=== PATIENT | male | born 1955 | race Caucasian/White ===

== ENCOUNTER → 2020-01-16 11:18 | Outpatient (BNVA) | payer OTHER, SELFPAY | PROVIDERS: PCP Internal Medicine; Referring Provider Internal Medicine; Visit Provider Urology | DX: Z76.89 Persons encountering health services in other specified circumstances (principal) ==

== ENCOUNTER 2020-01-19 06:30 | Outpatient (REF) | payer OTHER, SELFPAY ==
[2020-01-19 07:31] LABS: MANUAL DIFF FLAG NO
[2020-01-19 07:41] LABS: Basophils Percent Auto 0.3 % (0-2); Hematocrit 45.3 % (42-52); Hemoglobin 14.5 g/dl (14.0-18.0); Imm Gran Abs Auto 0.01 X10*3/uL (0.00-0.03); Imm Gran Pct Auto 0.3 % (0.0-0.4); Lymphocytes Absolute Auto 1.4 X10*3/uL (1.2-4.9); Lymphocytes Percent Auto 34.9 % (20-40); Mean Corpuscular Hemoglobin 30.5 pg (27.0-33.0); Mean Corpuscular Volume 95.2 fL (80-98); Mean Platelet Volume 11.4 fL (9.4-12.4); Monocytes Absolute Auto 0.3 X10*3/uL (0.1-1.2); Monocytes Percent Auto 8.8 % (2-11); Neutrophils Absolute Auto 2.2 X10*3/uL (2.0-8.3); Neutrophils Percent Auto 55.7 % (45-73); Platelet Count 158 X10*3/uL (160-400); Red Blood Count 4.76 X10*6/uL (4.60-5.80); Red Cell Distribution Width 12.6 % (11.0-16.0); White Blood Count 3.9 X10*3/uL (4.8-10.8)
[2020-01-19 08:21] LABS: Alanine Aminotransferase 19 U/L (0-40); Alkaline Phosphatase 59 U/L (39-117); Anion Gap 11 (12-20); Aspartate Amino Transferase 27 U/L (5-37); Bilirubin Total 0.5 mg/dL (0.0-1.0); Blood Urea Nitrogen 22 mg/dL (9-16); Carbon Dioxide 30 mmol/L (22-29); Chloride 105 mmol/L (96-108); Cholesterol 212 mg/dL; Estimated Glomerular Filt Rate > 60; Glucose Random 85 mg/dL (60-115); HDL Cholesterol 72 mg/dL; LDL Cholesterol Calculated 125 mg/dl; Potassium 4.5 mmol/l (3.3-5.1); Sodium 141 mmol/L (135-145); Total Protein 6.4 g/dL (6.5-8.0); Triglycerides 75 mg/dL
[2020-01-19 08:44] LABS: Thyroid Stimulating Hormone 3.16 mIU/mL (0.32-4.0)
[2020-01-19 08:46] LABS: PSA,Total (Free>4and<10) 3.62 ng/mL (0.00-4.00)
[2020-01-19 09:31] LABS: Folate 12.6 ng/mL (> or = 4.0); Vitamin B12 461 pg/mL (200-900)
== END 2020-01-19 06:31 | disposition home or self-care (01) ==
LOC: HO.LAB 06:30
PROVIDERS: Urology; PCP Internal Medicine; Visit Provider Internal Medicine
DX: N40.0 Benign prostatic hyperplasia without lower urinary tract symptoms (principal); R97.20 Elevated prostate specific antigen [PSA]; E78.00 Pure hypercholesterolemia, unspecified
CPT/HCPCS: 36415; 80053; 80061; 82607; 82746; 84153; 84443; 85025

== ENCOUNTER 2020-07-15 10:55 | Outpatient (REF) | payer MEDICARE, SELFPAY ==
[2020-07-15 12:32] LABS: Prostate Specific Antigen 3.99 ng/mL (<0.05-4.0)
== END 2020-07-15 10:56 | disposition home or self-care (01) ==
LOC: HO.LAB 10:55
PROVIDERS: PCP Internal Medicine; Visit Provider Urology
DX: Z12.5 Encounter for screening for malignant neoplasm of prostate (principal); R97.20 Elevated prostate specific antigen [PSA]
CPT/HCPCS: 36415; 84153

== ENCOUNTER → 2020-07-29 10:30 | Outpatient (BNVA) | payer MEDICARE, SELFPAY | PROVIDERS: PCP Internal Medicine; Visit Provider Urology | CPT/HCPCS: Q3014 ==

== ENCOUNTER 2021-01-24 06:20 | Outpatient (REF) | payer MEDICARE, SELFPAY ==
[2021-01-24 06:25] LABS: MANUAL DIFF FLAG NO
[2021-01-24 07:43] LABS: Basophils Percent Auto 0.5 % (0-2); Hematocrit 45.2 % (42-52); Hemoglobin 14.8 g/dl (14.0-18.0); Lymphocytes Absolute Auto 1.4 X10*3/uL (1.2-4.9); Lymphocytes Percent Auto 35.6 % (20-40); Mean Corpuscular HGB Conc 32.7 g/dl (31.0-36.0); Mean Corpuscular Hemoglobin 30.8 pg (27.0-33.0); Mean Platelet Volume 11.8 fL (9.4-12.4); Monocytes Absolute Auto 0.4 X10*3/uL (0.1-1.2); Monocytes Percent Auto 10.4 % (2-11); Neutrophils Absolute Auto 2.1 X10*3/uL (2.0-8.3); Neutrophils Percent Auto 53.5 % (45-73); Platelet Count 147 X10*3/uL (160-400); Red Blood Count 4.81 X10*6/uL (4.60-5.80); Red Cell Distribution Width 12.8 % (11.0-16.0); White Blood Count 3.9 X10*3/uL (4.8-10.8)
[2021-01-24 07:55] LABS: Alanine Aminotransferase 22 U/L (0-40); Albumin Level 4.2 g/dL (3.5-5.0); Alkaline Phosphatase 60 U/L (39-117); Anion Gap 12 (12-20); Aspartate Amino Transferase 29 U/L (5-37); Bilirubin Total 0.7 mg/dL (0.0-1.0); Blood Urea Nitrogen 22 mg/dL (9-16); Calcium 9.1 mg/dL (8.4-10.2); Carbon Dioxide 27 mmol/L (22-29); Chloride 107 mmol/L (96-108); Cholesterol 223 mg/dL; Estimated Glomerular Filt Rate > 60; Glucose Random 79 mg/dL (60-115); HDL Cholesterol 72 mg/dL; LDL Cholesterol Calculated 136 mg/dl; Potassium 4.2 mmol/L (3.3-5.1); Sodium 142 mmol/L (135-145); Total Protein 6.6 g/dL (6.5-8.0); Triglycerides 78 mg/dL
[2021-01-24 08:17] LABS: Free T4 (Free Thyroxine) 0.98 ng/dL (0.71-1.85)
[2021-01-24 08:19] LABS: PSA,Total (Free>4and<10) 4.81 ng/mL (0.00-4.00); Thyroid Stimulating Hormone 4.25 uIU/mL (0.32-4.0)
[2021-01-24 09:33] LABS: Folate 12.9 ng/mL (> or = 4.0); Vitamin B12 396 pg/mL (200-900)
[2021-01-25 10:45] LABS: Free Prostate Spec Ag 0.6 ng/mL; Percent Free Prostate Spec Ag 14 % (calc) (>25); Prostate Specific Ag Total 4.3 ng/mL (< OR = 4.0)
== END 2021-01-24 06:21 | disposition home or self-care (01) ==
LOC: HO.LAB 06:20
PROVIDERS: Urology; PCP Internal Medicine; Visit Provider Internal Medicine
DX: E78.00 Pure hypercholesterolemia, unspecified (principal); N13.8 Other obstructive and reflux uropathy; N40.1 Benign prostatic hyperplasia with lower urinary tract symptoms; R97.20 Elevated prostate specific antigen [PSA]
CPT/HCPCS: 36415; 80053; 80061; 82607; 82746; 84153; 84154; 84439; 84443; 85025

== ENCOUNTER → 2021-01-28 12:16 | Outpatient (BNVA) | payer MEDICARE, SELFPAY | PROVIDERS: PCP Internal Medicine; Visit Provider Urology | DX: N40.0 Benign prostatic hyperplasia without lower urinary tract symptoms (principal); R97.20 Elevated prostate specific antigen [PSA] | CPT/HCPCS: Q3014 ==

== ENCOUNTER 2021-06-23 08:04 | Outpatient (REF) | payer MEDICARE, SELFPAY ==
[2021-06-23 08:42] LABS: MANUAL DIFF FLAG NO
[2021-06-23 09:22] LABS: Basophils Percent Auto 0.5 % (0-2); Hematocrit 46.5 % (42.0-52.0); Hemoglobin 15.2 g/dl (14.0-18.0); Imm Gran Abs Auto 0.01 X10*3/uL (0.00-0.03); Imm Gran Pct Auto 0.2 % (0.0-0.4); Lymphocytes Absolute Auto 1.3 X10*3/uL (1.2-4.9); Lymphocytes Percent Auto 32.5 % (20-40); Mean Corpuscular HGB Conc 32.7 g/dl (31.0-36.0); Mean Corpuscular Hemoglobin 31.1 pg (27.0-33.0); Mean Corpuscular Volume 95.3 fL (80.0-98.0); Mean Platelet Volume 11.4 fL (9.4-12.4); Monocytes Absolute Auto 0.4 X10*3/uL (0.1-1.2); Monocytes Percent Auto 8.7 % (2-11); Neutrophils Absolute Auto 2.3 x10*3/uL (2.0-8.3); Neutrophils Percent Auto 58.1 % (45-73); Platelet Count 147 X10*3/uL (160-400); Red Blood Count 4.88 X10*6/uL (4.60-5.80); Red Cell Distribution Width 12.4 % (11.0-16.0)
[2021-06-23 10:12] LABS: Free T4 (Free Thyroxine) 0.97 ng/dL (0.71-1.85)
[2021-06-23 10:38] LABS: Thyroid Stimulating Hormone 2.81 uIU/mL (0.32-4.0)
[2021-06-23 16:22] LABS: PSA,Total (Free>4and<10) 3.51 ng/mL (0.00-4.00)
== END 2021-06-23 08:05 | disposition home or self-care (01) ==
LOC: HO.LAB 08:04
PROVIDERS: PCP Internal Medicine; Visit Provider Urology
DX: Z12.5 Encounter for screening for malignant neoplasm of prostate (principal); N13.8 Other obstructive and reflux uropathy; N40.1 Benign prostatic hyperplasia with lower urinary tract symptoms; R97.20 Elevated prostate specific antigen [PSA]; D69.6 Thrombocytopenia, unspecified
CPT/HCPCS: 36415; 84153; 84439; 84443; 85025

== ENCOUNTER → 2021-07-27 08:27 | Outpatient (BNVA) | payer MEDICARE, SELFPAY | PROVIDERS: PCP Internal Medicine; Visit Provider Urology | DX: N40.0 Benign prostatic hyperplasia without lower urinary tract symptoms (principal); R97.20 Elevated prostate specific antigen [PSA] | CPT/HCPCS: Q3014 ==

== ENCOUNTER 2021-10-25 13:53 | Outpatient (REF) | payer MEDICARE, SELFPAY ==
--- NOTE | ~2021-10-25 | XR_ITS ---
EXAMINATION: XR PELVIS WITH HIP, RIGHT XR SACROILIAC JOINTS CLINICAL INFORMATION: Sacrococcygeal disorders. Right hip and sacroiliac joint pain COMPARISON: None TECHNIQUE: Frontal view of the pelvis with 2 views of the right hip. 3 views of the sacroiliac joints. FINDINGS: There is no fracture or dislocation. The hips are well aligned. Joint spaces are maintained. The pelvic rim is intact. The pubic symphysis is well aligned. There is a normal bowel gas pattern. The sacroiliac joints are symmetric. No abnormal fusion. No abnormal sclerosis. There is some osteophyte formation along the inferior aspect of the bilateral sacroiliac joints, right greater than left. XR/XR sacroiliac joint 1-2V IMPRESSION: Mild degenerative changes along the inferior aspect of the sacroiliac joints, right greater than left. Otherwise unremarkable appearance of the pelvis/hips.
--- NOTE | ~2021-10-25 | XR_ITS ---
EXAMINATION: XR PELVIS WITH HIP, RIGHT XR SACROILIAC JOINTS CLINICAL INFORMATION: Sacrococcygeal disorders. Right hip and sacroiliac joint pain COMPARISON: None TECHNIQUE: Frontal view of the pelvis with 2 views of the right hip. 3 views of the sacroiliac joints. FINDINGS: There is no fracture or dislocation. The hips are well aligned. Joint spaces are maintained. The pelvic rim is intact. The pubic symphysis is well aligned. There is a normal bowel gas pattern. The sacroiliac joints are symmetric. No abnormal fusion. No abnormal sclerosis. There is some osteophyte formation along the inferior aspect of the bilateral sacroiliac joints, right greater than left. XR/XR hip RT w PEL1V IMPRESSION: Mild degenerative changes along the inferior aspect of the sacroiliac joints, right greater than left. Otherwise unremarkable appearance of the pelvis/hips.
== END 2021-10-25 13:54 | disposition home or self-care (01) ==
LOC: HO.XRAY 13:53
PROVIDERS: PCP Family Medicine; Visit Provider Nurse Practitioner Family
DX: M53.3 Sacrococcygeal disorders, not elsewhere classified (principal)
CPT/HCPCS: 72200; 73502

== ENCOUNTER 2022-01-20 06:19 | Outpatient (REF) | payer MEDICARE, SELFPAY ==
[2022-01-20 08:29] LABS: Prostate Specific Antigen 4.05 ng/mL (<0.05-4.0)
== END 2022-01-20 06:20 | disposition home or self-care (01) ==
LOC: HO.LAB 06:19
PROVIDERS: PCP Internal Medicine; Visit Provider Urology
DX: Z12.5 Encounter for screening for malignant neoplasm of prostate (principal); N40.1 Benign prostatic hyperplasia with lower urinary tract symptoms; N13.8 Other obstructive and reflux uropathy
CPT/HCPCS: 36415; 84153

== ENCOUNTER → 2022-01-27 13:37 | Outpatient (BNVA) | payer MEDICARE, SELFPAY | PROVIDERS: PCP Internal Medicine; Visit Provider Urology | DX: R97.20 Elevated prostate specific antigen [PSA] (principal); N40.0 Benign prostatic hyperplasia without lower urinary tract symptoms | CPT/HCPCS: 99212 ==

== ENCOUNTER 2022-02-14 06:43 | Outpatient (REF) | payer MEDICARE, SELFPAY ==
[2022-02-14 06:50] LABS: MANUAL DIFF FLAG NO
[2022-02-14 07:44] LABS: Basophils Percent Auto 0.7 % (0-2); Hematocrit 47.1 % (42.0-52.0); Hemoglobin 15.4 g/dl (14.0-18.0); Imm Gran Abs Auto 0.01 X10*3/uL (0.00-0.03); Imm Gran Pct Auto 0.2 % (0.0-0.4); Lymphocytes Absolute Auto 1.5 X10*3/uL (1.2-4.9); Lymphocytes Percent Auto 36.4 % (20-40); Mean Corpuscular HGB Conc 32.7 g/dl (31.0-36.0); Mean Platelet Volume 11.2 fL (9.4-12.4); Monocytes Absolute Auto 0.3 X10*3/uL (0.1-1.2); Neutrophils Absolute Auto 2.3 x10*3/uL (2.0-8.3); Neutrophils Percent Auto 54.7 % (45-73); Platelet Count 147 X10*3/uL (160-400); Red Blood Count 4.96 X10*6/uL (4.60-5.80); Red Cell Distribution Width 12.7 % (11.0-16.0); White Blood Count 4.2 X10*3/uL (4.8-10.8)
[2022-02-14 08:07] LABS: Alanine Aminotransferase 26 U/L (0-40); Albumin Level 4.3 g/dL (3.5-5.0); Alkaline Phosphatase 57 U/L (39-117); Anion Gap 13 (12-20); Aspartate Amino Transferase 39 U/L (5-37); Bilirubin Total 0.5 mg/dL (0.0-1.0); Blood Urea Nitrogen 25 mg/dL (9-16); Calcium 9.2 mg/dL (8.4-10.2); Carbon Dioxide 27 mmol/L (22-29); Chloride 106 mmol/L (96-108); Cholesterol 243 mg/dL; Estimated Glomerular Filt Rate > 60; Glucose Random 80 mg/dL (60-115); HDL Cholesterol 71 mg/dL; LDL Cholesterol Calculated 154 mg/dl; Potassium 4.5 mmol/L (3.3-5.1); Sodium 141 mmol/L (135-145); Total Protein 6.7 g/dL (6.5-8.0); Triglycerides 90 mg/dL
[2022-02-14 08:31] LABS: Free T4 (Free Thyroxine) 0.96 ng/dL (0.71-1.85); PSA,Total (Free>4and<10) 3.83 ng/mL (0.00-4.00); Thyroid Stimulating Hormone 3.62 uIU/mL (0.32-4.0)
[2022-02-14 08:40] LABS: Folate 14.3 ng/mL (> or = 4.0); Vitamin B12 430 pg/mL (200-900)
== END 2022-02-14 06:44 | disposition home or self-care (01) ==
LOC: HO.LAB 06:43
PROVIDERS: PCP Internal Medicine; Visit Provider Internal Medicine
DX: Z12.5 Encounter for screening for malignant neoplasm of prostate (principal); R97.20 Elevated prostate specific antigen [PSA]; E78.00 Pure hypercholesterolemia, unspecified
CPT/HCPCS: 36415; 80053; 80061; 82607; 82746; 84153; 84439; 84443; 85025

== ENCOUNTER 2022-03-14 07:28 | Outpatient (REF) | payer MEDICARE, SELFPAY ==
[2022-03-14 07:41] VITALS: BMI 23.6
[2022-03-14 07:42] VITALS: BP 153/83; PULSE 63; RESP 16; TEMP 36.4; O2SAT 100
--- NOTE | 2022-03-14 08:29 | W.PM.OPN ---
Operative Note Operative Note Date of Service: 03/14/22 Narrative: Preoperative diagnosis: Elevated PSA Postoperative diagnosis: elevated PSA Procedure: 1. transrectal ultrasound measurement of prostate 2. transrectal ultrasound-guided pudendal nerve block 3. transrectal ultrasound-guided prostate biopsy 12 core Surgeon: Dr. Mario Heredia Anesthetic: Local Indications for procedure: Elevated PSA 4.0 Procedure: After informed consent was verified, the patient was brought into the procedure area and lay left-hand side down on the table. Patient identity confirmed. Perioperative antibiotics confirmed. Safety pause time out performed. JONELLE performed to dilate rectal sphincter Iodine 10cc with Gel was placed per rectum Ultrasound probe was placed per rectum The prostate was measured in 3 dimensions Total volume equals 35 gm No cystic structures were noted No calcifications were noted at the surgical margin The prostate was otherwise homogeneous in nature An ultrasound-guided pudendal nerve block was performed using 10 cc of 1% lidocaine. 8 cc was placed at the base and 2 cc of the apex. A 12 core biopsy was performed with 6 cores each side. Two cores were taken at the apex, mid and base. Cores were spaced between lateral and medial. He tolerated the procedure well. Was able to ambulate to bathroom after 5 minutes. Printed instructions regarding antibiotic use and common side effects such as low-grade temperature, potential infection and bleeding were given Pathology: 12 core prostate biopsy.
[2022-03-14 08:39] VITALS: BP 150/89; PULSE 70; RESP 16; O2SAT 99
== END 2022-03-14 07:29 | disposition home or self-care (01) ==
LOC: HO.MS 07:28
PROVIDERS: PCP Internal Medicine; Visit Provider Urology
PROC: (CPT 55700; principal; 2022-03-14 08:00)
DX: C61 Malignant neoplasm of prostate (principal); R97.20 Elevated prostate specific antigen [PSA]
CPT/HCPCS: 55700; 76942; 88305; 88342; 88344

== ENCOUNTER → 2022-03-21 11:46 | Outpatient (BNVA) | payer MEDICARE, SELFPAY | PROVIDERS: PCP Internal Medicine; Visit Provider Urology | DX: C61 Malignant neoplasm of prostate (principal) | CPT/HCPCS: Q3014 ==

== ENCOUNTER → 2022-04-07 10:44 | Outpatient (REF) | payer MEDICARE, SELFPAY ==
--- NOTE | ~2022-04-07 | NM_ITS ---
EXAMINATION: NM BONE SCAN OF THE WHOLE BODY CLINICAL INFORMATION: Malignant neoplasm of prostate. COMPARISON: No previous bone scan is available for comparison. Radiographs of the sacroiliac joints and right hip dated 10/25/2021 are available for comparison. Bladder ultrasound dated 03/21/2019 is available for comparison. TECHNIQUE: Multiple gamma scintillation camera images of the whole body were performed 2.75 hours following the intravenous administration of 26 mCi Tc-99m MDP. FINDINGS: In the head, no significant abnormalities are present. In the thoracic cage and upper extremities, there is minimally increased activity in the acromioclavicular and sternoclavicular joints bilaterally and in the costochondral junctions of the first ribs bilaterally and the right second rib. There is a focus of mildly increased activity in the radial side of the left hand probably in the first carpometacarpal joint. Some residual radiopharmaceutical at the injection site in the left antecubital fossa is noted. In the spine, no significant abnormalities are present. In the pelvis, there is some activity visualized adjacent to the right side of the urinary bladder which is probably due to a bladder diverticulum, and this was visualized on the 03/21/2019 pelvis ultrasound. This focus is well visualized only on the right anterior oblique and right posterior oblique spot views. In the lower extremities, foci of mildly increased activity are present in the left knee. A slightly more prominent focus of increased activity is present in the right first metatarsophalangeal joint region. No other definite bony abnormalities are noted. The urinary bladder and faint visualization of both kidneys are noted. NM/NM bone scan whole body IMPRESSION: A few mild nonspecific abnormalities are noted as described above and these are all likely arthritic or traumatic in etiology. None of these abnormalities is strongly suspicious for metastatic disease.
== END ==
LOC: HO.NUCMED 10:44
PROVIDERS: PCP Internal Medicine; Visit Provider Urology
DX: C61 Malignant neoplasm of prostate (principal); C79.51 Secondary malignant neoplasm of bone
CPT/HCPCS: 78306; A9503

== ENCOUNTER → 2022-05-02 15:35 | Outpatient (BNVA) | payer MEDICARE, SELFPAY | PROVIDERS: PCP Internal Medicine; Visit Provider Urology | DX: C61 Malignant neoplasm of prostate (principal) | CPT/HCPCS: 99212 ==

== ENCOUNTER → 2022-06-02 08:43 | Outpatient (BNVA) | payer MEDICARE, SELFPAY | PROVIDERS: PCP Internal Medicine; Visit Provider Urology | DX: C61 Malignant neoplasm of prostate (principal); Z79.899 Other long term (current) drug therapy | CPT/HCPCS: Q3014 ==

== ENCOUNTER → 2022-06-21 09:55 | Outpatient (BNVA) | payer MEDICARE, SELFPAY | PROVIDERS: PCP Internal Medicine; Visit Provider Urology | DX: C61 Malignant neoplasm of prostate (principal) | CPT/HCPCS: 96402; J9217 ==

== ENCOUNTER 2022-07-10 07:00 | Day surgery (SDC) | payer MEDICARE, SELFPAY ==
[2022-07-10 07:14] VITALS: BP 151/93; PULSE 64; RESP 18; TEMP 36.4; O2SAT 100; BMI 24.2
[2022-07-10] MEDS: Lactated Ringers 1,000 ML 50 ML IVCONT ×2 (10:21→10:27)
--- NOTE | 2022-07-10 12:05 | MHC.SHP ---
Pre-Procedural Eval Section A Date of Service: 07/10/22 The patient is an INPATIENT: No Changes since office visit: No Cold of Flu in the past 2 weeks, No New Medical Problems, No Changes in Medication and No Patient answered all questions The History & Physical has been completed within 30 days and I have reviewed it.: Yes Section B Chief Complaint: Malignant neoplasm of prostate Allergies: Allergies Allergy/AdvReac Type Severity Reaction Status Date / Time No Known Allergies Allergy Verified 07/05/22 14:05 Review of Systems Sugical H&P ROS: Negative: Constitution, Cardiovascular, Respiratory, Neurological, Psychiatric, Hem-Onc, Allergic/Immunologic, Gastrointestinal, Genitourinary, Musculoskeletal, Integumentary, Endocrine and Eyes/Ears/Nose/Throat Exam Surgical H&P Exam: Normal: HEENT, Normal: Heart, Normal: Lungs, Normal: Extremities, Normal: Abdomen, Normal: Skin and Normal: Neurological Plan Diagnosis/Plan: Unchanged (SpaceOar placement) I have reviewed the history and physical and performed a pertinent physical examination on my patient. No changes have occurred unless specified. Time Spent With Patient Time: Total time managing care of this patient today ____ minutes.
--- NOTE | 2022-07-10 12:15 | HO.ANESPROP2 ---
HPI - Anesthesia Eval Consult details Narrative: for space OAR with gold seed PMFSH Active Problems Active Problems: All Active Problems (Updated 06/02/22 @ 09:13 by Mario Heredia MD) Prostate cancer (Acute) Annual physical exam (Acute) Sacro-iliac pain (Acute) Costochondritis (Acute) Dizziness (Acute) Acquired thrombocytopenia (Acute) TSH elevation (Acute) Annual physical exam (Acute) Elevated PSA (Acute) Hypercholesterolemia (Acute) BPH (benign prostatic hyperplasia) (Acute) Annual physical exam (Acute) Acne (Acute) C3 cervical fracture (Acute) Past Medical History Medical History Acne BPH (benign prostatic hyperplasia) C3 cervical fracture Dupuytren's contracture of right hand GERD (gastroesophageal reflux disease) Hiatal hernia Hypercholesterolemia Family History Family history of problems with anesthesia: No Surgical History History of Problems with Anesthesia: No Social History Social History Housing: Apartment Alcohol intake: current Patient Tobacco Use Status: Former Tobacco user Quit Date: 8 years ago Tobacco use type: Cigarette Years Smoked: stopped 07/2014 e-Cigarette/Vaping Use: Never Used Second Hand Smoke Exposure: No Use of substances other than those prescribed or required for medical reasons: No Are you DNR?: No Advance Directives: No Advance Directives Information Provided: Yes service: No Current occupational status: retired Cognitive needs: No Hearing needs: No Vision needs: Yes Meds Allergies Allergy/AdvReac Type Severity Reaction Status Date / Time No Known Allergies Allergy Verified 07/05/22 14:05 Active Medications: Current Medications Lactated Ringer's (Lr) 1,000 mls @ 50 mls/hr IVCONT .Q20H PARISH Last Admin: 07/10/22 10:27 Dose: 50 mls/hr Home Medications Medication Instructions Recorded Confirmed Last Taken Type multivitamin 1 tab PO DAILY 01/18/21 07/05/22 Unknown History cholecalciferol (vitamin D3) 25 25 mcg PO DAILY 01/24/22 07/05/22 Unknown History mcg (1,000 unit) capsule glucosamine sulfate 500 mg tablet 500 mg PO DAILY 01/24/22 07/05/22 Unknown History (Glucosamine) minocycline 100 mg capsule 100 mg PO DAILY 01/24/22 07/05/22 Unknown History Exam Exam Date and Time: July 10, 2022 1215 Height,Weight and Vital Signs: Height 5 ft 9 in Weight 74.389 kg Last Vital Signs Temp 97.6 F 07/10/22 07:14 Pulse 64 07/10/22 07:14 Resp 18 07/10/22 07:14 BP 151/93 H 07/10/22 07:14 Pulse Ox 100 07/10/22 07:14 O2 Del Method Room Air 07/10/22 07:14 Airway Mallampati Class: II TM Dist: >3cm Neck ROM: Full Heart: rrr Lungs: cta Assessment and Plan Assessment Anesthesia Assessment: Anesthesia Plan Discussed and Chart Reviewed Final Anesthetic Review Family History of Problems with Anesthesia: No History of Problems with Anesthesia: No NPO: Yes ASA Class: III Final Preanesthetic Review: No Changes in Pt Med Stat, Meds/Allgs Chart Reviewed, Consent Obtained/Reviewed and Anes Risks/Benef Reviewed Patient Risk: Intermediate Procedure Risk: Intermediate Anesthetic Plan Anesthetic Plan: GA Disposition: Standard PACU
--- NOTE | 2022-07-10 12:55 | W.PM.OPN ---
Operative Note Operative Note Date of Service: 07/10/22 Narrative: Preoperative diagnosis: Prostate cancer Postoperative diagnosis: Prostate cancer Procedure: 1. Transrectal ultrasound-guided perineal gold seed placement 2. Treansrectal ultrasound-guided perineal SpaceOAR gel placement Surgeon: Dr. Mario Heredia Anesthetic: Sedation Indications for procedure: Prostate Cancer Procedure: After informed consent was verified, the patient was brought into the operating room and anesthesia was performed per protocol. The patient was placed in a modified dorsal lithotomy position. Gel was placed per rectum Ultrasound probe was placed per rectum. The prostate was visualized in sagittal and transverse dimensions. Local anesthetic was infiltrated in the perineal area using 10 cc of lidocaine Gold seed markers were placed in a transperineal fashion using ultrasound guidance 2 visicol seed markers placed in total. 1 on the right -. 1 on the left. The purpose is for triangulation. The 2nd part of the procedure was placement of SpaceOAR gel to allow consolidation for radiation delivery. SpaceOar injectable prepared on back table The delivery needle was advanced bevel down in the midline under ultrasound guidance to the apex of the prostate. It was advanced in the plane the prostate from the rectum to the midpoint of the prostate. Location was determined using sagittal and transverse imaging. At the midpoint of the prostate 1 cc of saline was placed to confirm needle position. Second cc of saline was placed to confirm spread toward the base of the prostate. With the needle in the confirmed position 10 cc of gel mixture was injected. Good separation was seen of the rectum from the prostate space running in the midline from the base toward the apex of the prostate. Following completion of the procedure the probe was removed from the rectum. He tolerated the procedure well. He was extubated in the operating room and transferred in stable condition to the recovery area. Pathology none Drains none
[2022-07-10 13:04] VITALS: BP 130/86; PULSE 81; RESP 14; TEMP 36.2; O2SAT 100
[2022-07-10 13:09] VITALS: BP 130/86; PULSE 81; RESP 14; TEMP 36.2; O2SAT 100
[2022-07-10 13:14] VITALS: BP 129/83; PULSE 75; RESP 16; O2SAT 98
[2022-07-10 13:19] VITALS: BP 124/81; PULSE 70; RESP 16; O2SAT 100
[2022-07-10 13:33] VITALS: BP 126/79; PULSE 76; RESP 16; TEMP 36.2; O2SAT 100
== END 2022-07-10 14:07 | disposition home or self-care (01) ==
PROVIDERS: PCP Internal Medicine; Visit Provider Urology
PROC: (CPT 55876; principal; 2022-07-10 09:50)
DX: C61 Malignant neoplasm of prostate (principal); N40.0 Benign prostatic hyperplasia without lower urinary tract symptoms
CPT/HCPCS: 55876; 55874; A4648; C1889; J1100; J1956; J2405; J3010

== ENCOUNTER 2022-10-13 10:49 | Outpatient (AMB) | payer MEDICARE, SELFPAY ==
--- NOTE | 2022-10-13 11:12 | MHC.OFFVIS ---
Intake Intake Visit Reasons: 3 month space oar Intake Note: Patient is present for Follow Up Urology Med: Finasteride Antibiotic Allergy:none Blood Thinner: None Allergies No Known Allergies Allergy (Verified 10/13/22 11:12) Medication List - Last Reconciled 10/13/22 by Mario Heredia MD cholecalciferol (vitamin D3) 25 mcg PO DAILY finasteride 5 mg PO DAILY 90 days glucosamine sulfate (Glucosamine) 500 mg PO DAILY multivitamin 1 tab PO DAILY HPI HPI Comments History of Present Illness Details Florian is a very pleasant male. He is a patient of Dr. Morrison. He is seen for the following urologic conditions. - elevated PSA - BPH Completed external beam radiation Did have some degree of difficulty urinating responded to tamsulosin May cease 6 weeks after radiation completed In also with mild hot flashes but they are tolerable Four month follow-up lab work Prostate Cancer 03/2322 Grade group 3, Low Volume 09/22 EXBRT with short-term 6 month [facility] [address] George 20 fractions Diagnosed for PSA 4.1 Size at diagnosis 35 gm pT1c Histologic type: Adenocarcinoma Histologic grade: ? [place] score: 4+3=7 (right base lateral) 20% ; 3+3=6 (right mid lateral) 20% Tumor quantitation: ? Number cores positive: 2 Total number of cores: 12 ? % of tissue involved: = Less than 5% of all tissue examined Periprostatic fat inv.: Not identified Seminal vesicle inv.: Not identified Perineural inv.: Not identified LVI: Not identified Laboratory investigations include 02/18 4.5, 07/20 4.0, 01/19 3.6, 07/21 3.9, 01/20 4.8, 06/21 3.5, 01/21 4.1 14% Imaging 04/24 - MRI PI-RADS 3 0.7 cc organ contained Genetics - 04/24 Prolaris multimodal therapy PFSH Medical History Acne BPH (benign prostatic hyperplasia) C3 cervical fracture Dupuytren's contracture of right hand GERD (gastroesophageal reflux disease) Hiatal hernia Hypercholesterolemia Social History Housing: Apartment Alcohol intake: current Patient Tobacco Use Status: Former Tobacco user Quit Date: 8 years ago Tobacco use type: Cigarette Years Smoked: stopped 07/2014 e-Cigarette/Vaping Use: Never Used Second Hand Smoke Exposure: No service: No Current occupational status: retired Cognitive needs: No Hearing needs: No Vision needs: Yes Review of Systems Const Denies chills and Denies fever(s) Card Reports no additional complaints and Denies syncope Resp Denies cough GI Denies abdominal pain and Denies heartburn Reports as per HPI and Denies change in libido Neuro Denies syncope Psych Denies change in libido Endo Denies change in libido Physical Exam Const General: cooperative, healthy appearing, comfortable and no acute distress Orientation/consciousness: patient oriented x3 HEENT Face and sinus: Yes normal facial exam Mouth: moist mucous membranes Neck Neck: Yes normal visual inspection, Yes full ROM and Yes trachea midline Chest Chest palpation & inspection: normal inspection of the chest Resp Effort & Inspection: normal respiratory effort, able to speak in complete sentences and no respiratory distress GI Inspection: Yes normal to inspection Back/Spine/Pelvis Cervical Spine: normal cervical lordosis Thoracic/Lumbar Spine: thoracic and lumbar spine normal to inspection Skin General skin exam: no rashes or lesions noted Neuro General: patient oriented x3, gait normal, tone normal and moves all extremities Extrem General: Yes normal to inspection and Yes capillary refill normal Assessment & Plan Assessment & Plan (1) Prostate cancer: Comment: 03/23 unfavorable intermediate risk Code(s): C61 - Malignant neoplasm of prostate (2) Elevated PSA: Code(s): R97.20 - Elevated prostate specific antigen [PSA] Plan 4 month follow-up Orders: Orders Prostate Specific Antigen 4 Months C61 - Malignant neoplasm of prostate Testosterone, Total 4 Months C61 - Malignant neoplasm of prostate Patient Instructions: Imaging studies, laboratory and physical exam results were discussed and reviewed in detail. No major barriers to patient understanding were identified. An opportunity to ask questions regarding the treatment plan was provided. All questions were answered. The patient expressed understanding and agreement with the above treatment plan. The patient is aware they should contact our office by phone for worsening of their current condition or the appearance of new urologic symptoms. Compliance is encouraged with any medications and followup testing that is ordered. It is a privilege to participate in the urologic care of your patient. If you have any questions or concerns regarding treatment for the above conditions, or other urologic issues, please do not hesitate to contact me. The office telephone contact is [phone]. This note is constructed using voice recognition software. While every effort has been made to ensure accuracy medicaid eligibility specialist errors may have been included. Yours sincerely, Dr Mario Heredia MD, [facility] - Urology Providers of Expert, Compassionate Care for the Genitourinary System Coding Level of Care Code Est Pt Level 3 (07078) Diagnoses Prostate cancer C61 Elevated PSA R97.20
== END 2022-10-13 11:43 | disposition home or self-care (01) ==
PROVIDERS: Visit Provider Urology
DX: C61 Malignant neoplasm of prostate (principal); R97.20 Elevated prostate specific antigen [PSA]
CPT/HCPCS: 99213

== ENCOUNTER → 2022-10-13 10:49 | Outpatient (BNVA) | payer MEDICARE, SELFPAY | PROVIDERS: Visit Provider Urology | DX: C61 Malignant neoplasm of prostate (principal); R97.20 Elevated prostate specific antigen [PSA] | CPT/HCPCS: 99212 ==

== ENCOUNTER 2023-01-31 11:16 | Outpatient (AMB) | payer MEDICARE, SELFPAY ==
[2023-01-31 11:42] VITALS: BP 128/68; PULSE 62; O2SAT 98; BMI 24.1
--- NOTE | 2023-01-31 11:42 | MHC.PC.OV ---
Vital Signs 01/31/23 11:42 Height 5 ft 9 in Weight 163 lb BMI 24.1 BP 128/68 Blood Pressure Location Lt brachial Position Sitting Pulse 62 Pulse Source Pulse Oximeter Pulse Oximetry (%) 98 Oxygen Delivery Method Room Air Intake Visit Reasons: Annual Exam Allergies No Known Allergies Allergy (Verified 01/31/23 11:43) Medication List - Last Reconciled 01/31/23 by Raquel Ugarte MD cholecalciferol (vitamin D3) 25 mcg PO DAILY finasteride 5 mg PO DAILY 90 days multivitamin 1 tab PO DAILY Tobacco use date assessed: 01/31/23 Fall risk assessment: No Falls in past year Last assessed Fall Risk: 01/31/23 Dental Screening Dental Screen Date: 01/31/23 Did you have a dental visit in the last 12 months?: Yes Did you have a dental problem in the last 6 months where you did not have access to dental care?: No Was dental information given to patient?: Patient has dentist HPI Annual Exam HPI Details 67-year-old male with prostate cancer hypercholesterolemia and sacroiliac pain last seen in December 2021 for physical. Patient is up-to-date with colonoscopy. Review of the notes follows up with urology prostate cancer diagnosis January 2022 on finasteride referred in April 2022 to [facility] Dr. Calderon radiation advised prostatectomy patient had a gold seed implantation undergone radiation july to August 2022 managed with Flomax this time. now on finasteried- stopped micxocycline (used for derm-Dr. Bourgeois) R foot numbness, plantar fasciitis PFSH Medical History Acne BPH (benign prostatic hyperplasia) C3 cervical fracture Dupuytren's contracture of right hand GERD (gastroesophageal reflux disease) Hiatal hernia Hypercholesterolemia Social History (Updated 01/31/23 @ 12:04 by Raquel Ugarte MD) Housing: Apartment Alcohol intake: current Patient Tobacco Use Status: Former Tobacco user Quit Date: 8 years ago Tobacco use type: Cigarette Years Smoked: stopped 07/2014 (intermittent 17 year 4-5 cigarettes ) e-Cigarette/Vaping Use: Never Used Second Hand Smoke Exposure: No service: No Current occupational status: retired Cognitive needs: No Hearing needs: No Vision needs: Yes Questionnaire PHQ-9 Over the last 2 weeks, how often have you been bothered by any of the following problems? 1. Little interest or pleasure in doing things: not at all 2. Feeling down, depressed, or hopeless: not at all 3. Trouble falling or staying asleep, or sleeping too much: not at all 4. Feeling tired or having little energy: not at all 5. Poor appetite or overeating: not at all 6. Feeling bad about yourself - or that you are a failure or have let yourself or your family down: not at all 7. Trouble concentrating on things, such as reading the newspaper or watching television: not at all 8. Moving or speaking so slowly that other people could have noticed. Or the opposite - being so fidgety or restless that you have been moving around a lot more than usual: not at all 9. Thoughts that you would be better off or of hurting yourself in some way: not at all Total score: 0 Depression Screening Interpretation: Negative Depression Screening Done: Yes Source: Developed by Drs. Harley Silver, Radha Morales, Christian Rodriguez and colleagues, with an educational richard from [employer]. Thrive Questionnaire Date Thrive assessed: 01/31/23 I am a: Patient What is your living situation today?: I have a steady place to live Within the past 12 months, did the food you bought not last and you didn't have the money to get more?: Never true Within the past 12 months, did you worry whether your food would run out before you got money to buy more?: Never true Do you have trouble paying for medicines?: No Do you have trouble getting transportation to medical appointments?: No Do you have trouble paying your heating and electricity bill?: No Do you have trouble taking care of your child, family member or friend?: No Do you have trouble with day-to-day activities such as bathing, preparing meals, shopping, managing finances, etc.?: No Are you currently unemployed and looking for a job?: No Are you interested in more education?: No Currently or been in a relationship where the following occur: no concerns reported AUDIT C Alcohol Use Questionnaire (AUDIT-C) 1. How often do you have a drink containing alcohol?: 4 or more times a week 2. How many drinks containing alcohol do you have on a typical day when you are drinking?: 1 or 2 3. How often do you have six or more drinks on one occasion?: Never Total Score: 4 REE-7 AMB Questionnaire REE-7 Date REE - 7 assessed: 01/31/23 Feeling nervous, anxious, or on edge: 0 = Not at all Not being able to stop or control worryin = Not at all Worrying too much about different things: 0 = Not at all Trouble relaxin = Not at all Being so restless that it is hard to sit still: 0 = Not at all Becoming easily annoyed or irritable: 0 = Not at all Feeling afraid as if something awful might happen: 0 = Not at all Total REE-7 score (0-4 normal; 5-9 mild; 10-14 moderate; 15-21 severe): 0 Source: Developed by Drs. Harley Silver, Radha Morales, Christian Rodriguez and colleagues, with an educational irchard from [employer]. Review of Systems Const Denies poor appetite and Denies weakness Eyes Denies no additional complaints ENT Reports Normal hearing present, Denies dizziness, Denies nasal congestion, Denies tinnitus and Denies sore throat Card Denies chest pain, Denies syncope, Denies rapid heart rate and Denies dyspnea Resp Denies cough and Denies dyspnea GI Denies change in stool character, Reports constipation, Denies diarrhea, Denies nausea and Denies vomiting Denies dysuria and Denies urinary frequency Neuro Reports Normal hearing present, Denies confusion, Denies dizziness, Denies syncope and Denies weakness Psych Denies confusion Physical exam (Primary Care) Vital Signs: Last Vital Signs Pulse 62 01/31/23 11:42 BP 128/68 01/31/23 11:42 Pulse Ox 98 01/31/23 11:42 Oxygen Delivery Method Room Air 01/31/23 11:42 BMI result Body Mass Index 24.1 Tobacco/Smoking Status: Tobacco use Status Tobacco use date assessed 01/31/23 01/31/23 11:51 Patient Tobacco Use Status Former Tobacco user 01/31/23 11:51 Tobacco use type Cigarette 01/31/23 11:51 e-Cigarette/Vaping Use Never Used 01/31/23 11:51 PHQ-9: PHQ-9 Score PHQ-9: Total score 0 01/31/23 11:51 Depression Screening Interpretation: Negative Thrive Assessment: Date of Thrive Assessment Date Thrive assessed 01/31/23 01/31/23 11:51 Currently or been in a relationship where the following occur: no concerns reported Const General: No confusion Orientation/consciousness: No confusion HENMT Head: Yes normocephalic Ears: external ears normal and TM's normal bilaterally Face and sinus: Yes normal facial exam Mouth: moist mucous membranes Throat: Yes tonsils normal Eyes Conjunctivae: conjunctivae normal Pupils: Equal, round and reactive pupils present and Pupil accommodation reflex normal Direct Ophthalmoscopy: normal light reflex Neck Neck: No lymphadenopathy Thyroid: Thyroid normal Chest Chest palpation & inspection: normal inspection of the chest Resp Effort & Inspection: normal respiratory effort and no audible wheezes Auscultation: clear to auscultation bilaterally, no crackles, no wheezes and lung sounds not diminished Cardio Rate: regular rate Rhythm: regular rhythm Peripheral pulses: radial pulses present and dorsalis pedis present GI Palpation (GI): no masses Auscultation: normal bowel sounds and normoactive bowel sounds Rectal Exam - Male: Yes deferred Skin General skin exam: no rashes or lesions noted Rashes: no rashes Neuro General: No confusion Cranial nerves: Yes Equal, round and reactive pupils present and Yes Normal hearing present Cognition (Neuro): normal cognition Gait exam (Neuro): Normal gait present Motor exam (neuro): 5/5 motor strength present throughout Deep tendon reflexes (DTR's): Right brachioradialis reflex intensity grade: 2+, Left brachioradialis reflex intensity grade: 2+, Right patellar reflex intensity grade: 2+ and Left patellar reflex intensity grade: 2+ Extrem General: No edema Assessment and Plan Assessment & Plan (1) Annual physical exam: Code(s): Z00.00 - Encounter for general adult medical examination without abnormal findings (2) Prostate cancer: Comment: 03/23 unfavorable intermediate risk January 2022 on finasteride referred in April 2022 to [facility] Dr. Kvng johnson.patient had a gold seed implantation undergone radiation july to August 2022 Code(s): C61 - Malignant neoplasm of prostate Plan: follows up with urology prostate cancer diagnosis January 2022 on finasteride referred in April 2022 to [facility] Dr. Kvng johnson.patient had a gold seed implantation undergone radiation july to August 2022 managed with Flomax this time (3) Hypercholesterolemia: Code(s): E78.00 - Pure hypercholesterolemia, unspecified Plan: Avoid fried foods, chicken skin, eggs, butter margarine, pastries and meat. Be it pork or beef they have a lot of cholesterol LDL goal of less than 130 and triglyceride of less than 150 (4) Numbness in feet: Code(s): R20.0 - Anesthesia of skin Plan: will do blood work if neg will do ncv Orders: Orders Complete Blood Count Auto Diff Today E78.00 - Pure hypercholesterolemia, unspecified Comprehensive Met. Panel Today E78.00 - Pure hypercholesterolemia, unspecified Thyroid Stimulating Hormone Today E78.00 - Pure hypercholesterolemia, unspecified Vitamin B12 and Folate Today E78.00 - Pure hypercholesterolemia, unspecified UA w Microscopic Today E78.00 - Pure hypercholesterolemia, unspecified Free T4 (Free Thyroxine) Today E78.00 - Pure hypercholesterolemia, unspecified Lipid Panel Today E78.00 - Pure hypercholesterolemia, unspecified Coding Level of Care Code Est Pt Prev Care >65y(65356) Diagnoses Annual physical exam Z00.00 Prostate cancer C61 Hypercholesterolemia E78.00 Numbness in feet R20.0
== END 2023-01-31 12:28 | disposition home or self-care (01) ==
PROVIDERS: Visit Provider Internal Medicine
DX: Z00.00 Encounter for general adult medical examination without abnormal findings (principal); C61 Malignant neoplasm of prostate; E78.00 Pure hypercholesterolemia, unspecified; R20.0 Anesthesia of skin
CPT/HCPCS: 99397

== ENCOUNTER 2023-02-05 07:46 | Outpatient (REF) | payer MEDICARE, SELFPAY ==
[2023-02-05 08:08] LABS: MANUAL DIFF FLAG NO
[2023-02-05 08:27] LABS: Basophils Percent Auto 0.5 % (0-2); Eosinophils Percent Auto 0.2 % (0-4); Hematocrit 41.7 % (42.0-52.0); Hemoglobin 13.8 g/dl (14.0-18.0); Imm Gran Abs Auto 0.01 X10*3/uL (0.00-0.03); Imm Gran Pct Auto 0.2 % (0.0-0.4); Lymphocytes Absolute Auto 0.9 X10*3/uL (1.2-4.9); Lymphocytes Percent Auto 22.2 % (20-40); Mean Corpuscular HGB Conc 33.1 g/dl (31.0-36.0); Mean Corpuscular Hemoglobin 31.7 pg (27.0-33.0); Mean Corpuscular Volume 95.9 fL (80.0-98.0); Mean Platelet Volume 10.7 fL (9.4-12.4); Monocytes Absolute Auto 0.3 X10*3/uL (0.1-1.2); Monocytes Percent Auto 7.4 % (2-11); Neutrophils Absolute Auto 2.8 x10*3/uL (2.0-8.3); Neutrophils Percent Auto 69.5 % (45-73); Platelet Count 149 X10*3/uL (160-400); Red Blood Count 4.35 X10*6/uL (4.60-5.80); Red Cell Distribution Width 12.6 % (11.0-16.0); White Blood Count 4.1 X10*3/uL (4.8-10.8)
[2023-02-05 08:57] LABS: Alanine Aminotransferase 37 U/L (0-40); Albumin Level 4.2 g/dL (3.5-5.0); Alkaline Phosphatase 59 U/L (39-117); Anion Gap 12 (12-20); Aspartate Amino Transferase 53 U/L (5-37); Bilirubin Total 0.4 mg/dL (0.0-1.0); Blood Urea Nitrogen 26 mg/dL (9-16); Calcium 9.7 mg/dL (8.4-10.2); Carbon Dioxide 28 mmol/L (22-29); Chloride 108 mmol/L (96-108); Cholesterol 223 mg/dL (<200); Estimated Glomerular Filt Rate > 60; Glucose Random 92 mg/dL (60-115); HDL Cholesterol 84 mg/dL (>40); LDL Cholesterol Calculated 128 mg/dL (<100); Potassium 4.7 mmol/L (3.3-5.1); Sodium 143 mmol/L (135-145); Total Protein 6.6 g/dL (6.5-8.0); Triglycerides 55 mg/dL (<150)
[2023-02-05 09:11] LABS: Free T4 (Free Thyroxine) 0.82 ng/dL (0.71-1.85); Thyroid Stimulating Hormone 1.16 uIU/mL (0.32-4.0)
[2023-02-05 09:18] LABS: Prostate Specific Antigen < 0.10 ng/mL (<0.05-4.0)
[2023-02-05 09:27] LABS: Folate 11.4 ng/mL (> or = 4.0); Vitamin B12 522 pg/mL (200-900)
[2023-02-05 10:34] LABS: Appearance Urine Clear; Color Urine Yellow; Glucose Urine UA Negative (Negative); Leukocyte Esterase Urine Negative (Negative); Nitrite Urine Negative (Negative); Specific Gravity - Urine 1.025 (1.005-1.025); Urine Blood Negative (Negative); Urine Ketones Negative (Negative); Urine Protein Negative (Neg-Trace)
[2023-02-05 10:37] LABS: Bacteria Urine None Seen (None Seen); Hyaline Casts Urine 0-2 /LPF (0-2); RBC Urine 0-2 /HPF (0-2); Squamous Epithelial Cell Urine 0-2 /HPF (0-2); WBC Urine 0-5 /HPF (0-5)
[2023-02-09 01:19] LABS: Testosterone, Total 43 ng/dL (250-1100)
== END 2023-02-05 07:47 | disposition home or self-care (01) ==
LOC: HO.LAB 07:46
PROVIDERS: Urology; PCP Internal Medicine; Visit Provider Internal Medicine
DX: E78.00 Pure hypercholesterolemia, unspecified (principal); C61 Malignant neoplasm of prostate; Z12.5 Encounter for screening for malignant neoplasm of prostate
CPT/HCPCS: 36415; 80053; 80061; 81001; 82607; 82746; 84153; 84403; 84439; 84443; 85025

== ENCOUNTER 2023-02-15 09:46 | Outpatient (AMB) | payer MEDICARE, SELFPAY ==
--- NOTE | 2023-02-15 09:58 | MHC.OFFVIS ---
Intake Intake Visit Reasons: 4m/labs(set) Intake Note: Patient is Present for Follow Up LABS/PVR Urology Medication: Finasteride Antibiotic Allergies:None Blood Thinners: None PVR: 0 Compliants: None Allergies No Known Allergies Allergy (Verified 02/15/23 10:15) Medication List - Last Reconciled 02/15/23 by Mario Heredia MD cholecalciferol (vitamin D3) 25 mcg PO DAILY finasteride 5 mg PO DAILY 90 days multivitamin 1 tab PO DAILY HPI HPI Comments History of Present Illness Details Florian is a very pleasant male. He is a patient of Dr. Morrison. He is seen for the following urologic conditions. - elevated PSA - BPH Six month follow-up PSA 02/22 <0.1, T 43 Doing well 4 month follow-up lab work Will remain on finasteride for 12 months after therapy Prostate Cancer 03/2322 Grade group 3, Low Volume 09/22 EXBRT with short-term 6 month [facility] [address] George 20 fractions Diagnosed for PSA 4.1 Size at diagnosis 35 gm pT1c Histologic type: Adenocarcinoma Histologic grade: ? Davenport score: 4+3=7 (right base lateral) 20% ; 3+3=6 (right mid lateral) 20% Tumor quantitation: ? Number cores positive: 2 Total number of cores: 12 ? % of tissue involved: = Less than 5% of all tissue examined Periprostatic fat inv.: Not identified Seminal vesicle inv.: Not identified Perineural inv.: Not identified LVI: Not identified Laboratory investigations include 02/18 4.5, 07/20 4.0, 01/19 3.6, 07/21 3.9, 01/20 4.8, 06/21 3.5, 01/21 4.1 14% Imaging 04/24 - MRI PI-RADS 3 0.7 cc organ contained Genetics - 04/24 Prolaris multimodal therapy PFSH Medical History Hypercholesterolemia BPH (benign prostatic hyperplasia) Dupuytren's contracture of right hand GERD (gastroesophageal reflux disease) Hiatal hernia Acne C3 cervical fracture Social History (Updated 01/31/23 @ 12:04 by Raquel Ugarte MD) Housing: Apartment Alcohol intake: current Patient Tobacco Use Status: Former Tobacco user Quit Date: 8 years ago Tobacco use type: Cigarette Years Smoked: stopped 07/2014 (intermittent 17 year 4-5 cigarettes ) e-Cigarette/Vaping Use: Never Used Second Hand Smoke Exposure: No service: No Current occupational status: retired Cognitive needs: No Hearing needs: No Vision needs: Yes Review of Systems Const Denies chills and Denies fever(s) Card Reports no additional complaints and Denies syncope Resp Denies cough GI Denies abdominal pain and Denies heartburn Reports as per HPI and Denies change in libido Neuro Denies syncope Psych Denies change in libido Endo Denies change in libido Physical Exam Const General: cooperative, healthy appearing, comfortable and no acute distress Orientation/consciousness: patient oriented x3 HEENT Face and sinus: Yes normal facial exam Mouth: moist mucous membranes Neck Neck: Yes normal visual inspection, Yes full ROM and Yes trachea midline Chest Chest palpation & inspection: normal inspection of the chest Resp Effort & Inspection: normal respiratory effort, able to speak in complete sentences and no respiratory distress GI Inspection: Yes normal to inspection Back/Spine/Pelvis Cervical Spine: normal cervical lordosis Thoracic/Lumbar Spine: thoracic and lumbar spine normal to inspection Skin General skin exam: no rashes or lesions noted Neuro General: patient oriented x3, gait normal, tone normal and moves all extremities Extrem General: Yes normal to inspection and Yes capillary refill normal Office Procedures Post Void Residual Post Residual Void Post Void Residual (PVR): 0 [id number]-[id number] Void Residual by ultrasound Results AMB Urinalysis, Automated UA Leukoctes 0 Monalisa/uL Last Edit by EVANGELINA Cormier on 02/15/23 10:16 UA Nitrite Negative Last Edit by EVANGELINA Cormier on 02/15/23 10:16 UA Urobilinogen 0.2 mg/dL Last Edit by EVANGELINA Cormier on 02/15/23 10:16 UA Protein 0 mg/dL Last Edit by EVANGELINA Cormier on 02/15/23 10:16 UA pH 7.0 Last Edit by EVANGELINA Cormier on 02/15/23 10:16 UA Blood 0 Keaton/uL Last Edit by EVANGELINA Cormier on 02/15/23 10:16 UA Specific [place] 1.015 Last Edit by EVANGELINA Cormier on 02/15/23 10:16 UA Ketone Negative Last Edit by Jazz Soto, RMA on 02/15/23 10:16 UA Bilirubin 0 mg/dL Last Edit by Jazz Soto, RMA on 02/15/23 10:16 UA Glucose 0 mg/dL Last Edit by Jazz Soto, RMA on 02/15/23 10:16 Results Reviewed Results Reviewed: Laboratory Last Values Urine pH (Auto) 7.0 02/15/23 09:59 Specific [place] (Auto) 1.015 02/15/23 09:59 Urine Protein (Auto) 0 mg/dL 02/15/23 09:59 Glucose (UA)(Auto) 0 mg/dL 02/15/23 09:59 Urine Ketones (Auto) Negative 02/15/23 09:59 Urine Blood (Auto) 0 Keaton/uL 02/15/23 09:59 Urine Nitrite (Auto) Negative 02/15/23 09:59 Urine Bilirubin (Auto) 0 mg/dL 02/15/23 09:59 Urine Urobilinogen (Auto) 0.2 mg/dL 02/15/23 09:59 Leukocyte Esterase (Auto) 0 Monalisa/uL 02/15/23 09:59 Assessment & Plan Assessment & Plan (1) Prostate cancer: Comment: 03/23 unfavorable intermediate risk January 2022 treatment with EXBRT 09/22 Code(s): C61 - Malignant neoplasm of prostate Plan Four month follow-up lab Orders: Orders AMB Urinalysis Automated Today Z13.9 - Encounter for screening, unspecified Prostate Specific Antigen 4 Months C61 - Malignant neoplasm of prostate Testosterone, Total 4 Months C61 - Malignant neoplasm of prostate AMB Post Void Residual by ultrasound Today N40.0 - Benign prostatic hyperplasia without lower urinary tract symptoms Patient Instructions: Imaging studies, laboratory and physical exam results were discussed and reviewed in detail. No major barriers to patient understanding were identified. An opportunity to ask questions regarding the treatment plan was provided. All questions were answered. The patient expressed understanding and agreement with the above treatment plan. The patient is aware they should contact our office by phone for worsening of their current condition or the appearance of new urologic symptoms. Compliance is encouraged with any medications and followup testing that is ordered. It is a privilege to participate in the urologic care of your patient. If you have any questions or concerns regarding treatment for the above conditions, or other urologic issues, please do not hesitate to contact me. The office telephone contact is [phone]. This note is constructed using voice recognition software. While every effort has been made to ensure accuracy meat products demonstrator errors may have been included. Yours sincerely, Dr Mario Heredia MD, [facility] - Urology Providers of Expert, Compassionate Care for the Genitourinary System Coding Level of Care Code Est Pt Level 3 (18018) Diagnoses Prostate cancer C61 CPT Codes Post Residual Void - PVR CPT Code: 33466-Pqzs Void Residual by ultrasound ([id number])
== END 2023-02-15 10:53 | disposition home or self-care (01) ==
PROVIDERS: PCP Internal Medicine; Visit Provider Urology
DX: Z13.9 Encounter for screening, unspecified (principal); C61 Malignant neoplasm of prostate
CPT/HCPCS: 99213

== ENCOUNTER → 2023-02-15 09:46 | Outpatient (BNVA) | payer MEDICARE, SELFPAY | PROVIDERS: PCP Internal Medicine; Visit Provider Urology | DX: C61 Malignant neoplasm of prostate (principal) | CPT/HCPCS: 51798; 81003; 99212 ==

== ENCOUNTER 2023-05-08 14:26 | Outpatient (AMB) | payer MEDICARE, SELFPAY ==
[2023-05-08 14:27] VITALS: BP 138/80; PULSE 65; O2SAT 97; BMI 25.0
--- NOTE | 2023-05-08 14:27 | MHC.PC.OV ---
Vital Signs 05/08/23 14:27 Height 5 ft 9 in Weight 169 lb 0.2 oz BMI 25.0 BP 138/80 Blood Pressure Location Lt brachial Position Sitting Pulse 65 Pulse Source Pulse Oximeter Pulse Oximetry (%) 97 Oxygen Delivery Method Room Air Intake Visit Reasons: 3 month f/u Intake Note: Patient is here to follow up on 3 months Senior Financial Consultant Required: No Allergies No Known Allergies Allergy (Verified 05/08/23 14:28) Tobacco use date assessed: 05/08/23 Fall risk assessment: No Falls in past year Last assessed Fall Risk: 05/08/23 Dental Screening Dental Screen Date: 05/08/23 Did you have a dental visit in the last 12 months?: Yes Did you have a dental problem in the last 6 months where you did not have access to dental care?: No Was dental information given to patient?: Patient has dentist HPI 3 month f/u HPI Details 67-year-old male with a history of prostate cancer January 2022 hypercholesterolemia coming in for follow-up. Last seen for physical in January 2023. Patient had numbness of the feet and nerve conduction test requested. Patient's colonoscopy is up-to-date. Patient is followed up by the Urology lab work requested. has been told stopping finasterid mid year. seeing urology also [facility] Medical History Hypercholesterolemia BPH (benign prostatic hyperplasia) Dupuytren's contracture of right hand GERD (gastroesophageal reflux disease) Hiatal hernia Acne C3 cervical fracture Social History (Updated 01/31/23 @ 12:04 by Raquel Ugarte MD) Housing: Apartment Alcohol intake: current Patient Tobacco Use Status: Former Tobacco user Quit Date: 8 years ago Tobacco use type: Cigarette Years Smoked: stopped 07/2014 (intermittent 17 year 4-5 cigarettes ) e-Cigarette/Vaping Use: Never Used Second Hand Smoke Exposure: No service: No Current occupational status: retired Cognitive needs: No Hearing needs: No Vision needs: Yes Questionnaire PHQ-9 Over the last 2 weeks, how often have you been bothered by any of the following problems? 1. Little interest or pleasure in doing things: not at all 2. Feeling down, depressed, or hopeless: not at all 3. Trouble falling or staying asleep, or sleeping too much: not at all 4. Feeling tired or having little energy: not at all 5. Poor appetite or overeating: not at all 6. Feeling bad about yourself - or that you are a failure or have let yourself or your family down: not at all 7. Trouble concentrating on things, such as reading the newspaper or watching television: not at all 8. Moving or speaking so slowly that other people could have noticed. Or the opposite - being so fidgety or restless that you have been moving around a lot more than usual: not at all 9. Thoughts that you would be better off or of hurting yourself in some way: not at all Total score: 0 Depression Screening Interpretation: Negative Depression Screening Done: Yes Source: Developed by Drs. Harley Silver, Radha Morales, Christian Rodriguez and colleagues, with an educational richard from [employer]. Thrive Questionnaire Date Thrive assessed: 05/08/23 AUDIT C Alcohol Use Questionnaire (AUDIT-C) 1. How often do you have a drink containing alcohol?: 4 or more times a week 2. How many drinks containing alcohol do you have on a typical day when you are drinking?: 1 or 2 3. How often do you have six or more drinks on one occasion?: Never Total Score: 4 REE-7 AMB Questionnaire REE-7 Date REE - 7 assessed: 05/08/23 Source: Developed by Drs. Harley Silver, Radha Morales, Christian Rodriguez and colleagues, with an educational richard from [employer]. Physical exam (Primary Care) Vital Signs: Last Vital Signs Pulse 65 05/08/23 14:27 BP 138/80 05/08/23 14:27 Pulse Ox 97 05/08/23 14:27 Oxygen Delivery Method Room Air 05/08/23 14:27 BMI result Body Mass Index 25.0 Tobacco/Smoking Status: Tobacco use Status Tobacco use date assessed 05/08/23 05/08/23 14:28 Patient Tobacco Use Status Former Tobacco user 05/08/23 14:28 Tobacco use type Cigarette 05/08/23 14:28 e-Cigarette/Vaping Use Never Used 05/08/23 14:28 PHQ-9: PHQ-9 Score PHQ-9: Total score 0 05/08/23 14:45 Depression Screening Interpretation: Negative Thrive Assessment: Date of Thrive Assessment Date Thrive assessed 05/08/23 05/08/23 14:28 Const General: alert; No acute distress Eyes Conjunctivae: conjunctivae normal Resp Auscultation: clear to auscultation bilaterally Cardio Rate: regular rate Rhythm: regular rhythm GI Inspection: Yes normal to inspection Extrem General: Yes normal to inspection and No edema Immunizations tetanus-diphtheria toxoids-Td 2 Lf unit-2 Lf unit/0.5 mL IM suspension Performing Provider: Raquel Ugarte MD [facility] Administered by: EVANGELINA Winters on 05/08/23 14:58 Dose Route Admin Location Dispensed Lot Number Expiration Date [employer] Specialist 0.5 mL IM Left Deltoid 0.5 mL [id number] 08/06/23 [id number] [employer] VIS Given Date VIS Provided VIS Publication Date 05/08/23 Single Vaccine 20 Eligibility Eligibility Date Funding Source Not [facility] Eligible 05/08/23 [facility] Assessment and Plan Assessment & Plan (1) Prostate cancer: Comment: 03/23 unfavorable intermediate risk January 2022 treatment with EXBRT 09/22 Code(s): C61 - Malignant neoplasm of prostate Plan: Patient continues to follow-up with urology and blood work surveillance being done. (2) Numbness in feet: Code(s): R20.0 - Anesthesia of skin Plan: Discussed about nerve conduction test. (3) Hypercholesterolemia: Code(s): E78.00 - Pure hypercholesterolemia, unspecified Plan: Avoid fried foods, chicken skin, eggs, butter margarine, pastries and meat. Be it pork or beef they have a lot of cholesterol LDL goal of less than 130 and triglyceride of less than 150 Orders: Orders Td State Immunization Today Z23 - Encounter for immunization Coding Level of Care Code Est Pt Level 4 (35347) Diagnoses Prostate cancer C61 Numbness in feet R20.0 Hypercholesterolemia E78.00
== END 2023-05-08 15:06 | disposition home or self-care (01) ==
PROVIDERS: PCP Internal Medicine; Visit Provider Internal Medicine
DX: C61 Malignant neoplasm of prostate (principal); R20.0 Anesthesia of skin; E78.00 Pure hypercholesterolemia, unspecified; Z23 Encounter for immunization
CPT/HCPCS: 90471; 90714; 99214

== ENCOUNTER 2023-06-11 10:37 | Outpatient (REF) | payer MEDICARE, SELFPAY ==
[2023-06-11 12:39] LABS: Prostate Specific Antigen < 0.10 ng/mL (<0.05-4.0)
== END 2023-06-11 10:38 | disposition home or self-care (01) ==
LOC: HO.LAB 10:37
PROVIDERS: PCP Internal Medicine; Visit Provider Urology
DX: C61 Malignant neoplasm of prostate (principal); Z12.5 Encounter for screening for malignant neoplasm of prostate
CPT/HCPCS: 36415; 84153; 84403

== ENCOUNTER 2023-06-22 13:28 | Outpatient (AMB) | payer MEDICARE, SELFPAY ==
--- NOTE | 2023-06-22 13:28 | A.OFFVIS_ITS ---
Intake Intake Visit Reasons: 4M PSA/Testo(Labs?)Confirmed Intake Note: Patient presents today for follow up on PSA/Testo Meds- Finasteride Allergies to Antibiotic- No Known Allergies Blood Thinner- None Measurement Technician Required: No Allergies No Known Allergies Allergy (Verified 06/22/23 13:30) Medication List - Last Reconciled 06/22/23 by Mario Heredia MD cholecalciferol (vitamin D3) 25 mcg PO DAILY multivitamin 1 tab PO DAILY HPI HPI Comments History of Present Illness Details Florian is a very pleasant male. He is a patient of Dr. Morrison. He is seen for the following urologic conditions. - elevated PSA - BPH Telemedicine Evaluation 15 min Consultation [employer] attempted PSA 02/22 <0.1, T 43, 06/23 <0.1 Doing well 4 month follow-up lab work May stop finasteride Prostate Cancer 03/2322 Grade group 3, Low Volume 09/22 EXBRT with short-term 6 month GnRH - [facility] [address] George 20 fractions Diagnosed for PSA 4.1 Size at diagnosis 35 gm pT1c [place] score: 4+3=7 (right base lateral) 20% ; 3+3=6 (right mid lateral) 20% Tumor quantitation: ? Number cores positive: 2 Total number of cores: 12 ? % of tissue involved: = Less than 5% of all tissue examined Periprostatic fat inv.: Not identified Seminal vesicle inv.: Not identified Perineural inv.: Not identified LVI: Not identified Laboratory investigations include 02/18 4.5, 07/20 4.0, 01/19 3.6, 07/21 3.9, 01/20 4.8, 06/21 3.5, 01/21 4.1 14% Imaging 04/24 - MRI PI-RADS 3 0.7 cc organ contained Genetics - 04/24 Prolaris multimodal therapy PFSH Medical History Hypercholesterolemia BPH (benign prostatic hyperplasia) Dupuytren's contracture of right hand GERD (gastroesophageal reflux disease) Hiatal hernia Acne C3 cervical fracture Social History Housing: Apartment Alcohol intake: current Patient Tobacco Use Status: Former Tobacco user Quit Date: 8 years ago Tobacco use type: Cigarette Years Smoked: stopped 07/2014 (intermittent 17 year 4-5 cigarettes ) e-Cigarette/Vaping Use: Never Used Second Hand Smoke Exposure: No service: No Current occupational status: retired Cognitive needs: No Hearing needs: No Vision needs: Yes Review of Systems Const All systems reviewed & are unremarkable except as noted in HPI and below Reports no additional complaints Resp Reports no additional complaints GI Reports no additional complaints Reports as per HPI Musc Reports no additional complaints Physical Exam Telemedicine evaluation Appropriate responses Regular breathing rate and rhythm HEENT Head: Yes normal to inspection Ears: hearing grossly normal bilaterally Eyes General: appearance normal, both eyes and all related structures Neck Neck: Yes normal visual inspection Chest Chest palpation & inspection: normal inspection of the chest Resp Effort & Inspection: normal respiratory effort and able to speak in complete sentences Assessment & Plan Assessment & Plan (1) Prostate cancer: Comment: 03/23 unfavorable intermediate risk January 2022 treatment with EXBRT 09/22 Code(s): C61 - Malignant neoplasm of prostate Plan Four month follow-up PSA Orders: Orders Prostate Specific Antigen 4 Months C61 - Malignant neoplasm of prostate Testosterone, Total 4 Months C61 - Malignant neoplasm of prostate Medications: Discontinued finasteride Discontinued Reason: Doctor's Order 5 mg PO DAILY 90 tabs 1RF 90 days N13.8 - Other obstructive and reflux uropathy, N40.0 - Benign prostatic hyperplasia without lower urinary tract symptoms, N40.1 - Benign prostatic hyperplasia with lower urinary tract symptoms, R33.9 - Retention of urine, unspecified Patient Instructions: Imaging studies, laboratory and physical exam results were discussed and reviewed in detail. No major barriers to patient understanding were identified. An opportunity to ask questions regarding the treatment plan was provided. All questions were answered. The patient expressed understanding and agreement with the above treatment plan. The patient is aware they should contact our office by phone for worsening of their current condition or the appearance of new urologic symptoms. Compliance is encouraged with any medications and followup testing that is ordered. It is a privilege to participate in the urologic care of your patient. If you have any questions or concerns regarding treatment for the above conditions, or other urologic issues, please do not hesitate to contact me. The office telephone contact is [phone]. This note is constructed using voice recognition software. While every effort has been made to ensure accuracy rigging slinger errors may have been included. Yours sincerely, Dr Mario Heredia MD, [facility] - Urology Providers of Expert, Compassionate Care for the Genitourinary System Telehealth Telehealth Location of provider rendering services: practice address Location of patient: address on file Patient Identification confirmed using: Name, : Yes Telehealth method: video Patient verbally consented to treatment: Yes Patient verbally consented to billing insurance company: Yes Patient informed of any privacy concerns related to visit: Yes Coding Level of Care Code Tele Est Pt Level 3 (13422) Diagnoses Prostate cancer C61
== END 2023-06-22 14:11 | disposition home or self-care (01) ==
LOC: HO.HUSH 13:28
PROVIDERS: PCP Internal Medicine; Visit Provider Urology
DX: C61 Malignant neoplasm of prostate (principal)
CPT/HCPCS: 99213

== ENCOUNTER → 2023-06-22 13:28 | Outpatient (BNVA) | payer MEDICARE, SELFPAY | PROVIDERS: PCP Internal Medicine; Visit Provider Urology ==

== ENCOUNTER 2023-10-26 10:43 | Outpatient (AMB) | payer MEDICARE, SELFPAY ==
[2023-10-26 10:54] VITALS: BP 140/82; PULSE 64; O2SAT 100; BMI 24.4
--- NOTE | 2023-10-26 10:54 | MHC.PC.OV ---
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 Patient was placed on left thumb splint PFS Medical History Hypercholesterolemia BPH (benign prostatic hyperplasia) Dupuytren's contracture of right hand GERD (gastroesophageal reflux disease) Hiatal hernia Acne C3 cervical fracture Social History Housing: Apartment Alcohol intake: current Patient Tobacco Use Status: Former Tobacco user Tobacco use type: Cigarette Years Smoked: stopped 07/2014 (intermittent 17 year 4-5 cigarettes ) e-Cigarette/Vaping Use: Never Used Second Hand Smoke Exposure: No service: No Current occupational status: retired Cognitive needs: No Hearing needs: No Vision needs: Yes Questionnaire Thrive Questionnaire Date Thrive assessed: 05/08/23 AUDIT C Alcohol Use Questionnaire (AUDIT-C) 1. How often do you have a drink containing alcohol?: 4 or more times a week 2. How many drinks containing alcohol do you have on a typical day when you are drinking?: 1 or 2 3. How often do you have six or more drinks on one occasion?: Never Total Score: 4 REE-7 AMB Questionnaire REE-7 Date REE - 7 assessed: 05/08/23 Source: Developed by Drs. Harley Silver, Radha Morales, Christian Rodriguez and colleagues, with an educational richard from [employer] Physical exam (Primary Care) Vital Signs: Last Vital Signs Pulse 64 10/26/23 10:54 BP 140/82 H 10/26/23 10:54 Pulse Ox 100 10/26/23 10:54 Oxygen Delivery Method Room Air 10/26/23 10:54 BMI result Body Mass Index 24.4 Tobacco/Smoking Status: Tobacco use Status Tobacco use date assessed 05/08/23 10/26/23 10:55 Patient Tobacco Use Status Former Tobacco user 10/26/23 10:55 Tobacco use type Cigarette 10/26/23 10:55 e-Cigarette/Vaping Use Never Used 10/26/23 10:55 Thrive Assessment: Date of Thrive Assessment Date Thrive assessed 05/08/23 10/26/23 10:55 Extrem Other: Noted left thumb on a splint Assessment and Plan Assessment & Plan (1) Pain of left thumb: Code(s): M79.645 - Pain in left finger(s) Plan: . Patient was told dislocated left thumb and advised to get orthopedic referral. Called ortho for scheduling but they need the record. Patient states he has the record and so will obtain the record and fax it to ortho in order for us to get an urgent schedule. Orders: Referrals Orthopedics Referral M79.645 - Pain in left finger(s) Coding Level of Care Code Est Pt Level 3 (05668) Diagnoses Pain of left thumb M79.645
== END 2023-10-26 12:03 | disposition home or self-care (01) ==
PROVIDERS: PCP Internal Medicine; Visit Provider Internal Medicine
DX: M79.645 Pain in left finger(s) (principal)
CPT/HCPCS: 99213

== ENCOUNTER 2023-11-02 06:40 | Outpatient (REF) | payer MEDICARE, SELFPAY ==
--- NOTE | ~2023-11-02 | XR_ITS ---
EXAMINATION: XR HAND, LEFT CLINICAL INFORMATION: Pain right thumb and hand. COMPARISON: None available. TECHNIQUE: PA, lateral, and oblique views of the left hand. FINDINGS: Radiopaque marker placed by technologist to indicate the area of concern as indicated by the patient along the first metacarpophalangeal joint. Moderate degenerative changes with joint space narrowing at the first metacarpophalangeal joint. Moderate degenerative changes in the first carpometacarpal joint with joint space narrowing and hypertrophic change. Ulnar minus variance. Moderate degenerative changes with hypertrophic change and multiple IP joints, most notable in the second digit. Small rounded calcification in the soft tissues along the distal aspect of the shaft of the fourth metacarpal. XR/XR hand LT min 3V IMPRESSION: 1. Moderate degenerative changes first metacarpophalangeal joint. 2. Moderate degenerative changes first carpometacarpal joint. 3. Moderate degenerative changes multiple IP joints, most notable in the second digit. 4. Recommend follow-up imaging in 10-14 days if fracture is suspected.
== END 2023-11-02 06:41 | disposition home or self-care (01) ==
LOC: HO.HOSX 06:40
DX: Z13.89 Encounter for screening for other disorder (principal)
CPT/HCPCS: 73130; 99202

== ENCOUNTER 2023-11-02 08:41 | Outpatient (AMB) | payer MEDICARE, SELFPAY ==
--- NOTE | 2023-11-02 08:46 | A.OFFVIS_ITS ---
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 Patient reports that on 10/25/23 he was walking the dog when another dog came after him and his dog, he parted the fight and fell landing on his left hand. He was seen at an urgent care clinic, xrays obtained showing a partial subluxation. He was placed in a metal finger splint. Patient reports that he is doing well in regards to pain. He has increased pain when he tries to electronic warfare technical something or his he bumps it. Denies numbness and tingling. 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 The patient reports that, on that date, he was out walking his dog, when his neighbor's dog got off of his leash and began to attack his dog. At this point, the patient reports that he jumped at the other dog in order to get it away from his, and while he does not recall what happened while he was on the ground, when he got up he reported that he began to experience significant pain and discomfort in his left thumb. Patient was previously evaluated at an urgent care the day after injury, where he was told that he had a dislocated thumb and should follow up with his primary care. Primary care then referred him to Orthopedics. Patient has been in a silver finger splint on his left thumb since evaluation in the urgent care. The patient reports that pain is localized at the MCP joint of the left thumb, and then he feels intense pain whenever he attempts to abduct the thumb or to oppose his thumb to his other fingers. Patient reports no numbness or tingling in his left hand. No other acute complaints or concerns at this time. [facility] Medical History Hypercholesterolemia BPH (benign prostatic hyperplasia) Dupuytren's contracture of right hand GERD (gastroesophageal reflux disease) Hiatal hernia Acne C3 cervical fracture Social History Housing: Apartment Alcohol intake: current Patient Tobacco Use Status: Former Tobacco user Tobacco use type: Cigarette Years Smoked: stopped 07/2014 (intermittent 17 year 4-5 cigarettes ) e-Cigarette/Vaping Use: Never Used Second Hand Smoke Exposure: No service: No Current occupational status: retired Cognitive needs: No Hearing needs: No Vision needs: Yes Review of Systems Const All systems reviewed & are unremarkable except as noted in HPI and below Physical Exam Vital Signs: BMI result Body Mass Index 23.9 Extrem Other: Patient is alert, oriented, and in no acute distress. Neuro: Median, ulnar, radial nerves motor and sensory intact and sensation is normal to the tips of all digits. Vascular: Cap refill brisk Pain: Patient reports tenderness to palpation about the MCP joint of his left thumb. No other tenderness to palpation of the hand noted Patient reports pain with attempted opposition of the left thumb to other fingers, as well as with abduction and flexion ROM: Active range of motion of the left thumb significantly limited due to pain Patient is unable to flex at the MCP joint, only at the IP joint No good endpoint noted with testing of the UCL of the left thumb, when compared to the radial collateral ligament Skin: No lacerations or abrasions. General: Significant edema and visible and palpable deformity about the MCP joint of the left thumb No ecchymosis, erythema, or evidence of infection. Psych: Appears grossly normal Affect normal Attitude cooperative Results Reviewed Results Reviewed: X-rays obtained in the office today and independently reviewed by , Umang Sutton PA-C, as well as Dr. Skye Castillo MD, demonstrate irregularities at the trapezio-metacarpal joint and the MCP joints of the left thumb, concerning for potential dislocation. Assessment & Plan Assessment & Plan (1) Pain of left thumb: Code(s): M79.645 - Pain in left finger(s) Category: Medical Plan 1. Pain of left thumb After consultation and discussion with Dr. Castillo, who was not available in the office to see the patient at this time but did look at x-rays, a joint treatment plan was formed: X-rays do not adequately demonstrate trapezium, trapezial metacarpal joint, and MCP joint all enough to definitively diagnose patient's condition Therefore, stat CT scan is ordered in order to assess bone and joint alignment in the left thumb After CT scan is obtained and results are in put it, patient will follow-up with Dr. Castillo in the office on Sunday to discuss definitive treatment plan Patient is informed that there is concern for ligamentous injury, particularly the UCL, in the left thumb due to ligamentous laxity demonstrated on exam Patient is amenable to this plan Patient will follow-up on Sunday after CT scan with Dr. Castillo, sooner with any acute concerns Orders: Orders CT hand LT wo IV con Today M79.645 - Pain in left finger(s) Coding Level of Care Code New Pt Level 3 (18796) Diagnoses Pain of left thumb M79.644
[2023-11-02 08:55] VITALS: BMI 23.9
== END 2023-11-02 09:34 | disposition home or self-care (01) ==
PROVIDERS: PCP Internal Medicine
DX: M79.645 Pain in left finger(s) (principal)
CPT/HCPCS: 99203

== ENCOUNTER 2023-11-02 09:41 | Outpatient (REF) | payer MEDICARE, SELFPAY ==
--- NOTE | ~2023-11-02 | CT_ITS ---
EXAMINATION: CT scan of the left hand without contrast. CLINICAL INFORMATION: Pain in the right hand attention thumb. Concern for dislocation of the trapezium MCP joint COMPARISON: X-ray the left hand performed same day TECHNIQUE: CT scan left hand is performed with reconstruction imaging performed at the acquisition workstation. FINDINGS: First carpometacarpal joint: There is nonuniform up to severe joint space narrowing of the first carpometacarpal joint along with subchondral cystic change. There is some capsular calcification also present versus small loose bodies. Findings indicative of moderate osteoarthritis. No fracture. The remaining bone and joints in the wrist are normal. First metacarpophalangeal joint: there is minimal enthesopathic cyst. There is minimal volar subluxation of the proximal phalanx with respect to the metacarpal head no fracture. The remaining bone and joints are normal. Soft tissues unremarkable. CT/CT hand LT wo IV con IMPRESSION: 1. No fracture. 2. Moderate osteoarthritis of the first carpometacarpal joint. No dislocation 3. Minimal volar subluxation of the proximal phalanx of the first metacarpophalangeal joint. No fracture. No dislocation
== END 2023-11-02 09:42 | disposition home or self-care (01) ==
LOC: HO.CT 09:41
PROVIDERS: PCP Internal Medicine
DX: M79.645 Pain in left finger(s) (principal)
CPT/HCPCS: 73130; 73200; 99202

== ENCOUNTER 2023-11-06 12:27 | Outpatient (AMB) | payer MEDICARE, SELFPAY ==
--- NOTE | 2023-11-06 12:30 | A.OFFVIS_ITS ---
Vital Signs 11/06/23 12:41 Height 5 ft 9 in Weight 162 lb BMI 23.9 Intake Visit Reasons: OV, follow up CT review Intake Note: Florian is a 68 yo male who presents today for Left hand CT review. Patient reports his left thumb continues to bother him although the swelling has gone down. He states the finger splint he is wearing takes the pain away but because his finger is dislocated, it gets very painful when he removes the splint. He takes Ibuprofen PRN for pain with relief. Allergies No Known Allergies Allergy (Verified 11/06/23 12:43) HPI HPI OV, follow up CT review: Details: Florian is a 68 year old right hand dominant man who presents for a CT scan review of his left thumb pain, S/P dog attack, DOI: 10/25/23. He says he was not bitten by the dog, but he dove to the ground and his thumb was injured when trying to separate his dog from the attacker. He is unsure how exactly he injured his thumb. He complains of pain in his thumb, which occurs primarily when he removes his splint or when trying to flex his thumb. He does say his swelling has improved since his last appointment. He denies any numbness or tingling. He says he is retired. He remains active with lightweight activities and exercises, including the use of small weights. He has been struggling to grab even a water bottle without pain. [facility] Medical History Hypercholesterolemia BPH (benign prostatic hyperplasia) Dupuytren's contracture of right hand GERD (gastroesophageal reflux disease) Hiatal hernia Acne C3 cervical fracture Social History (Reviewed 06/22/23 @ 13:30 by Tanja Rivera [facility]) Housing: Apartment Alcohol intake: current Patient Tobacco Use Status: Former Tobacco user Tobacco use type: Cigarette Years Smoked: stopped 07/2014 (intermittent 17 year 4-5 cigarettes ) e-Cigarette/Vaping Use: Never Used Second Hand Smoke Exposure: No service: No Current occupational status: retired Cognitive needs: No Hearing needs: No Vision needs: Yes Review of Systems Const All systems reviewed & are unremarkable except as noted in HPI and below Physical Exam Vital Signs: BMI result Body Mass Index 23.9 Const General: cooperative, healthy appearing and no acute distress Orientation/consciousness: patient oriented x3 HEENT Head: Yes normocephalic and Yes atraumatic Eyes EOM: EOMs intact bilaterally Resp Effort & Inspection: normal respiratory effort and able to speak in complete sentences Cardio Jugular venous distension: no JVD Skin General skin exam: turgor normal Rashes: no rashes Neuro General: patient oriented x3 Extrem Other: Evaluation of Left Upper Extremity: The patient is alert, oriented, and in no acute distress Neuro: Median, Ulnar, Radial nerves motor and sensory intact and sensation is normal to the tips of all digits Vascular: Cap refill brisk ROM: He can bring his fingers closed to a fist and back into extension He can flex his thumb at the IP and MCP joints. No locking or catching Smooth circumduction at the basal joint. Smooth & painless wrist ROM Good RCL , pain with testing of the left thumb MCP joint ulnar collateral ligament but he has a good end point and no increased laxity when compared with the opposite thumb Skin: No lacerations or abrasions. General: No Ecchymosis. No Erythema or evidence of infection. Radiographs: 3 views of the right hand from 11/02/23 were reviewed by me today in clinic. They show no fractures or dislocations. There is basal joint osteoarthritis with joint space narrowing, subchondral sclerosis, and joint space narrowing. There is also some evidence of arthritis in the MCP joint with joint space narrowing and some mild volar subluxation. CT/CT hand LT wo IV con IMPRESSION: 1. No fracture. 2. Moderate osteoarthritis of the first carpometacarpal joint. No dislocation 3. Minimal volar subluxation of the proximal phalanx of the first metacarpophalangeal joint. No fracture. No dislocation Dictated By: Christophe Ho MD 11/02/23 Psych Appearance: grossly normal Affect: normal affect Attitude: cooperative Assessment & Plan Assessment & Plan (1) Sprain of ulnar collateral ligament of metacarpophalangeal (MCP) joint of left thumb: Code(s): S63.642A - Sprain of metacarpophalangeal joint of left thumb, initial encounter Category: Medical (2) Arthritis of carpometacarpal (CMC) joint of left thumb: Code(s): M18.12 - Unilateral primary osteoarthritis of first carpometacarpal joint, left hand Category: Medical Plan Assessment & plan: 1. Left thumb MCP joint UCL sprain Without instability S/P dog attack, DOI: 10/25/23 2. Left basal joint osteoarthritis I educated him about this condition I discussed operative and non-operative treatment options I recommend we manage this non-operatively, and he is in agreement I referred him to OT hand therapy to have them make a thermal-molded thumb spica splint for him to wear for the next 4 weeks. He can remove his splint when at rest, to shower, or when sleeping. He will also work on ROM exercises with OT. He will remove his splint to work on gentle ROM exercises at home I discussed activity modification, he is to lift nothing heavy for at least the next 4 weeks He is to avoid any gripping, grasping, or pinching activities involving his thumb for at least the next 4 weeks He will follow up in 4-6 weeks to see how he is doing, with [place] [employer] Scribed for Skye Castillo MD by Hany Gamez, medical staff credentialing coordinator, on 11/06/23 at 12:55 PM, EST. Orders: Orders OT Evaluation and Treatment Today S63.642A - Sprain of metacarpophalangeal joint of left thumb, initial encounter Coding Level of Care Code Est Pt Level 4 (60865) Diagnoses Sprain of ulnar collateral ligament of metacarpophalangeal (MCP) joint of left thumb S63.642A Arthritis of carpometacarpal (CMC) joint of left thumb M18.12
[2023-11-06 12:41] VITALS: BMI 23.9
== END 2023-11-06 13:39 | disposition home or self-care (01) ==
PROVIDERS: PCP Internal Medicine; Visit Provider Orthopaedic Surgery
DX: S63.642A Sprain of metacarpophalangeal joint of left thumb, initial encounter (principal); M18.12 Unilateral primary osteoarthritis of first carpometacarpal joint, left hand
CPT/HCPCS: 99214

== ENCOUNTER → 2023-11-06 12:27 | Outpatient (BNVA) | payer MEDICARE, SELFPAY | PROVIDERS: PCP Internal Medicine; Visit Provider Orthopaedic Surgery | DX: S63.642A Sprain of metacarpophalangeal joint of left thumb, initial encounter (principal); M18.12 Unilateral primary osteoarthritis of first carpometacarpal joint, left hand; X58.XXXA Exposure to other specified factors, initial encounter; Y93.9 Activity, unspecified; Y92.9 Unspecified place or not applicable; Y99.9 Unspecified external cause status | CPT/HCPCS: 99212 ==

== ENCOUNTER 2023-11-06 13:46 | Outpatient (RCR) | payer MEDICARE, SELFPAY | END 2023-11-06 15:18 | disposition home or self-care (01) | LOC: HO.OT 13:46 | PROVIDERS: Visit Provider Orthopaedic Surgery | DX: S63.642D Sprain of metacarpophalangeal joint of left thumb, subsequent encounter (principal) | CPT/HCPCS: 29130; 97165 ==

== ENCOUNTER 2023-11-22 06:44 | Outpatient (REF) | payer MEDICARE, SELFPAY ==
[2023-11-22 07:47] LABS: Prostate Specific Antigen 1.14 ng/mL (<0.05-4.0)
[2023-11-27 13:13] LABS: Testosterone, Total 848 ng/dL (250-1100)
== END 2023-11-22 06:45 | disposition home or self-care (01) ==
LOC: HO.LAB 06:44
PROVIDERS: PCP Internal Medicine; Visit Provider Urology
DX: C61 Malignant neoplasm of prostate (principal); Z12.5 Encounter for screening for malignant neoplasm of prostate
CPT/HCPCS: 36415; 84153; 84403

== ENCOUNTER 2023-11-29 08:42 | Outpatient (AMB) | payer MEDICARE, SELFPAY ==
--- NOTE | 2023-11-29 08:55 | A.OFFVIS_ITS ---
Intake Visit Reasons: 4M PSA/Testo(Pending) Intake Note: Patient is Present for Follow Up Labs Urology Medication: None- Last visit finasteride was D/C Antibiotic Allergies: None Blood Thinners: None Guideman Required: No Accompanied by: Self / Same As Patient Allergies No Known Allergies Allergy (Verified 11/29/23 09:05) HPI Comments Details: Florian is a very pleasant male. He is a patient of Dr. Morrison. He is seen for the following urologic conditions. - elevated PSA - lower urinary tract symptoms - prostate cancer PSA 02/22 <0.1 T 43, 06/23 <0.1, 11/23 1.2 T 850 Slight rise in PSA Review in 4 months Otherwise doing well. Good urinary control. Nocturia x1. Minimal oz during the day. Testosterone fully recovered Energy normal and walking 10,000 steps a day Prostate Cancer 03/2322 Grade group 3, Low Volume 09/22 EXBRT with short-term 6 month GnRH - [facility] [place] [address] George 20 fractions Diagnosed for PSA 4.1 Size at diagnosis 35 gm pT1c Monisha score: 4+3=7 (right base lateral) 20% ; 3+3=6 (right mid lateral) 20% Tumor quantitation: Number cores positive: 2 Total number of cores: 12 ? % of tissue involved: = Less than 5% of all tissue examined Periprostatic fat inv.: Not identified Seminal vesicle inv.: Not identified Perineural inv.: Not identified LVI: Not identified Laboratory investigations include 02/18 4.5, 07/20 4.0, 01/19 3.6, 07/21 3.9, 01/20 4.8, 06/21 3.5, 01/21 4.1 14% Imaging 04/24 - MRI PI-RADS 3 0.7 cc organ contained Genetics - 04/24 Prolaris multimodal therapy [facility] Medical History Hypercholesterolemia BPH (benign prostatic hyperplasia) Dupuytren's contracture of right hand GERD (gastroesophageal reflux disease) Hiatal hernia Acne C3 cervical fracture Social History Housing: Apartment Alcohol intake: current Patient Tobacco Use Status: Former Tobacco user Tobacco use type: Cigarette Years Smoked: stopped 07/2014 (intermittent 17 year 4-5 cigarettes ) e-Cigarette/Vaping Use: Never Used Second Hand Smoke Exposure: No service: No Current occupational status: retired Cognitive needs: No Hearing needs: No Vision needs: Yes Review of Systems Const Denies chills and Denies fever(s) Card Reports no additional complaints and Denies syncope Resp Denies cough GI Denies abdominal pain and Denies heartburn Reports as per HPI and Denies change in libido Neuro Denies syncope Psych Denies change in libido Endo Denies change in libido Physical Exam Const General: cooperative, healthy appearing, comfortable and no acute distress Orientation/consciousness: patient oriented x3 HEENT Face and sinus: Yes normal facial exam Mouth: moist mucous membranes Neck Neck: Yes normal visual inspection, Yes full ROM and Yes trachea midline Chest Chest palpation & inspection: normal inspection of the chest Resp Effort & Inspection: normal respiratory effort, able to speak in complete sentences and no respiratory distress GI Inspection: Yes normal to inspection Back/Spine/Pelvis Cervical Spine: normal cervical lordosis Thoracic/Lumbar Spine: thoracic and lumbar spine normal to inspection Skin General skin exam: no rashes or lesions noted Neuro General: patient oriented x3, gait normal, tone normal and moves all extremities Extrem General: Yes normal to inspection and Yes capillary refill normal Assessment & Plan Assessment & Plan (1) Prostate cancer: Comment: 03/23 unfavorable intermediate risk January 2022 treatment with EXBRT 09/22 Code(s): C61 - Malignant neoplasm of prostate Category: Medical Plan Four month follow-up Orders: Orders Prostate Specific Antigen 4 Months C61 - Malignant neoplasm of prostate Patient Instructions: Imaging studies, laboratory and physical exam results were discussed and reviewed in detail. No major barriers to patient understanding were identified. An opportunity to ask questions regarding the treatment plan was provided. All questions were answered. The patient expressed understanding and agreement with the above treatment plan. The patient is aware they should contact our office by phone for worsening of their current condition or the appearance of new urologic symptoms. Compliance is encouraged with any medications and followup testing that is ordered. It is a privilege to participate in the urologic care of your patient. If you have any questions or concerns regarding treatment for the above conditions, or other urologic issues, please do not hesitate to contact me. The office telephone contact is [phone]. This note is constructed using voice recognition software. While every effort has been made to ensure accuracy forensics team director errors may have been included. Yours sincerely, Dr Mario Heredia MD, [facility] - Urology Providers of Expert, Compassionate Care for the Genitourinary System Coding Level of Care Code Est Pt Level 3 (73378) Diagnoses Prostate cancer C61
== END 2023-11-29 09:30 | disposition home or self-care (01) ==
PROVIDERS: PCP Internal Medicine; Visit Provider Urology
DX: C61 Malignant neoplasm of prostate (principal)
CPT/HCPCS: 99213

== ENCOUNTER → 2023-11-29 08:42 | Outpatient (BNVA) | payer MEDICARE, SELFPAY | PROVIDERS: PCP Internal Medicine; Visit Provider Urology | DX: C61 Malignant neoplasm of prostate (principal) | CPT/HCPCS: 99212 ==

== ENCOUNTER 2023-12-11 12:59 | Outpatient (AMB) | payer MEDICARE, SELFPAY ==
--- NOTE | 2023-12-11 13:17 | MHC.OFFVIS ---
Vital Signs 12/11/23 13:18 Handedness Right Intake Visit Reasons: Sprain of metacarpophalangeal left thumb Intake Note: Kathy is a 68 year old right hand male who presents today for a follow up visit for his left thumb MCP sprain of ulnar collateral ligament S/P dog attack, DOI: 10/25/2023 and arthritis of left thumb CMC joint. Patient reports he never had OT due to them never calling them, says he was not aware he had to do OT. He did see OT for thermal molded thumb spica, he says the brace is helping keep his thumb stable and not doing movements that would hurt his thumb. He says most of the time he has been trying not to lift heavy objects but he is very active so he has and this resulted in pain. He continues to feel slight numbness in the left thumb, his ROM has improved he says. He says it is much better just not 100%. 5-6 out of 10 pain on occasions. His concern today is if his thumb will continue to get better. Allergies No Known Allergies Allergy (Verified 12/11/23 13:18) HPI HPI Sprain of metacarpophalangeal left thumb: Details: Patient is a 68-year-old male who presents for follow-up evaluation of sprain of UCL left thumb, date of injury 10/25/2023. Today, the patient reports that he is feeling much better, but he has not attended OT, as he was never called for an appointment. The patient does report that he is still experiencing some mild discomfort in his thumb, but his range of motion has improved significantly. The patient reports that his biggest complaint is diminished strength in his left thumb and hand. The patient reports that he has been wearing his thermal molded splint most of the time, including to sleep, as he felt he injured his thumb once while sleeping. Patient inquires if there is anything he can do to increase his strength. No other acute complaints or concerns at this time. FORMERLY [facility] Medical History Hypercholesterolemia BPH (benign prostatic hyperplasia) Dupuytren's contracture of right hand GERD (gastroesophageal reflux disease) Hiatal hernia Acne C3 cervical fracture Social History (Updated 12/11/23 @ 13:19 by ROSMERY Benjamin) Housing: Apartment Alcohol intake: current Patient Tobacco Use Status: Former Tobacco user Tobacco use type: Cigarette Years Smoked: stopped 07/2014 (intermittent 17 year 4-5 cigarettes ) e-Cigarette/Vaping Use: Never Used Second Hand Smoke Exposure: No service: No Current occupational status: retired Current occupation: right hand dominant Cognitive needs: No Hearing needs: No Vision needs: Yes Physical Exam Extrem Other: Patient is alert, oriented, and in no acute distress. Neuro: Patient reports normal sensation to the tips of all digits of the R hand Vascular: Cap refill brisk Pain: Patient reports a sensation in the base of the R thumb with palpation, but it is not pain No pain with ROM of the R thumb ROM: Patient is able to make a closed fist Skin: No lacerations or abrasions. General: No ecchymosis, erythema, or evidence of infection. Psych: Appears grossly normal Affect normal Attitude cooperative Assessment & Plan Assessment & Plan (1) Sprain of ulnar collateral ligament of metacarpophalangeal (MCP) joint of left thumb: Code(s): S63.642A - Sprain of metacarpophalangeal joint of left thumb, initial encounter Category: Medical (2) Arthritis of carpometacarpal (CMC) joint of left thumb: Code(s): M18.12 - Unilateral primary osteoarthritis of first carpometacarpal joint, left hand Category: Medical Plan 1. Sprain of UCL of L thumb DOI 10/25/23 Patient appears to be recovering well from his injury, and is educated about the typical recovery course Patient is sent to OT today to help with strengthening and range of motion of the left thumb Patient is also informed that he can start to slowly wean out of the thermal molded splint, but that he should still wear it for daytime activities, but should not be wearing it while at rest or bathing Patient is amenable to this plan Patient will follow-up in 4-6 weeks for repeat assessment, sooner with any acute concerns Orders: Orders OT Evaluation and Treatment Today M18.12 - Unilateral primary osteoarthritis of first carpometacarpal joint, left hand, S63.642A - Sprain of metacarpophalangeal joint of left thumb, initial encounter Coding Level of Care Code Est Pt Level 3 (46162) Diagnoses Sprain of ulnar collateral ligament of metacarpophalangeal (MCP) joint of left thumb S63.642A Arthritis of carpometacarpal (CMC) joint of left thumb M18.12
== END 2023-12-11 13:48 | disposition home or self-care (01) ==
DX: S63.642A Sprain of metacarpophalangeal joint of left thumb, initial encounter (principal); M18.12 Unilateral primary osteoarthritis of first carpometacarpal joint, left hand
CPT/HCPCS: 99213

== ENCOUNTER → 2023-12-11 12:59 | Outpatient (BNVA) | payer MEDICARE, SELFPAY | DX: S63.642D Sprain of metacarpophalangeal joint of left thumb, subsequent encounter (principal); M18.12 Unilateral primary osteoarthritis of first carpometacarpal joint, left hand | CPT/HCPCS: 99212 ==

== ENCOUNTER 2024-01-01 15:30 | Outpatient (RCR) | payer MEDICARE, SELFPAY ==
--- NOTE | 2023-12-20 14:29 | MHC.OT.EP ---
[address] [phone] Occupational Therapy Plan of Care Patient Name: Florian Medel Date of Evaluation: 12/20/23 Diagnosis: Pain Location: 6/ w/ certain movements Pain Score: 1 Pain Scale Used: Numeric (0 - 10) Aggravating Factors: pressure against MP J Alleviating Factors: at rest Assessment: Pt is a 68 yr, old R hand dominant male who injured his L thumb on 10/24 while walking his dog. [place] [facility] [place] diagnosed w/ a UCL sprain/strain. He had a thumb spica orthoses fabricated here at [facility] [place]. He reports the orthoses has helped to decrease pain and increase healing. He most recently had a follow up w/ PA who referred him to skilled OT therapy to increase strength, pain free ROM, and functional use of his L hand Frequency and Duration: The patient will be seen 1x a week for 4 weeks Short Term Goals: SEE BELOW Fpc Goals: Pt will deny pain w/ opening a water bottle Pt will increase his L lateral pinch to 14 lbs pain free Pt will be complaint w/ his HEP Pt will report 2/10 pain w/wrist rotation / UD/RD Treatment Plan: Therapeutic Exercise Therapeutic Activity Home Exercise Program Patient Education ADL Training Ultrasound Paraffin Fluidotherapy MHP Joint Mobilization Soft Tissue Mobilization Kinesiotaping Electronically Signed By: Renae Montemayor OTR/L Please Sign and return to therapist. Thank you once again for your referral.
== END 2024-07-18 14:47 | disposition home or self-care (01) ==
LOC: HO.OT 15:30
PROVIDERS: PCP Internal Medicine
DX: S63.642D Sprain of metacarpophalangeal joint of left thumb, subsequent encounter (principal); M18.12 Unilateral primary osteoarthritis of first carpometacarpal joint, left hand
CPT/HCPCS: 97110; 97140; 97165

== ENCOUNTER 2024-02-05 14:44 | Outpatient (AMB) | payer MEDICARE, SELFPAY ==
[2024-02-05 15:11] VITALS: BP 136/80; PULSE 66; O2SAT 98; BMI 24.4
--- NOTE | 2024-02-05 15:11 | A.OFFPC_ITS ---
Vital Signs 02/05/24 15:11 Height 5 ft 9 in Weight 165 lb BMI 24.4 BP 136/80 Blood Pressure Location Lt brachial Position Sitting Pulse 66 Pulse Source Pulse Oximeter Pulse Oximetry (%) 98 Oxygen Delivery Method Room Air Intake Visit Reasons: PE- see comm Manager Fleet Required: No Accompanied by: Self / Same As Patient Allergies No Known Allergies Allergy (Verified 02/05/24 15:12) Medication List - Last Reconciled 02/05/24 by Raquel Ugarte MD cholecalciferol (vitamin D3) 25 mcg PO DAILY ibuprofen 400 mg PO Q8H PRN multivitamin 1 tab PO DAILY Tobacco use date assessed: 05/08/23 Fall risk assessment: No Falls in past year Last assessed Fall Risk: 02/05/24 Dental Screening Dental Screen Date: 05/08/23 HPI PE- see comm HPI Details 68-year-old male with hypercholesterolem ia prostate cancer coming in for physical exam last seen for pain on the left thumb 10/20/2023. Patient's colonoscopy last done in 2015. Patient was seen by orthopedics diagnosis of s prain of the metacarpophalangeal left thumb CT scan done November 2023 No fracture. 2. Moderate osteoarthritis of the first carpometacarpal joint. No dislocation 3. Minimal volar subluxation of the pro ximal phalanx of the first metacarpophalangeal joint. No fracture. No dislocation advised physical therapy/occupational therapy. Patient has seen Urology also 11/29/2023 for the prostate cancer 2022 had GnRH treatment and radiotherapy. Continuing surveillance. [facility] Medical History (Updated 02/05/24 @ 15:48 by Raquel Ugarte MD) Pain of left thumb Hypercholesterolemia BPH (benign prostatic hyperplasia) Dupuytren's contracture of right hand GERD (gastroesophageal reflux disease) Hiatal hernia Acne C3 cervical fracture Social History (Updated 02/05/24 @ 15:51 by Raquel Ugarte MD) Housing: Apartment Alcohol intake: current Comment: daily wine Patient Tobacco Use Status: Former Tobacco user Tobacco use type: Cigarette Years Smoked: stopped 07/2014 (intermittent 17 year 4-5 cigarettes ) e-Cigarette/Vaping Use: Never Used Second Hand Smoke Exposure: No service: No Current occupational status: retired Current occupation: right hand dominant Cognitive needs: No Hearing needs: No Vision needs: Yes Questionnaire PHQ-9 Over the last 2 weeks, how often have you been bothered by any of the following problems? 1. Little interest or pleasure in doing things: not at all 2. Feeling down, depressed, or hopeless: not at all 3. Trouble falling or staying asleep, or sleeping too much: not at all 4. Feeling tired or having little energy: not at all 5. Poor appetite or overeating: not at all 6. Feeling bad about yourself - or that you are a failure or have let yourself or your family down: not at all 7. Trouble concentrating on things, such as reading the newspaper or watching television: not at all 8. Moving or speaking so slowly that other people could have noticed. Or the opposite - being so fidgety or restless that you have been moving around a lot more than usual: not at all 9. Thoughts that you would be better off or of hurting yourself in some way: not at all Total score: 0 Source: Developed by Drs. Harley Silver, Radha Morales, Christian Rodriguez and colleagues, with an educational richard from [employer]. Thrive Questionnaire Date Thrive assessed: 02/05/24 I am a: Patient What is your living situation today?: I have a steady place to live Within the past 12 months, did the food you bought not last and you didn't have the money to get more?: Never true Within the past 12 months, did you worry whether your food would run out before you got money to buy more?: Never true Do you have trouble paying for medicines?: No Do you have trouble getting transportation to medical appointments?: No Do you have trouble paying your heating and electricity bill?: No Do you have trouble taking care of your child, family member or friend?: No Do you have trouble with day-to-day activities such as bathing, preparing meals, shopping, managing finances, etc.?: No Are you currently unemployed and looking for a job?: No Are you interested in more education?: No Please select the resources that you would like help with: None Currently or been in a relationship where the following occur: I choose not to answer THRIVE Score: 0 AUDIT C Alcohol Use Questionnaire (AUDIT-C) 1. How often do you have a drink containing alcohol?: 2-3 times a week 2. How many drinks containing alcohol do you have on a typical day when you are drinking?: 1 or 2 3. How often do you have six or more drinks on one occasion?: Never Total Score: 3 REE-7 AMB Questionnaire REE-7 Date REE - 7 assessed: 05/08/23 Feeling nervous, anxious, or on edge: 0 = Not at all Not being able to stop or control worryin = Not at all Worrying too much about different things: 0 = Not at all Trouble relaxin = Not at all Being so restless that it is hard to sit still: 0 = Not at all Becoming easily annoyed or irritable: 0 = Not at all Feeling afraid as if something awful might happen: 0 = Not at all Total REE-7 score (0-4 normal; 5-9 mild; 10-14 moderate; 15-21 severe): 0 Source: Developed by Drs. Harley Silver, Radha Morales, Christian Rodriguez and colleagues, with an educational richard from [employer]. Review of Systems Const Denies poor appetite and Denies weakness Eyes Denies no additional complaints ENT Reports Normal hearing present, Denies dizziness, Denies nasal congestion, Denies tinnitus and Denies sore throat Card Denies chest pain, Denies syncope, Denies rapid heart rate and Denies dyspnea Resp Denies cough and Denies dyspnea GI Denies change in stool character, Reports constipation, Denies diarrhea, Denies nausea and Denies vomiting Denies dysuria and Denies urinary frequency Neuro Reports Normal hearing present, Denies confusion, Denies dizziness, Denies syncope and Denies weakness Psych Denies confusion Physical exam (Primary Care) Vital Signs: Last Vital Signs Pulse 66 02/05/24 15:11 BP 136/80 02/05/24 15:11 Pulse Ox 98 02/05/24 15:11 Oxygen Delivery Method Room Air 02/05/24 15:11 BMI result Body Mass Index 24.4 Tobacco/Smoking Status: Tobacco use Status Tobacco use date assessed 05/08/23 02/05/24 15:12 Patient Tobacco Use Status Former Tobacco user 02/05/24 15:12 Tobacco use type Cigarette 02/05/24 15:12 e-Cigarette/Vaping Use Never Used 11/05/24 15:12 PHQ-9: PHQ-9 Score PHQ-9: Total score 0 02/05/24 15:43 Thrive Assessment: Date of Thrive Assessment Date Thrive assessed 02/05/24 02/05/24 15:12 Currently or been in a relationship where the following occur: I choose not to answer Const General: No confusion Orientation/consciousness: No confusion HENMT Head: Yes normocephalic Ears: external ears normal and TM's normal bilaterally Face and sinus: Yes normal facial exam Mouth: moist mucous membranes Throat: Yes tonsils normal Eyes Conjunctivae: conjunctivae normal Pupils: Equal, round and reactive pupils present and Pupil accommodation reflex normal Direct Ophthalmoscopy: normal light reflex Neck Neck: No lymphadenopathy Thyroid: Thyroid normal Chest Chest palpation & inspection: normal inspection of the chest Resp Effort & Inspection: normal respiratory effort and no audible wheezes Auscultation: clear to auscultation bilaterally, no crackles, no wheezes and lung sounds not diminished Cardio Rate: regular rate Rhythm: regular rhythm Peripheral pulses: radial pulses present and dorsalis pedis present GI Other: guaiac negative prostate enlarged Palpation (GI): no masses Auscultation: normal bowel sounds and normoactive bowel sounds Male General Exam: Yes normal external exam Skin General skin exam: no rashes or lesions noted Rashes: no rashes Neuro General: No confusion Cranial nerves: Yes Equal, round and reactive pupils present and Yes Normal hearing present Cognition (Neuro): normal cognition Gait exam (Neuro): Normal gait present Motor exam (neuro): 5/5 motor strength present throughout Deep tendon reflexes (DTR's): Right brachioradialis reflex intensity grade: 2+, Left brachioradialis reflex intensity grade: 2+, Right patellar reflex intensity grade: 2+ and Left patellar reflex intensity grade: 2+ Extrem General: No edema Office Procedures Flu Questionnaire Does the patient have a severe egg allergy?: No Does the patient have severe life threatening allergies?: No Does the patient have a fever or illness today?: No Has the patient ever had Guillain-Madison Syndrome?: No Has the patient ever had any past reaction to a flu shot?: No Immunizations Fluarix Triv [id number] (PF) 45 mcg (15 mcg x 3)/0.5 mL IM syringe Performing Provider: Raquel Ugarte MD [place] [facility] [place] [facility] by: Genny Mireles LPN on 02/05/24 15:42 Dose Route Admin Location Dispensed Lot Number Expiration Date [facility] Professor Of Archaeology 0.5 mL IM Left Deltoid 0.5 mL [id number] 09/29/24 [id number] [employer] VIS Given Date VIS Provided VIS Publication Date 02/05/24 Single Vaccine 20 Eligibility Eligibility Date Funding Source Not [facility] Eligible 02/05/24 Private Coding Level of Care Code Est Pt Prev Care >65y(25228) Diagnoses Annual physical exam Z00.00 Prostate cancer C61 Hypercholesterolemia E78.00 Arthritis of carpometacarpal (CMC) joint of left thumb M18.12 Assessment & Plan Assessment & Plan (1) Annual physical exam: Code(s): Z00.00 - Encounter for general adult medical examination without abnormal findings Category: Medical Plan: Patient is advised to eat healthy, keep well hydrated, keep active and have adequate sleep. (2) Prostate cancer: Comment: 03/23 unfavorable intermediate risk January 2022 treatment with EXBRT 09/22 Code(s): C61 - Malignant neoplasm of prostate Category: Medical Plan: Patient follows up with urology and under surveillance. (3) Hypercholesterolemia: Code(s): E78.00 - Pure hypercholesterolemia, unspecified Category: Medical Plan: Avoid fried foods, chicken skin, eggs, butter margarine, pastries and meat. Be it pork or beef they have a lot of cholesterol (4) Arthritis of carpometacarpal (CMC) joint of left thumb: Code(s): M18.12 - Unilateral primary osteoarthritis of first carpometacarpal joint, left hand Category: Medical Plan: Patient has seen Orthopedics and had physical therapy and occupational therapy. Orders: Orders Complete Blood Count Auto Diff Today E78.00 - Pure hypercholesterolemia, unspecified Vitamin B12 and Folate Today E78.00 - Pure hypercholesterolemia, unspecified Reticulocyte Count Today E78.00 - Pure hypercholesterolemia, unspecified Ferritin Today E78.00 - Pure hypercholesterolemia, unspecified Influenza [id number] Immunization Today Z23 - Encounter for immunization Comprehensive Met. Panel Today E78.00 - Pure hypercholesterolemia, unspecified Free T4 (Free Thyroxine) Today E78.00 - Pure hypercholesterolemia, unspecified Lipid Panel Today E78.00 - Pure hypercholesterolemia, unspecified Thyroid Stimulating Hormone Today E78.00 - Pure hypercholesterolemia, unspecified IRON PROFILE Today E78.00 - Pure hypercholesterolemia, unspecified
== END 2024-02-05 16:09 | disposition home or self-care (01) ==
LOC: HO.HMCH 14:45
PROVIDERS: PCP Internal Medicine; Visit Provider Internal Medicine
DX: Z00.00 Encounter for general adult medical examination without abnormal findings (principal); C61 Malignant neoplasm of prostate; E78.00 Pure hypercholesterolemia, unspecified; M18.12 Unilateral primary osteoarthritis of first carpometacarpal joint, left hand; Z23 Encounter for immunization

== ENCOUNTER → 2024-02-05 14:44 | Outpatient (BNVA) | payer MEDICARE, SELFPAY | PROVIDERS: PCP Internal Medicine; Visit Provider Internal Medicine | DX: Z00.00 Encounter for general adult medical examination without abnormal findings (principal); Z23 Encounter for immunization; C61 Malignant neoplasm of prostate; E78.00 Pure hypercholesterolemia, unspecified; M18.12 Unilateral primary osteoarthritis of first carpometacarpal joint, left hand | CPT/HCPCS: 90471; 90656; 96127; 99397 ==

== ENCOUNTER 2024-03-20 06:35 | Outpatient (REF) | payer MEDICARE, SELFPAY ==
--- OUTSIDE RECORDS SUMMARY | 2024-03-20 06:38 | XMS_ITS ---
Author Name [facility] Organization Unknown History of Medication Use Medication Directions Dispensed Refills Start Date End Date Stat finasteride (PROSCAR) 5 MG tablet Take 1 tablet (5 mg total) by mouth daily. 05/31/2022 active No known medications No known medications 2022 active minocycline (MINOCIN) 100 MG capsule TAKE 1 CAPSULE BY MOUTH TWICE A DAY WITH FOOD 05/31/2022 active sildenafil (REVATIO) 20 MG tablet Take 3-5 tabs 1 hour before sex. Take 2 pills at bedtime if no sex that day. Maximum 5 pills a day. 05/31/2022 active Problems Problem Status Onset Date Problem Type Date of Resoluti on Source Prostate cancer active 2022-05-29 ProblemAct CCT
--- OUTSIDE RECORDS SUMMARY | 2024-03-20 06:38 | XMS_ITS | Data Portability ---
Author Organization [place] - [facility], [address] Address [address] [place] [address] Assessment No assessment recorded. Plan of Treatment Reminders Order Date Submit Date Provider Last Modified By Organization Details Last Modified Time Details Appointments None recorded. Lab None recorded. Referral orthopedic surgeon referral - Partial subluxatio n of the first metacarpop halangeal joint. left thumb . need further evaluation and treatment. [facility] [address], [place], [address], 11:00:33 Procedures None recorded. Surgeries None recorded. Imaging XR, hand, 3 or more view 2023 024 [email or web address] [facility], [address] [place] [address].[place], [address], 09:47:59 Medication Orders None recorded. Patient TargetsNo targets recorded. Patient Instructions Encounter Date Encounter Id Patient Instructions Last Modified By Organization Details Last Modified Time 10/25/2023 [id number] learning about rice (rest, ice, compression, and elevation) [email or web address] Not available 10/25/2023 09:08:54 Reason for Referral Orthopedic Surgeon Referral for Pain in left thumb Partial subluxation of the first metacarpophalangeal joint. left thumb . need further evaluation and Partial subluxation of the first metacarpophalangeal joint. left thumb . need further evaluation and treatment. Referring Physician: Raad Gibson, Urgent Care, Encounter Date: 10/25/2023 Results Created Date Observation Date Name Description Value Unit Range Abnormal Flag Note LastModifiedBy Organization Detail LastModifiedTime 10/25/19 24 10/25/2023 XR, hand, 3 or more view No observ ation record ed. [email or web address] [facility] [address] [place], [address], 10/25/2023 10:05:17 Result Notes None recorded. Problems Name Problem SNOMED Code Status Onset Date Resolution Date Notes Provider Name and Address Organization Details Recorded Time Pain in left thumb [id number] Active 2023 Raad Gibson, REHABILITATION AIDE/SCHEDULER [address] , [place], [address], [place] - [facility] 09:05:32 Problem Notes None recorded. Procedures Surgical History None recorded. Imaging Results Imaging Date Name Status LastModified by Organiz ation Details LastModified Time 10/25/2023 XR, hand, 3 or more view completed [email or web address] [facility] [address] [place], [address], 10/25/2023 10:05:17 Procedure Notes None recorded. Medical Equipment None Reported. Medications Name Sig Start Date Stop Date Status Note LastModified by Organization Details LastModified Time finasteride 5 mg tablet TAKE 1 TABLET BY MOUTH DAILY active Not Available Not Available No t Available Vitals Date Recorded Body height Body mass index (BMI) Body weight Oxygen saturation Oxygen saturation in Arterial blood by Pulse oximetry Heart rate Respiratory rate Body temperature Systolic blood pressure Diastolic blood pressure Provider Name and Address Organization Details Last Updated DateTime 4 175.26 cm 23.9 kg/m2 02352.9 6 g 99 % 99 % 71 /min 18 /min 97.6 [degF] 146 mm[Hg] 93 mm[Hg] Jacinta Mendez PA - [facility] 08:59:43 Social History Question Answer Notes LastModified by Organizat ion Details LastModified Time Tobacco Smoking Status Never Smoker Jacinta gonzalez [place] - [facility] 10/25/2023 09:01:16 What Is Your Level Of Alcohol Consumption? Moderate [email or web address] Information not available 10/25/2023 Are You Currently Employed? Yes [email or web address] Information not available 10/25/2023 Have You Had A Flu Shot This Season? Yes [email or web address] Information not available 10/25/2023 Are You Passively Exposed To Smoke? No [email or web address] Information no t available 10/25/2023 Do You Use Any Illicit Or Recreational Drugs? No Information not available 10/25/2023 Have You Recently Traveled Abroad? No Information not available 10/25/2023 Do You Or Have You Ever Used Any Other Forms Of Tobacco Or Nicotine? No [email or web address] Information not available 10/25/2023 Sex: Unknown Functional Status None recorded. Mental Status None recorded. Family History Nothing Reported. Medical History No medical history recorded. Past Encounters Encounter ID Performer Location Encounter Start Date Encounter Closed Date Diagnosis/Indication Diagnosis SNOMED-CT Code Diagnosis ICD10 Code [id number] [facility] [facility] [address] [place] [address] 11/19/2021 09:20:42 11/19/2021 10:01:52 [id number] Raad Gibson, REHABILITATION AIDE/SCHEDULER [address] [facility] [facility] [address] [place] [address] 10/25/2023 08:51:34 10/25/2023 09:47:58 Pain in left thumb [id number] 053663 M79.645 Health Concerns Section Related Observation LastModified by Organization Detai ls LastModified Time None Recorded Concern Status LastModified by Organization Details LastModified Time None Recorded Advance Directives Directive None Recorded Payers Encounter Date Sequence Insurance Name Policy Number Policy Rojas Covered Member ID Rojas Member ID Guarantor Name 11/19/2021 1 [facility] (MEDICAID REPLACEMENT - HMO) Florian Medel [id number] Florian Medel 10/25/2023 1 [facility] (MEDICAID REPLACEMENT - HMO) Florian Medel [id number] Florian Medel Notes Date Note Type Note Provider Name and Address Organization Details Recorded Time 10/25/2023 text/html Finger Pain[facility]or fabiola bypatient.source of patient informationsource of patient information patient; breaking a dog fight and himself fell and now have left thumb pain . Onset:abrupt onset; started after an event Locationlocation: left; Thumb Finger;MCP joint;proximal phalanx Neurovascular Status:no numbness or tingling Symptoms:pain with ROM;swelling Treatment:rest; ice Raad TAM Gibson [address] [place], [address], [place] - [facility] 10/25/2023 09:56:11
[2024-03-20 06:45] LABS: MANUAL DIFF FLAG NO
[2024-03-20 07:27] LABS: Basophils Percent Auto 0.4 % (0-2); Eosinophils Percent Auto 0.6 % (0-4); Hematocrit 45.5 % (42.0-52.0); Hemoglobin 15.3 g/dl (14.0-18.0); Imm Gran Abs Auto 0.01 X10*3/uL (0.00-0.03); Imm Gran Pct Auto 0.2 % (0.0-0.4); Immature Retic Fraction 4.5 % (2.3-13.4); Lymphocytes Absolute Auto 1.6 X10*3/uL (1.2-4.9); Lymphocytes Percent Auto 34.4 % (20-40); Mean Corpuscular HGB Conc 33.6 g/dl (31.0-36.0); Mean Corpuscular Hemoglobin 31.4 pg (27.0-33.0); Mean Corpuscular Volume 93.2 fL (80.0-98.0); Mean Platelet Volume 10.8 fL (9.4-12.4); Monocytes Absolute Auto 0.4 X10*3/uL (0.1-1.2); Monocytes Percent Auto 7.5 % (2-11); Neutrophils Absolute Auto 2.7 x10*3/uL (2.0-8.3); Neutrophils Percent Auto 56.9 % (45-73); Platelet Count 165 X10*3/uL (160-400); Red Blood Count 4.88 X10*6/uL (4.60-5.80); Red Cell Distribution Width 12.7 % (11.0-16.0); Retic HGB Equivalent 35.2 pg (30.0-35.0); Reticulocyte Percent 1.1 % (0.5-1.8); Reticulocytes Absolute 0.054 X10*6/uL (0.026-0.095); White Blood Count 4.7 X10*3/uL (4.8-10.8)
[2024-03-20 07:56] LABS: Alanine Aminotransferase 25 U/L (0-40); Albumin Level 4.3 g/dL (3.5-5.0); Alkaline Phosphatase 50 U/L (39-117); Anion Gap 11 (12-20); Aspartate Amino Transferase 28 U/L (5-37); Bilirubin Total 0.6 mg/dL (0.0-1.0); Blood Urea Nitrogen 21 mg/dL (9-16); Calcium 9.2 mg/dL (8.4-10.2); Carbon Dioxide 29 mmol/L (22-29); Chloride 108 mmol/L (96-108); Cholesterol 218 mg/dL (<200); Estimated Glomerular Filt Rate > 60; Glucose Random 91 mg/dL (60-115); HDL Cholesterol 75 mg/dL (>40); Iron 80 mcg/dL (45-160); LDL Cholesterol Calculated 130 mg/dL (<100); Percent Iron Saturation 36 % (15-50); Potassium 4.1 mmol/L (3.3-5.1); Sodium 144 mmol/L (135-145); Total Iron Binding Capacity 222 mcg/dL (228-428); Total Protein 6.8 g/dL (6.5-8.0); Triglycerides 66 mg/dL (<150); Unsaturated Iron Binding 142 ug/dL
[2024-03-20 08:07] LABS: Prostate Specific Antigen 0.81 ng/mL (<0.05-4.0)
[2024-03-20 08:11] LABS: Ferritin 231 ng/mL (20-250); Free T4 (Free Thyroxine) 1.18 ng/dL (0.71-1.85); Thyroid Stimulating Hormone 2.28 uIU/mL (0.32-4.0)
[2024-03-20 08:20] LABS: Folate 12.3 ng/mL (> or = 4.0); Vitamin B12 697 pg/mL (200-900)
== END 2024-03-20 06:36 | disposition home or self-care (01) ==
LOC: HO.LAB 06:35
PROVIDERS: Absent Provider Internal Medicine; PCP Internal Medicine; Visit Provider Urology
DX: E78.00 Pure hypercholesterolemia, unspecified (principal); C61 Malignant neoplasm of prostate; Z12.5 Encounter for screening for malignant neoplasm of prostate
CPT/HCPCS: 36415; 80053; 80061; 82607; 82728; 82746; 83540; 84153; 84439; 84443; 85025; 85045

== ENCOUNTER 2024-03-27 08:47 | Outpatient (AMB) | payer MEDICARE, SELFPAY ==
--- NOTE | 2024-03-27 08:47 | MHC.OFFVIS ---
Intake Visit Reasons: 4m/PSA(set) Intake Note: Patient is present for 4m/psa Urology Medication:none Antibiotic Allergy:none Blood Thinner:none Alarm Installer Required: No Allergies No Known Allergies Allergy (Verified 03/27/24 08:48) HPI Comments Details: Florian is a very pleasant male. He is a patient of Dr. Morrison. He is seen for the following urologic conditions. - elevated PSA - lower urinary tract symptoms - prostate cancer Telemedicine Evaluation 15 min Consultation DoxEDITD Geno Video PSA 02/22 <0.1 T 43, 06/23 <0.1, 11/23 1.2 T 850, 03/25 0.8 PSA stable Otherwise doing well with control 4 month follow-up Prostate Cancer 03/2322 Grade group 3, Low Volume 09/22 EXBRT with short-term 6 month Gn[facility] - [facility] [address] George 20 fractions Diagnosed for PSA 4.1 Size at diagnosis 35 gm pT1c Monisha score: 4+3=7 (right base lateral) 20% ; 3+3=6 (right mid lateral) 20% Tumor quantitation: Number cores positive: 2 Total number of cores: 12 % of tissue involved: = Less than 5% of all tissue examined Periprostatic fat inv.: Not identified Seminal vesicle inv.:Not identified Perineural inv.: Not identified LVI: Not identified Laboratory investigations include 02/18 4.5, 07/20 4.0, 01/19 3.6, 07/21 3.9, 01/20 4.8, 06/21 3.5, 01/21 4.1 14% Imaging 04/24 - MRI PI-RADS 3 0.7 cc organ contained Genetics - 04/24 Prolaris multimodal therapy PFSH Medical History (Updated 02/05/24 @ 15:48 by Raquel Ugarte MD) Pain of left thumb Hypercholesterolemia BPH (benign prostatic hyperplasia) Dupuytren's contracture of right hand GERD (gastroesophageal reflux disease) Hiatal hernia Acne C3 cervical fracture Social History (Updated 02/05/24 @ 15:51 by Raquel Ugarte MD) Housing: Apartment Alcohol intake: current Comment: daily wine Patient Tobacco Use Status: Former Tobacco user Tobacco use type: Cigarette Years Smoked: stopped 07/2014 (intermittent 17 year 4-5 cigarettes ) e-Cigarette/Vaping Use: Never Used Second Hand Smoke Exposure: No service: No Current occupational status: retired Current occupation: right hand dominant Cognitive needs: No Hearing needs: No Vision needs: Yes Review of Systems Const All systems reviewed & are unremarkable except as noted in HPI and below Reports no additional complaints Resp Reports no additional complaints GI Reports no additional complaints Reports as per HPI Musc Reports no additional complaints Physical Exam Telemedicine evaluation Appropriate responses Regular breathing rate and rhythm HEENT Head: Yes normal to inspection Ears: hearing grossly normal bilaterally Eyes General: appearance normal, both eyes and all related structures Neck Neck: Yes normal visual inspection Chest Chest palpation & inspection: normal inspection of the chest Resp Effort & Inspection: normal respiratory effort and able to speak in complete sentences Telehealth Telehealth Telehealth Platform: [employer] Location of provider rendering services: practice address Location of patient: address on file Patient Identification confirmed using: Name, : Yes Telehealth method: video Patient verbally consented to treatment: Yes Patient verbally consented to billing insurance company: Yes Patient informed of any privacy concerns related to visit: Yes Minutes spent on Phone/Video with Pt.: 15 Assessment & Plan Assessment & Plan (1) Prostate cancer: Comment: 03/23 unfavorable intermediate risk January 2022 treatment with EXBRT 09/22 Code(s): C61 - Malignant neoplasm of prostate Category: Medical Plan Four month follow-up PSA Orders: Orders Prostate Specific Antigen 4 Months C61 - Malignant neoplasm of prostate Patient Instructions: Imaging studies, laboratory and physical exam results were discussed and reviewed in detail. No major barriers to patient understanding were identified. An opportunity to ask questions regarding the treatment plan was provided. All questions were answered. The patient expressed understanding and agreement with the above treatment plan. The patient is aware they should contact our office by phone for worsening of their current condition or the appearance of new urologic symptoms. Compliance is encouraged with any medications and followup testing that is ordered. It is a privilege to participate in the urologic care of your patient. If you have any questions or concerns regarding treatment for the above conditions, or other urologic issues, please do not hesitate to contact me. The office telephone contact is [phone]. This note is constructed using voice recognition software. While every effort has been made to ensure accuracy visitor services associate errors may have been included. Yours sincerely, Dr Mario Heredia MD, [facility] - Urology Providers of Expert, Compassionate Care for the Genitourinary System Coding Level of Care Code Tele Est Pt Level 3 (02008) Diagnoses Prostate cancer C61
--- OUTSIDE RECORDS SUMMARY | 2024-03-27 08:54 | XMS_ITS | Data Portability ---
Author Organization [place] - [facility], [address] Address [address] [place] [address] Assessment No assessment recorded. Plan of Treatment Reminders Order Date Submit Date Provider Last Modified By Organization Details Last Modified Time Details Appointments None recorded. Lab None recorded. Referral orthopedic surgeon referral - Partial subluxatio n of the first metacarpop halangeal joint. left thumb . need further evaluation and treatment. [facility], [address], [place], [address], 11:00:33 Procedures None recorded. Surgeries None recorded. Imaging XR, hand, 3 or more view 2023 024 [email or web address] [facility], [address] [place] [address], [address], 09:47:59 Medication Orders None recorded. Patient TargetsNo targets recorded. Patient Instructions Encounter Date Encounter Id Patient Instructions Last Modified By Organization Details Last Modified Time 10/25/2023 [id number] learning about rice (rest, ice, compression, and [...] ed. [email or web address] [facility] [address] [place], [address], 10/25/2023 10:05:17 Result Notes None recorded. Problems Name Problem SNOMED Code Status Onset Date Resolution Date Notes Provider Name and Address Organization Details Recorded Time Pain in left thumb [id number] Active 2023 Raad Gibson, SEARCH ADVERTISING STRATEGIST [address] [place] [address] , [place], [address], [place] - [facility] 09:05:32 Problem Notes None recorded. Procedures Surgical History None recorded. Imaging Results Imaging Date Name Status LastModified by Organiz ation Details LastModified Time 10/25/2023 XR, hand, 3 or more view completed [email or web address] [facility] [address] [place], [address], 10/25/2023 10:05:17 Procedure Notes None recorded. Medical [...] Updated DateTime 4 175.26 cm 23.9 kg/m2 41524.9 6 g 99 % 99 % 71 /min 18 /min 97.6 [degF] 146 mm[Hg] 93 mm[Hg] Jacinta Mendez PA - [facility] 08:59:43 Social History Question Answer Notes LastModified by Organizat ion Details LastModified Time Tobacco Smoking Status Never Smoker Jacinta gonzalez PA - [facility] 10/25/2023 09:01:16 What Is Your Level Of Alcohol Consumption? Moderate [email or web address] Information not available 10/25/2023 Are You Currently Employed? Yes [email or web address] Information not available 10/25/2023 Have You Had A Flu Shot This Season? Yes [email or web address] Information not available 10/25/2023 Are You Passively Exposed To Smoke? No [email or web address] Information no t available 10/25/2023 Do You Use Any Illicit Or Recreational Drugs? No [email or web address] Information not available 10/25/2023 Have You Recently Traveled Abroad? No [email or web address] Information not available 10/25/2023 Do You Or Have You Ever Used Any Other Forms Of Tobacco Or Nicotine? No Information not available 10/25/2023 Sex: Unknown Functional Status None recorded. Mental Status None recorded. Family History Nothing Reported. Medical History No medical history recorded. Past Encounters Encounter ID Performer Location Encounter Start Date Encounter Closed Date Diagnosis/Indication Diagnosis SNOMED-CT Code Diagnosis ICD10 Code [id number] [address] [facility] [address] [place] [address] 11/19/2021 09:20:42 11/19/2021 10:01:52 [id number] Raad Gibson, SEARCH ADVERTISING STRATEGIST [address] [place] [address] 10/25/2023 08:51:34 10/25/2023 09:47:58 Pain in left thumb 8307968008 683848 M79.645 Health Concerns Section Related Observation LastModified by Organization Detai ls LastModified Time None Recorded Concern Status LastModified by Organization Details LastModified Time None Recorded Advance Directives Directive None Recorded Payers Encounter Date Sequence Insurance Name Policy Number Policy Rojas Covered Member ID Rojas Member ID Guarantor Name 11/19/2021 1 [facility] (MEDICAID REPLACEMENT - HMO) Florian Medel [id number] Florian Medel 10/25/2023 1 [facility] (MEDICAID REPLACEMENT - HMO) Florian Medel [id number] Florian Medel Notes Date Note Type Note [...] or tingling Symptoms:pain with ROM;swelling Treatment:rest; ice Arad TAM Gibson [address] [place], [address], [place] - [facility] 10/25/2023 09:56:11
== END 2024-03-27 10:49 | disposition home or self-care (01) ==
LOC: HO.HUSH 08:47
PROVIDERS: PCP Internal Medicine; Visit Provider Urology
DX: C61 Malignant neoplasm of prostate (principal)
CPT/HCPCS: 99213

== ENCOUNTER → 2024-03-27 08:47 | Outpatient (BNVA) | payer MEDICARE, SELFPAY | PROVIDERS: PCP Internal Medicine; Visit Provider Urology ==

== ENCOUNTER 2024-08-05 14:08 | Outpatient (AMB) | payer BC, SELFPAY ==
[2024-08-05 14:11] VITALS: BP 122/72; PULSE 61; O2SAT 97; BMI 24.2
--- NOTE | 2024-08-05 14:11 | A.OFFPC_ITS ---
Vital Signs 08/05/24 14:11 Height 5 ft 9 in Weight 164 lb BMI 24.2 BP 122/72 Blood Pressure Location Lt brachial Position Sitting Pulse 61 Pulse Source Pulse Oximeter Pulse Oximetry (%) 97 Oxygen Delivery Method Room Air Intake Visit Reasons: anemia Allergies No Known Allergies Allergy (Verified 08/05/24 14:11) Medication List - Last Reconciled 08/05/24 by Raquel Ugarte MD cholecalciferol (vitamin D3) 25 mcg PO DAILY ibuprofen 400 mg PO Q8H PRN multivitamin 1 tab PO DAILY Tobacco use date assessed: 08/05/24 Fall risk assessment: No Falls in past year Last assessed Fall Risk: 08/05/24 Dental Screening Dental Screen Date: 08/05/24 Did you have a dental visit in the last 12 months?: Yes Did you have a dental problem in the last 6 months where you did not have access to dental care?: No Was dental information given to patient?: Patient has dentist [facility] Medical History (Updated 02/05/24 @ 15:48 by Raquel Ugarte MD) Pain of left thumb Hypercholesterolemia BPH (benign prostatic hyperplasia) Dupuytren's contracture of right hand GERD (gastroesophageal reflux disease) Hiatal hernia Acne C3 cervical fracture Social History (Updated 02/05/24 @ 15:51 by Raquel Ugarte MD) Housing: Apartment Alcohol intake: current Comment: daily wine Patient Tobacco Use Status: Former Tobacco user Tobacco use type: Cigarette Years Smoked: stopped 07/2014 (intermittent 17 year 4-5 cigarettes ) e-Cigarette/Vaping Use: Never Used Second Hand Smoke Exposure: No service: No Current occupational status: retired Current occupation: right hand dominant Cognitive needs: No Hearing needs: No Vision needs: Yes Questionnaire PHQ-9 Over the last 2 weeks, how often have you been bothered by any of the following problems? 1. Little interest or pleasure in doing things: not at all 2. Feeling down, depressed, or hopeless: not at all 3. Trouble falling or staying asleep, or sleeping too much: not at all 4. Feeling tired or having little energy: not at all 5. Poor appetite or overeating: not at all 6. Feeling bad about yourself - or that you are a failure or have let yourself or your family down: not at all 7. Trouble concentrating on things, such as reading the newspaper or watching television: not at all 8. Moving or speaking so slowly that other people could have noticed. Or the opposite - being so fidgety or restless that you have been moving around a lot more than usual: not at all 9. Thoughts that you would be better off or of hurting yourself in some way: not at all Total score: 0 Depression Screening Interpretation: Negative Depression Screening Done: Yes Source: Developed by Drs. Harley Silver, Radha Morales, Christian Rodriguez and colleagues, with an educational richard from [employer]. Thrive Questionnaire Date Thrive assessed: 07/29/24 I am a: Patient What is your living situation today?: I have a steady place to live Within the past 12 months, did the food you bought not last and you didn't have the money to get more?: Never true Within the past 12 months, did you worry whether your food would run out before you got money to buy more?: Never true Do you have trouble paying for medicines?: No Do you have trouble getting transportation to medical appointments?: No Do you have trouble paying your heating and electricity bill?: No Do you have trouble taking care of your child, family member or friend?: No Do you have trouble with day-to-day activities such as bathing, preparing meals, shopping, managing finances, etc.?: No Are you currently unemployed and looking for a job?: No Are you interested in more education?: No Please select the resources that you would like help with: None Currently or been in a relationship where the following occur: No concerns reported THRIVE Score: 0 AUDIT C Alcohol Use Questionnaire (AUDIT-C) 1. How often do you have a drink containing alcohol?: 4 or more times a week 2. How many drinks containing alcohol do you have on a typical day when you are drinking?: 1 or 2 3. How often do you have six or more drinks on one occasion?: Never Total Score: 4 REE-7 AMB Questionnaire REE-7 Date REE - 7 assessed: 08/05/24 Feeling nervous, anxious, or on edge: 0 = Not at all Not being able to stop or control worryin = Not at all Worrying too much about different things: 0 = Not at all Trouble relaxin = Not at all Being so restless that it is hard to sit still: 0 = Not at all Becoming easily annoyed or irritable: 0 = Not at all Feeling afraid as if something awful might happen: 0 = Not at all Total REE-7 score (0-4 normal; 5-9 mild; 10-14 moderate; 15-21 severe): 0 Source: Developed by Drs. Harley Silver, Radha Morales, Christian Rodriguez and colleagues, with an educational richard from [employer]. Physical exam (Primary Care) Vital Signs: Last Vital Signs Pulse 61 08/05/24 14:11 BP 122/72 08/05/24 14:11 Pulse Ox 97 08/05/24 14:11 Oxygen Delivery Method Room Air 08/05/24 14:11 BMI result Body Mass Index 24.2 Tobacco/Smoking Status: Tobacco use Status Tobacco use date assessed 08/05/24 08/05/24 14:12 Patient Tobacco Use Status Former Tobacco user 08/05/24 14:12 Tobacco use type Cigarette 08/05/24 14:12 e-Cigarette/Vaping Use Never Used 08/05/24 14:12 PHQ-9: PHQ-9 Score PHQ-9: Total score 0 08/05/24 15:00 Depression Screening Interpretation: Negative Thrive Assessment: Date of Thrive Assessment Date Thrive assessed 07/29/24 08/05/24 14:12 Currently or been in a relationship where the following occur: No concerns reported Const General: alert; No acute distress Eyes Conjunctivae: conjunctivae normal Resp Auscultation: clear to auscultation bilaterally Cardio Rate: regular rate Rhythm: regular rhythm GI Inspection: Yes normal to inspection Extrem General: Yes normal to inspection and No edema Coding Level of Care Code Est Pt Level 4 (38488) Diagnoses Prostate cancer C61 Hypercholesterolemia E78.00 BPH (benign prostatic hyperplasia) N40.0 Assessment & Plan Assessment & Plan (1) Prostate cancer: Comment: 03/23 unfavorable intermediate risk January 2022 treatment with EXBRT 09/22 Code(s): C61 - Malignant neoplasm of prostate Category: Medical Plan: Continue to follow-up with urology in following up with PSA (2) Hypercholesterolemia: Code(s): E78.00 - Pure hypercholesterolemia, unspecified Category: Medical Plan: Avoid fried foods, chicken skin, eggs, butter margarine, pastries and meat. Be it pork or beef they have a lot of cholesterol LDL goal of less than 130 and triglyceride of less than 150. Diet controlled (3) BPH (benign prostatic hyperplasia): Code(s): N40.0 - Benign prostatic hyperplasia without lower urinary tract symptoms Category: Medical Plan: Stable. Plan History of Present Illness The patient is a 68-year-old male presenting for a follow-up visit. His medical history is notable for a cervical spine fracture sustained from a lateral fall in 2019, BPH, hypercholesterolemia, and a 2021 prostate cancer diagnosis. The patient's last blood tests in March showed maintenance of a normal range in most parameters with mild chronic leukopenia, which is consistent with previous results. Dietary management has helped maintain his cholesterol levels as well as overall health. Recent urology evaluations continue to show a stable prostate-specific antigen level of 0.81 ng/mL. He actively engages in exercise and maintains a nutritious diet for overall health upkeep. Follow-up colonoscopy screening was last completed in 2015, and ongoing monitoring of cholesterol, BPH, and prostate cancer is in place with urology consultation. Health Maintenance - Routine colonoscopy last performed in 2015. - Regular follow-up with urology for prostate cancer management and PSA monitoring. - Blood work in March shows chronic mild leukopenia, with cholesterol management targeting LDL below 130 mg/dL and triglycerides below 150 mg/dL. - Diet and exercise are prioritized, with a daily walking target of approximately 4 miles. Social History - Enjoys cooking homemade meals with a focus on nutritious foods, incorporating vegetables, protein, and red wine. - Engages in regular exercise, averaging about 4 miles per day. - Sustained a habit of preparing most food instead of consuming prepared foods due to cultural practices. - Drinks water daily, though unsure if the amount is sufficient. Review of Systems - Neurological: Denies any new symptoms. - Cardiovascular: Denies any new symptoms. - Respiratory: Denies any new symptoms; reports regular exercise tolerance. - Gastrointestinal: Denies any new symptoms; last colonoscopy in 2015. - Genitourinary: Following up on BPH, prostate cancer status stable. - Endocrine: Reports normal thyroid function. - Hematologic/Immunologic: Reports history of chronic mild leukopenia. - Musculoskeletal: Following up on cervical spine fracture. - Metabolic: Reports cholesterol management under dietary control. - General: Reports overall good health without new concerns. Physical Exam Results - Labs: March blood tests show normal blood count with mild chronic leukopenia, normal platelet count, electrolytes, renal function, blood sugar, iron, liver function, LDL at 130 mg/dL, and PSA at 0.81 ng/mL. Plan 1. Emphasis on maintaining his current healthy lifestyle is encouraged to aid in the sustainability of his overall health.: Patient was informed and verbally consented to the use of an ambient scribe for clinic note documentation during this visit. Discussion Notes I discussed with the patient the importance of continuity in dietary habits and physical exercise, both contributing positively to his cholesterol level management and overall health. The risks and benefits of continuing his current plan were reviewed, with particular focus on maintaining PSA levels through regular urology consultations. I reiterated the importance of regular screening and monitoring of his prostate-specific antigen and cholesterol levels. We discussed the last colonoscopy examination from 2015, emphasizing the significance of regular screening intervals. Patient consent was secured, and he is encouraged to maintain the physical activity and dietary measures as part of his overall health management. Patient Instructions - Continue current dietary habits to manage cholesterol levels. - Maintain daily exercise routine and aim for approximately 4 miles of walking. - Follow up regularly with your urologist to monitor PSA levels and manage prostate health. - Stay proactive about health screenings, such as colonoscopy, and consider scheduling as advised. - Monitor for any changes in health and seek care if concerns arise. Orders: Orders Complete Blood Count Auto Diff 6 Months R97.20 - Elevated prostate specific antigen [PSA] Comprehensive Met. Panel 6 Months R97.20 - Elevated prostate specific antigen [PSA] Thyroid Stimulating Hormone 6 Months R97.20 - Elevated prostate specific antigen [PSA] Lipid Panel 6 Months E78.00 - Pure hypercholesterolemia, unspecified, R97.20 - Elevated prostate specific antigen [PSA] PSA,Total (Free>4and<10) 6 Months R97.20 - Elevated prostate specific antigen [PSA] Free T4 (Free Thyroxine) 6 Months R97.20 - Elevated prostate specific antigen [PSA] Vitamin B12 and Folate 6 Months R97.20 - Elevated prostate specific antigen [PSA]
--- OUTSIDE RECORDS SUMMARY | 2024-08-05 15:32 | XMS_ITS | Encounter Summary ---
Author Organization [facility] Address [address] [place] [address] Care Team Providers Care Brand Marketing Coordinator Name Role Phone Raquel Ugarte MD Primary Care Provider [phone] Reason for Visit * Reason Comments Med Change Request Encounter Details Date Type Department Care Team (Late st Contact Info) Description 05/30/2022 Refill [facility] Urologic Surgery [address] [place] [id number] Jarrell Calderon MD [address] [address] Prostate cancer (HCC) Social History Tobacco Use Types Packs/Day Years Used Date Smoking Tobacco: Never Smokeless Tobacco: Never Sex and Gender Information Value Date Recorded Sex Assigned at Not on file Legal Sex Male 6:21 PM EST Gender Identity Not on file Sexual Orientation Not on file COVID-19 Exposure Response Date Recorded In the last 10 days, have yo u been in contact with someone who was confirmed or suspected to have Coronavirus/COVID-19? No / Unsure 05/29/2022 2:17 PM EST documented as of this encounter Miscellaneous Notes * Telephone Encounter - Josi Fuller RN - 05/31/2022 10:45 AM EST Request already filled 05/29 - appears to be duplicate request documented in this encounter Plan of Treatment Not on file documented as of this encounter Visit Diagnoses Diagnosis Prostate cancer (HCC) Malignant neoplasm of prostate documented in this encounter Care Teams Brand Marketing Coordinator Relationship Specialty Start Date End Date Po, Raquel Ford MD [address] [place], [place] [address], [place] [address] PCP - General Internal Medicine 05/09/22 documented as of this encounter
--- OUTSIDE RECORDS SUMMARY | 2024-08-05 15:32 | XMS_ITS | Clinical Summary ---
Author Organization [facility] Address [address] [place] [address] Care Team Providers Care Bsw Name Role Phone Raquel Ugarte MD Primary Care Provider [phone] Allergies No known active allergies Medications finasteride (PROSCAR) 5 MG tablet Take 1 tablet (5 mg total) by mouth daily. 05/07/2022 Active minocycline (MINOCIN) 100 MG capsule TAKE 1 CAPSULE BY MOUTH TWICE A DAY WITH FOOD 02/25/2022 Active sildenafil (REVATIO) 20 MG tabletIndicatio ns:Prostate cancer (HCC) Take 3-5 tabs 1 hour before sex. Take 2 pills at bedtime if no sex that day. Maximum 5 pills a day. 90 tablet 11 05/29/2022 Active Active Problems Problem Noted Date Diagnosed Date Prostate cancer 05/29/2022 Family History Medical History Relation Name Comments Multiple myeloma Brother Cancer, Prostate Father 74 of brain anuerysm Cancer, Bladder Neg Hx Cancer, Kidney Neg Hx Relation Name Status Comments Brother Alive Father Social History Tobacco Use Types Packs/Day Years Used Date Smoking Tobacco: Never Smokeless Tobacco: Never Tobacco Cessation:Counseling Given: Not Answered Sex and Gender Information Value Date Recorded Sex Assigned at Not on file Legal Sex Male 6:21 PM EST Gender Identity Not on file Sexual Orientation Not on file Last Filed Vital Signs Vital Sign Reading Time Taken Comments Blood Pressure - - Pulse - - Temperature 36.1 ??C (96.9 ??F) 05/29/2022 2:31 PM ES T Respiratory Rate - - Oxygen Saturation - - Inhaled Oxygen Concentration - - Weight 73.9 kg (163 lb) 05/29/2022 2:31 PM EST p er pt Height 175.3 cm (5' 9 ) 05/29/2022 2:31 PM EST p er pt Body Mass Index 24.07 05/29/2022 2:31 PM EST Plan of Treatment Health Maintenance Due Date Last Done Comments Hepatitis C Virus Screening 1955 COVID-19 Vaccine (#1) 11/02/1959 DTaP/Tdap/Td Vaccines (1 - Tdap) 1973 Pneumococcal Vaccines 50+ (1 of 2 - PCV) 1973 Zoster (Shingles) Vaccine (1 of 2) 1973 Colonoscopy 11/02/1999 Influenza Vaccine 10/31/2024 RSV Vaccine 60 years and old er and Patients (1 - 1-dose 75+ series) 2029 Hepatitis B Vaccines Aged Out No long er eligible based on patient's age to complete this topic Insurance [facility] MEDICARE Care Teams Bsw Relationship Specialty Start Date End Date Raquel Ugarte MD [address] [place] [address] [place] [address] PCP - General Internal Medicine 05/09/22
--- OUTSIDE RECORDS SUMMARY | 2024-08-05 15:32 | XMS_ITS | Data Portability ---
Author Organization [place] - [facility], [address] Address [address] [place] [address] Assessment No assessment recorded. Plan of Treatment Reminders Order Date Submit Date Provider Last Modified By Organization Details Last Modified Time Details Appointments None recorded. Lab None recorded. Referral orthopedic surgeon referral - Partial subluxatio n of the first metacarpop halangeal joint. left thumb . need further evaluation and treatment. [facility]23 [facility], [address], [place], [address], 11:00:33 Procedures None recorded. Surgeries None recorded. Imaging XR, hand, 3 or more view 2023 024 [email or web address], [address] [place] [address].[place], [address], 09:47:59 Medication Orders None recorded. Patient TargetsNo targets recorded. Patient Instructions Encounter Date Encounter Id Patient Instructions Last Modified By Organization Details Last Modified Time 10/25/2023 [id number] learning about rice (rest, ice, compression, and [...] more view No observ ation record ed. [email or web address] [facility] [address] [place], [address], 10/25/2023 10:05:17 Result Notes None recorded. Problems Name Problem SNOMED Code Status Onset Date Resolution Date Notes Provider Name and Address Organization Details Recorded Time Pain in left thumb 9071718005060571 Active 2023 Raad Gibson, EARLY MORNING [address] , [place], [address], [place] - [facility] 09:05:32 Problem Notes None recorded. Procedures Surgical History None recorded. Imaging Results Imaging Date Name Status LastModified by Organiz ation Details LastModified Time 10/25/2023 XR, hand, 3 or more view completed [email or web address] [address] [place], [address], 10/25/2023 10:05:17 Procedure Notes None recorded. Medical [...] saturation in Arterial blood by Pulse oximetry Pain severity - 0-10 verbal numeric rating [Score] - Reported Heart rate Respiratory rate Body temperature Systolic blood pressure Diastolic blood pressure Provider Name and Address Organization Details Last Updated DateTime 4 175.26 cm 23.9 kg/m2 13856.9 6 g 99 % 99 % 8 71 /min 18 /min 97.6 [degF] 146 mm[Hg] 93 mm[Hg] Jacinta BE - [facility] 08:59:43 Social History Question Answer Notes LastModified by Organizat ion Details LastModified Time Tobacco Smoking Status Never Smoker [place] [facility] 10/25/2023 09:01:16 What Is Your Level Of Alcohol Consumption? Moderate [email or web address] Information not available 10/25/2023 Are You Currently Employed? Yes [email or web address] Information not available 10/25/2023 Have You Had A Flu Shot This Season? Yes [email or web address] Information not available 10/25/2023 Are You Passively Exposed To Smoke? No [email or web address] Information no t available 10/25/2023 Do You Use Any Illicit Or Recreational Drugs? No [email or web address] Information not available 10/25/2023 Have You Recently Traveled Abroad? No [email or web address] Information not available 10/25/2023 Do You Or Have You Ever Used Any Other Forms Of Tobacco Or Nicotine? No Information not available 10/25/2023 Sex: Unknown Functional Status None recorded. Mental Status None recorded. Family History Nothing Reported. Medical History No medical history recorded. Past Encounters Encounter ID Performer Location Encounter Start Date Encounter Closed Date Diagnosis/Indication Diagnosis SNOMED-CT Code Diagnosis ICD10 Code Diagnosis Note [id number] [address] 11/19/2021 09:20:42 11/19/2021 10:01:52 [id number] Raadmichelle Gibson, EARLY MORNING [address] [place] [address] 10/25/2023 08:51:34 10/25/2023 09:47:58 Pain in left thumb [id number] 361648 M79.645 Thumb pain is a common complaint. The functional anatomy and examinatio n of the thumb are described in the text. The history should focus on the mechanism of injury, while the examinatio n should include assessment of all thumb movements and joint stability. ? Plain radiograph s, including anteropost erior or posteroant erior, lateral, and oblique views, are the initial studies obtained to assess thumb injuries. Ultrasound can be useful for dynamic assessment of ligament injuries or imaging of other soft tissue pathology. Computed tomography may be needed to evaluate complex fractures. ? Thumb trauma often results in soft tissue injury. A simple laceration can be repaired once an examinatio n is completed. Major skin and soft tissue wounds that extend to a fractured bone, lacerated tendons, or an open tendon sheath or joint capsule must be managed immediatel y, including referral to a hand surgeon. ? Obvious deformity of the thumb following trauma raises concern for fracture or dislocatio n. Fractures of either phalanx and dislocatio ns of the metacarpop halangeal joint are most common. ? Joint instabilit y following thumb trauma suggests a ligamentou s injury. Tears of the ulnar collateral ligament and mallet thumb are most common. ? Nontraumat ic thumb pain usually represents a chronic or acute-on-c hronic condition. Diagnoses to consider include stenosing flexor tenosynovi tis (Trigger thumb), de Quervain? s tenosynovi tis, arthritis, and carpal tunnel syndrome. Important elements of each diagnosis are described in the text, but more complete discussion s are found separately . Health Concerns Section Related Observation LastModified by Organization Detai ls LastModified Time None Recorded Concern Status LastModified by Organization Details LastModified Time None Recorded Advance Directives Directive None Recorded Payers Encounter Date Sequence Insurance Name Policy Number Policy Rojas Covered Member ID Rojas Member ID Guarantor Name 11/19/2021 1 [employer] (MEDICAID REPLACEMENT - HMO) Florian Medel [id number] Florian Medel 10/25/2023 1 [employer] (MEDICAID REPLACEMENT - HMO) Florian Medel [id number] Florian Medel Notes Date Note Type Note [...] ROM;swelling Treatment:rest; ice Raad TAM Gibson [address] [place], [address], [place] - [facility] 10/25/2023 09:56:11
--- OUTSIDE RECORDS SUMMARY | 2024-08-05 15:32 | XMS_ITS | Clinical Summary ---
Author Organization [facility] Address [address] [place] [address] Care Team Providers Care Print Graphic Designer Name Role Phone Raquel Ugarte MD Primary Care Provider [phone] Social History Tobacco Use Types Packs/Day Years Used Date Smoking Tobacco: Never Assessed Sex and Gender Information Value Date Recorded Sex Assigned at Not on file Legal Sex Male 1:11 PM EST Gender Identity Not on file Sexual Orientation Not on file Plan of Treatment Health Maintenance Due Date Last Done Comments COVID-19 Vaccine (#1) 11/02/1960 DTaP,Tdap,and Td Vaccines (1 - Tdap) 1973 Pneumococcal Vaccine: 50+ Years (1 of 2 - PCV) 1973 Zoster Vaccines (1 of 2) 1973 Abdominal Aortic Aneurysm (AAA) Screen 02/28/2022 Cholesterol Screening (Lipid Panel) 02/28/2022 Colorectal Cancer Screening: Colonoscopy 02/28/2022 Depression Screening 02/28/2022 Falls Risk Assessment 02/28/2022 Hepatitis C Screening 02/28/2022 Social Influencers of Health Screening 02/28/2022 Influenza Vaccine (Season Ended) 2024 01/14/2019, 12/31/2016 RSV Immunization Adult Patients (1 - 1-dose 75+ series) 2029 HIB Vaccines Aged Out No longer eligi ble based on patient's age to complete this topic HPV Vaccines Aged Out No longer eligi ble based on patient's age to complete this topic Hepatitis A Vaccines Aged Out No long er eligible based on patient's age to complete this topic Hepatitis B Vaccines Aged Out No long er eligible based on patient's age to complete this topic IPV Vaccines Aged Out No longer eligi ble based on patient's age to complete this topic MMR Vaccines Aged Out No longer eligi ble based on patient's age to complete this topic Meningococcal ACWY Vaccine Aged Out N o longer eligible based on patient's age to complete this topic Meningococcal B Vaccine Aged Out No l onger eligible based on patient's age to complete this topic RSV Immunization Patients Under 20 months Aged Out No longer eligible b ased on patient's age to complete this topic Varicella Vaccines Aged Out No longer eligible based on patient's age to complete this topic Care Teams Print Graphic Designer Relationship Specialty Start Date End Date Raquel Ugarte MD [address] [place] [address] [address] [facility] [place] [address] PCP - General Internal Medicine 11/21/19
--- OUTSIDE RECORDS SUMMARY | 2024-08-05 15:32 | XMS_ITS | Encounter Summary ---
Author Organization [facility] Address [address] [place] [address] Care Team Providers Care Ux Visual Designer Name Role Phone Raquel Ugarte MD Primary Care Provider [phone] Reason for Visit * Reason Comments Other Encounter Details Date Type Department Care Team ([facility] st Contact Info) Description 06/01/2022 Telephone [facility] Urologic Surgery [place] [address] [address] Jarrell Calderon MD [address] [address] Other Social History Tobacco Use Types Packs/Day Years [...] PM EST documented as of this encounter Plan of Treatment Not on file documented as of this encounter Visit Diagnoses Not on filedocumented in this encounter Care Teams Ux Visual Designer Relationship Specialty Start Date End Date Raquel Ugarte MD [address] [place] [address] Dr Barker Kaushik [place]FINO [place] [address] PCP - General Internal Medicine 05/09/22 documented as of this encounter
== END 2024-08-05 15:09 | disposition home or self-care (01) ==
LOC: HO.HMCH 14:09
PROVIDERS: PCP Internal Medicine; Visit Provider Internal Medicine
DX: C61 Malignant neoplasm of prostate (principal); E78.00 Pure hypercholesterolemia, unspecified; N40.0 Benign prostatic hyperplasia without lower urinary tract symptoms

== ENCOUNTER → 2024-08-05 14:08 | Outpatient (BNVA) | payer BC, SELFPAY | PROVIDERS: PCP Internal Medicine; Visit Provider Internal Medicine | DX: Z13.89 Encounter for screening for other disorder (principal) ==

== ENCOUNTER 2024-08-21 06:35 | Outpatient (REF) | payer BC, SELFPAY ==
--- OUTSIDE RECORDS SUMMARY | 2024-08-21 06:37 | XMS_ITS | Encounter Summary ---
Author Organization [facility] Address [address] [place] [address] Care Team Providers Care Take Away Attendant Name Role Phone Raquel Ugarte MD Primary Care Provider [phone] Reason for Visit * Reason Comments Other Encounter Details Date Type Department Care Team ([facility] st Contact Info) Description 06/01/2022 Telephone [facility] Urologic Surgery [place] [address] [address] Jarrell Calderon MD [address] [address] Other Social History Tobacco Use Types Packs/Day [...] on filedocumented in this encounter Care Teams Take Away Attendant Relationship Specialty Start Date End Date Raquel Ugarte MD [address] [place] [address] Dr Barker Kaushik [place]O [place] [address] PCP - General Internal Medicine 05/09/22 documented as of this encounter
--- OUTSIDE RECORDS SUMMARY | 2024-08-21 06:37 | XMS_ITS | Clinical Summary ---
Author Organization [facility] Address [address] [place] [address] Care Team Providers Care Metal Coater Operator Name Role Phone Raquel Ugarte MD Primary Care Provider [phone] Social History Tobacco Use Types Packs/Day Years [...] age to complete this topic Care Teams Metal Coater Operator Relationship Specialty Start Date End Date Raquel Ugarte MD [address] [place] [address] Dr [address] [facility] [place] [address] PCP - General Internal Medicine 11/21/19
--- OUTSIDE RECORDS SUMMARY | 2024-08-21 06:38 | XMS_ITS | Encounter Summary ---
Author Organization [facility] Address [address] [place] [address] Care Team Providers Care Cooler Supervisor Name Role Phone Raquel Ugarte MD Primary Care Provider [phone] Reason for Visit * Reason Comments Med Change Request Encounter Details Date Type Department Care Team (Late st Contact Info) Description 05/30/2022 Refill [facility] Urologic Surgery [address] [place] [phone] Jarrell Calderon MD [address] [address] Prostate cancer (HCC) Social History Tobacco Use [...] prostate documented in this encounter Care Teams Cooler Supervisor Relationship Specialty Start Date End Date Po, Raquel Ford MD [address] [facility] [address] Barker [address] [place], [place] [address], [place] [address] PCP - General Internal Medicine 05/09/22 documented as of this encounter
--- OUTSIDE RECORDS SUMMARY | 2024-08-21 06:38 | XMS_ITS | Data Portability ---
Author Organization [place] [facility], [address] Address [address] [place] [address] Assessment No assessment recorded. Plan of Treatment Reminders Order Date Submit Date Provider Last Modified By Organization Details Last Modified Time Details Appointments None recorded. Lab None recorded. Referral orthopedic surgeon referral - Partial subluxatio n of the first metacarpop halangeal joint. left thumb . need further evaluation and treatment. [facility] [address], [place], [address], 11:00:33 Procedures None recorded. Surgeries None recorded. Imaging XR, hand, 3 or more view 2023 024 [email or web address], [address] [place] [address].[place], [address], 09:47:59 Medication Orders None recorded. Patient TargetsNo targets recorded. Patient Instructions Encounter Date Encounter Id Patient Instructions Last Modified By Organization Details Last Modified Time 10/25/2023 [id number] learning about rice (rest, ice, compression, and [...] more view No observ ation record ed. chica [facility] [address] [place], [address], 10/25/2023 10:05:17 Result Notes None recorded. Problems Name Problem SNOMED Code Status Onset Date Resolution Date Notes Provider Name and Address Organization Details Recorded Time Pain in left thumb 9193975306785353 Active 2023 Raad Gibson, MATERIAL MANAGER [address] , [place], [place], [address], [place] - [facility] 09:05:32 Problem Notes None recorded. Medical Equipment None Reported. [...] and Address Organization Details Last Updated DateTime 175.26 cm 23.9 kg/m2 11876.9 6 g 99 % 99 % 71 /min 18 /min 97.6 [degF] 146 mm[Hg] 93 mm[Hg] Jacinta Mendez [place] - [facility] 08:59:43 Social History Question Answer Notes LastModified by Organizat ion Details LastModified Time Tobacco Smoking Status Never Smoker Jacinta gonzalez [place] - [facility] 10/25/2023 09:01:16 Have You Had A Flu Shot This Season? Yes [email or web address] Information not available 10/25/2023 Are You Passively Exposed To Smoke? No [email or web address] Information not available 10/25/2023 Have You Recently Traveled Abroad? No [email or web address] Information not available 10/25/2023 Sex: Unknown Functional Status Question Answer Note LastModified by Organizat ion Details LastModified Time Do you use any illicit or recreational drugs? No Information not available 10/25/2023 Do you or have you ever used any other forms of tobacco or nicotine? No [email or web address] Information not available 10/25/2023 What is your level of alcohol consumption? Moderate Information not available 10/25/2023 Are you currently employed? Yes [email or web address] Information not available 10/25/2023 Mental Status None recorded. Family History Nothing Reported. Medical History No medical history recorded. Past Encounters Encounter ID Performer Location Encounter Start Date Encounter Closed Date Diagnosis/Indication Diagnosis SNOMED-CT Code Diagnosis ICD10 Code Diagnosis Note [id number] [address] [place] [address] 11/19/2021 09:20:42 11/19/2021 10:01:52 [id number] Raad Gibson, MATERIAL MANAGER [address] [place] [address] 10/25/2023 08:51:34 10/25/2023 09:47:58 Pain in left thumb [id number] M79.645 Thumb pain is a common complaint. [...] Recorded Advance Directives Directive None Recorded Payers Insurance Date Sequence Insurance Name Policy Number Policy Rojas Covered Member ID Rojas Member ID Guarantor Name 10/25/[address] [facility] (MEDICAID REPLACEMENT - O) Florian Medel [id number] Florian Medel Notes Date Note Type Note [...] Raad TAM Gibson [address] [place], [address], [place] - [facility] 10/25/2023 09:56:11
--- OUTSIDE RECORDS SUMMARY | 2024-08-21 06:38 | XMS_ITS | Clinical Summary ---
Author Organization [facility] Address [address] [place] [address] Care Team Providers Care Retail Marketing Specialist Name Role Phone Raquel Ugarte MD Primary Care Provider [phone] Allergies No known active allergies Medications finasteride [...] patient's age to complete this topic Insurance [facility] MEDICARE Care Teams Retail Marketing Specialist Relationship Specialty Start Date End Date Raquel Ugarte MD [address] [place] [address] [place] [address] PCP - General Internal Medicine 05/09/22
[2024-08-21 06:53] LABS: MANUAL DIFF FLAG NO
[2024-08-21 07:21] LABS: Basophils Percent Auto 0.5 % (0-2); Eosinophils Percent Auto 1.1 % (0-4); Hematocrit 45.2 % (42.0-52.0); Lymphocytes Absolute Auto 1.1 X10*3/uL (1.2-4.9); Lymphocytes Percent Auto 30.1 % (20-40); Mean Corpuscular HGB Conc 33.2 g/dl (31.0-36.0); Mean Corpuscular Hemoglobin 31.3 pg (27.0-33.0); Mean Corpuscular Volume 94.2 fL (80.0-98.0); Mean Platelet Volume 10.3 fL (9.4-12.4); Monocytes Absolute Auto 0.3 X10*3/uL (0.1-1.2); Monocytes Percent Auto 6.9 % (2-11); Neutrophils Absolute Auto 2.3 x10*3/uL (2.0-8.3); Neutrophils Percent Auto 61.4 % (45-73); Platelet Count 166 X10*3/uL (160-400); Red Cell Distribution Width 12.4 % (11.0-16.0); White Blood Count 3.8 X10*3/uL (4.8-10.8)
[2024-08-21 08:02] LABS: Alanine Aminotransferase 21 U/L (0-40); Albumin Level 4.2 g/dL (3.5-5.0); Alkaline Phosphatase 47 U/L (39-117); Anion Gap 10 (12-20); Aspartate Amino Transferase 30 U/L (5-37); Bilirubin Total 0.4 mg/dL (0.0-1.0); Blood Urea Nitrogen 21 mg/dL (9-16); Calcium 9.1 mg/dL (8.4-10.2); Carbon Dioxide 25 mmol/L (22-29); Chloride 109 mmol/L (96-108); Cholesterol 194 mg/dL (<200); Estimated Glomerular Filt Rate > 60; Glucose Random 85 mg/dL (60-115); HDL Cholesterol 62 mg/dL (>40); LDL Cholesterol Calculated 118 mg/dL (<100); Potassium 4.2 mmol/L (3.3-5.1); Sodium 140 mmol/L (135-145); Total Protein 6.6 g/dL (6.5-8.0); Triglycerides 73 mg/dL (<150)
[2024-08-21 08:05] LABS: PSA,Total (Free>4and<10) 0.91 ng/mL (0.00-4.00)
[2024-08-21 08:18] LABS: Folate 12.3 ng/mL (> or = 4.0); Vitamin B12 632 pg/mL (200-900)
[2024-08-21 08:19] LABS: Free T4 (Free Thyroxine) 0.99 ng/dL (0.71-1.85); Thyroid Stimulating Hormone 2.07 uIU/mL (0.32-4.0)
== END 2024-08-21 06:36 | disposition home or self-care (01) ==
LOC: HO.LAB 06:35
PROVIDERS: PCP Internal Medicine; Visit Provider Urology
DX: R97.20 Elevated prostate specific antigen [PSA] (principal); E78.00 Pure hypercholesterolemia, unspecified; Z12.5 Encounter for screening for malignant neoplasm of prostate
CPT/HCPCS: 36415; 80053; 80061; 82607; 82746; 84153; 84439; 84443; 85025

== ENCOUNTER 2024-08-29 08:55 | Outpatient (AMB) | payer BC, SELFPAY ==
--- OUTSIDE RECORDS SUMMARY | 2024-08-29 09:00 | XMS_ITS | Encounter Summary ---
Author Organization [facility] Address [address] [place] [address] Care Team Providers Care Warehouse Stock Clerk Name Role Phone Raqeul Ugarte MD Primary Care Provider [phone] Reason for Visit * Reason Comments Other Encounter Details Date Type Department Care Team ([facility] st Contact Info) Description 06/01/2022 Telephone [facility] Urologic Surgery [place] [address] [address] Jarrell Calderon MD [address] [address] Other Social History Tobacco Use Types Packs/Day [...] on filedocumented in this encounter Care Teams Warehouse Stock Clerk Relationship Specialty Start Date End Date Raquel Ugarte MD [address] [place] [address] Dr Barker Kaushik [place] [address] PCP - General Internal Medicine 05/09/22 documented as of this encounter
--- NOTE | 2024-08-29 09:03 | MHC.OFFVIS ---
Intake Visit Reasons: 4 month follow up/ PSA Intake Note: Patient is present for 4M/PSA Urology Medication:NONE Antibiotic Allergy:NONE Blood Thinner:NONE Radio Equipment Installer Required: No Allergies No Known Allergies Allergy (Verified 08/29/24 09:04) HPI Comments Details: Florian is a very pleasant male. He is a patient of Dr. Morrison. He is seen for the following urologic conditions. - elevated PSA - lower urinary tract symptoms - prostate cancer PSA 02/22 <0.1 T 43, 06/23 <0.1, 11/23 1.2 T 850, 03/25 0.8, 08/24 0.9 PSA stable Otherwise doing well with control Six-month follow-up Prostate Cancer 03/2322 Grade group 3, Low Volume 09/22 EXBRT with short-term 6 month [facility] [address] George 20 fractions Diagnosed for PSA 4.1 Size at diagnosis 35 gm pT1c Rosepine score: 4+3=7 (right base lateral) 20% ; 3+3=6 (right mid lateral) 20% Tumor quantitation: Number cores positive: 2 Total number of cores: 12 % of tissue involved: = Less than 5% of all tissue examined Periprostatic fat inv.: Not identified Seminal vesicle inv.:Not identified Perineural inv.: Not identified LVI: Not identified Laboratory investigations include 02/18 4.5, 07/20 4.0, 01/19 3.6, 07/21 3.9, 01/20 4.8, 06/21 3.5, 01/21 4.1 14% Imaging 04/24 - MRI PI-RADS 3 0.7 cc organ contained Genetics - 04/24 Prolaris multimodal therapy PFSH Medical History (Updated 02/05/24 @ 15:48 by Raquel Ugarte MD) Pain of left thumb Hypercholesterolemia BPH (benign prostatic hyperplasia) Dupuytren's contracture of right hand GERD (gastroesophageal reflux disease) Hiatal hernia Acne C3 cervical fracture Social History (Updated 02/05/24 @ 15:51 by Raquel Ugarte MD) Housing: Apartment Alcohol intake: current Comment: daily wine Patient Tobacco Use Status: Former Tobacco user Tobacco use type: Cigarette Years Smoked: stopped 07/2014 (intermittent 17 year 4-5 cigarettes ) e-Cigarette/Vaping Use: Never Used Second Hand Smoke Exposure: No service: No Current occupational status: retired Current occupation: right hand dominant Cognitive needs: No Hearing needs: No Vision needs: Yes Review of Systems Const Denies chills and Denies fever(s) Card Reports no additional complaints and Denies syncope Resp Denies cough GI Denies abdominal pain and Denies heartburn Reports as per HPI and Denies change in libido Neuro Denies syncope Psych Denies change in libido Endo Denies change in libido Physical Exam Const General: cooperative, healthy appearing, comfortable and no acute distress Orientation/consciousness: patient oriented x3 HEENT Face and sinus: Yes normal facial exam Mouth: moist mucous membranes Neck Neck: Yes normal visual inspection, Yes full ROM and Yes trachea midline Chest Chest palpation & inspection: normal inspection of the chest Resp Effort & Inspection: normal respiratory effort, able to speak in complete sentences and no respiratory distress GI Inspection: Yes normal to inspection Back/Spine/Pelvis Cervical Spine: normal cervical lordosis Thoracic/Lumbar Spine: thoracic and lumbar spine normal to inspection Skin General skin exam: no rashes or lesions noted Neuro General: patient oriented x3, gait normal, tone normal and moves all extremities Extrem General: Yes normal to inspection and Yes capillary refill normal Assessment & Plan Assessment & Plan (1) BPH (benign prostatic hyperplasia): Code(s): N40.0 - Benign prostatic hyperplasia without lower urinary tract symptoms Category: Medical (2) Prostate cancer: Comment: 03/23 unfavorable intermediate risk January 2022 treatment with EXBRT 09/22 Code(s): C61 - Malignant neoplasm of prostate Category: Medical Plan Six-month follow-up PSA Orders: Orders Prostate Specific Antigen 6 Months C61 - Malignant neoplasm of prostate Patient Instructions: This note is constructed using voice recognition software. While every effort has been made to ensure accuracy crossing supervisor errors may have been included. Imaging studies, laboratory and physical exam results were discussed and reviewed in detail. No major barriers to patient understanding were identified. An opportunity to ask questions regarding the treatment plan was provided. All questions were answered. The patient expressed understanding and agreement with the above treatment plan. The patient is aware they should contact our office by phone for worsening of their current condition or the appearance of new urologic symptoms. Compliance is encouraged with any medications and followup testing that is ordered. It is a privilege to participate in the urologic care of your patient. If you have any questions or concerns regarding treatment for the above conditions, or other urologic issues, please do not hesitate to contact me. The office telephone contact is [phone]. Sincerely, Dr Maroi Heredia MD, [facility] - Urology Compassionate Specialist Care for the Genitourinary System Coding Level of Care Code Est Pt Level 3 (06893) Complex EM visit Add On G2211 Diagnoses BPH (benign prostatic hyperplasia) N40.0 Prostate cancer C61
== END 2024-08-29 09:42 | disposition home or self-care (01) ==
LOC: HO.HUSH 08:56
PROVIDERS: PCP Internal Medicine; Visit Provider Urology
DX: N40.0 Benign prostatic hyperplasia without lower urinary tract symptoms (principal); C61 Malignant neoplasm of prostate
CPT/HCPCS: 99213

== ENCOUNTER 2025-02-10 14:31 | Outpatient (AMB) | payer BC, MEDICARE, SELFPAY ==
[2025-02-10 15:17] VITALS: BP 138/82; PULSE 65; TEMP 36.5; O2SAT 98; BMI 24.4
--- NOTE | 2025-02-10 15:17 | A.OFFPC_ITS ---
Vital Signs 02/10/25 15:17 Height 5 ft 9 in Weight 165 lb BMI 24.4 BP 138/82 Blood Pressure Location Lt brachial Position Sitting Pulse 65 Pulse Source Pulse Oximeter Temp 97.7 F Temp Source Temporal Artery Scan Pulse Oximetry (%) 98 Oxygen Delivery Method Room Air Intake Visit Reasons: Annual exam Allergies No Known Allergies Allergy (Verified 02/10/25 15:20) Medication List - Last Reconciled 02/10/25 by Raquel Ugarte MD cholecalciferol (vitamin D3) 25 mcg PO DAILY ibuprofen 400 mg PO Q8H PRN multivitamin 1 tab PO DAILY Tobacco use date assessed: 02/10/25 Fall risk assessment: No Falls in past year Last assessed Fall Risk: 02/10/25 Dental Screening Dental Screen Date: 02/10/25 Did you have a dental visit in the last 12 months?: Yes Did you have a dental problem in the last 6 months where you did not have access to dental care?: No Was dental information given to patient?: Patient has dentist [facility] Medical History (Updated 02/10/25 @ 15:43 by Raquel Ugarte MD) Annual physical exam Annual physical exam Pain of left thumb Hypercholesterolemia BPH (benign prostatic hyperplasia) Dupuytren's contracture of right hand GERD (gastroesophageal reflux disease) Hiatal hernia Acne C3 cervical fracture Social History (Updated 02/10/25 @ 15:44 by Raqule Ugarte MD) Housing: Apartment Alcohol intake: current Comment: daily wine 1.5 glass Patient Tobacco Use Status: Former Tobacco user Tobacco use type: Cigarette Years Smoked: stopped 07/2014 (intermittent 17 year 4-5 cigarettes ) e-Cigarette/Vaping Use: Never Used Second Hand Smoke Exposure: No service: No Current occupational status: retired Current occupation: right hand dominant Cognitive needs: No Hearing needs: No Vision needs: Yes Questionnaire PHQ-9 Over the last 2 weeks, how often have you been bothered by any of the following problems? 1. Little interest or pleasure in doing things: not at all 2. Feeling down, depressed, or hopeless: not at all 3. Trouble falling or staying asleep, or sleeping too much: not at all 4. Feeling tired or having little energy: not at all 5. Poor appetite or overeating: not at all 6. Feeling bad about yourself - or that you are a failure or have let yourself or your family down: not at all 7. Trouble concentrating on things, such as reading the newspaper or watching television: not at all 8. Moving or speaking so slowly that other people could have noticed. Or the opposite - being so fidgety or restless that you have been moving around a lot more than usual: not at all 9. Thoughts that you would be better off or of hurting yourself in some way: not at all Total score: 0 Depression Screening Interpretation: Negative Depression Screening Done: Yes Source: Developed by Drs. Harley Silver, Radha Morales, Christian Rodriguez and colleagues, with an educational richard from [employer]. Thrive Questionnaire Date Thrive assessed: 07/29/24 I am a: Patient What is your living situation today?: I have a steady place to live Within the past 12 months, did the food you bought not last and you didn't have the money to get more?: Never true Within the past 12 months, did you worry whether your food would run out before you got money to buy more?: Never true Do you have trouble paying for medicines?: No Do you have trouble getting transportation to medical appointments?: No Do you have trouble paying your heating and electricity bill?: No Do you have trouble taking care of your child, family member or friend?: No Do you have trouble with day-to-day activities such as bathing, preparing meals, shopping, managing finances, etc.?: No Are you currently unemployed and looking for a job?: No Are you interested in more education?: No Please select the resources that you would like help with: None Currently or been in a relationship where the following occur: No concerns reported THRIVE Score: 0 AUDIT C Alcohol Use Questionnaire (AUDIT-C) 1. How often do you have a drink containing alcohol?: 4 or more times a week 2. How many drinks containing alcohol do you have on a typical day when you are drinking?: 1 or 2 3. How often do you have six or more drinks on one occasion?: Never Total Score: 4 REE-7 AMB Questionnaire REE-7 Date REE - 7 assessed: 08/05/24 Feeling nervous, anxious, or on edge: 0 = Not at all Not being able to stop or control worryin = Not at all Worrying too much about different things: 0 = Not at all Trouble relaxin = Not at all Being so restless that it is hard to sit still: 0 = Not at all Becoming easily annoyed or irritable: 0 = Not at all Feeling afraid as if something awful might happen: 0 = Not at all Total REE-7 score (0-4 normal; 5-9 mild; 10-14 moderate; 15-21 severe): 0 Source: Developed by Drs. Harley Silver, Radha Morales, Christian Rodriguez and colleagues, with an educational richard from [employer]. Review of Systems Const Denies poor appetite and Denies weakness Eyes Denies no additional complaints ENT Reports Normal hearing present, Denies dizziness, Denies nasal congestion, Denies tinnitus and Denies sore throat Card Denies chest pain, Denies syncope, Denies rapid heart rate and Denies dyspnea Resp Denies cough and Denies dyspnea GI Denies change in stool character, Reports constipation, Denies diarrhea, Denies nausea and Denies vomiting Denies dysuria and Denies urinary frequency Neuro Reports Normal hearing present, Denies confusion, Denies dizziness, Denies syncope and Denies weakness Psych Denies confusion Physical exam (Primary Care) Vital Signs: Last Vital Signs Temp 97.7 F 02/10/25 15:17 Pulse 65 02/10/25 15:17 BP 138/82 02/10/25 15:17 Pulse Ox 98 02/10/25 15:17 Oxygen Delivery Method Room Air 02/10/25 15:17 BMI result Body Mass Index 24.4 Tobacco/Smoking Status: Tobacco use Status Tobacco use date assessed 02/10/25 02/10/25 15:21 Patient Tobacco Use Status Former Tobacco user 02/10/25 15:44 Tobacco use type Cigarette 02/10/25 15:44 e-Cigarette/Vaping Use Never Used 02/10/25 15:44 PHQ-9: PHQ-9 Score PHQ-9: Total score 0 02/10/25 15:59 Depression Screening Interpretation: Negative Thrive Assessment: Date of Thrive Assessment Date Thrive assessed 07/29/24 02/10/25 15:21 Currently or been in a relationship where the following occur: No concerns reported Const General: No confusion Orientation/consciousness: No confusion HENMT Head: Yes normocephalic Ears: external ears normal and TM's normal bilaterally Face and sinus: Yes normal facial exam Mouth: moist mucous membranes Throat: Yes tonsils normal Eyes Conjunctivae: conjunctivae normal Pupils: Equal, round and reactive pupils present and Pupil accommodation reflex normal Direct Ophthalmoscopy: normal light reflex Neck Neck: No lymphadenopathy Thyroid: Thyroid normal Chest Chest palpation & inspection: normal inspection of the chest Resp Effort & Inspection: normal respiratory effort and no audible wheezes Auscultation: clear to auscultation bilaterally, no crackles, no wheezes and lung sounds not diminished Cardio Rate: regular rate Rhythm: regular rhythm Peripheral pulses: radial pulses present and dorsalis pedis present GI Palpation (GI): no masses Auscultation: normal bowel sounds and normoactive bowel sounds Rectal Exam - Male: Yes deferred Skin General skin exam: no rashes or lesions noted Rashes: no rashes Neuro General: No confusion Cranial nerves: Yes Equal, round and reactive pupils present and Yes Normal hearing present Cognition (Neuro): normal cognition Gait exam (Neuro): Normal gait present Motor exam (neuro): 5/5 motor strength present throughout Deep tendon reflexes (DTR's): Right brachioradialis reflex intensity grade: 2+, Left brachioradialis reflex intensity grade: 2+, Right patellar reflex intensity grade: 2+ and Left patellar reflex intensity grade: 2+ Extrem General: No edema Office Procedures Flu Questionnaire Does the patient have a severe egg allergy?: No Does the patient have severe life threatening allergies?: No Does the patient have a fever or illness today?: No Has the patient ever had Guillain-Leon Syndrome?: No Has the patient ever had any past reaction to a flu shot?: No Immunizations Fluarix [id number] (PF) 45 mcg (15 mcg x 3)/0.5 mL IM syringe Performing Provider: Raquel Ugarte MD Performing Location: [facility] [place] [facility] Administered by: Shelbi Orr CMA on 02/10/25 15:59 Dose Route Admin Location Dispensed Lot Number Expiration Date NDC Area Operations Manager 0.5 mL IM Left Deltoid 0.5 mL [id number] 09/29/25 [id number] VIS Given Date VIS Provided VIS Publication Date 02/10/25 Single Vaccine 24 Eligibility Eligibility Date Funding Source Not [facility] Eligible 02/10/25 Private Coding Level of Care Code Est Pt Prev Care >65y(42183) Diagnoses Annual physical exam Z00.00 C3 cervical fracture S12.200A Prostate cancer C61 Hypercholesterolemia E78.00 Right medial knee pain M25.561 Assessment & Plan Assessment & Plan (1) Annual physical exam: Code(s): Z00.00 - Encounter for general adult medical examination without abnormal findings Category: Medical Plan: Patient is advised to eat healthy, keep well hydrated, keep active and have adequate sleep. (2) C3 cervical fracture: Comment: fall ladder 10/2019 Code(s): S12.200A - Unspecified displaced fracture of third cervical vertebra, initial encounter for closed fracture Category: Medical Plan: Stable (3) Prostate cancer: Comment: 03/23 unfavorable intermediate risk January 2022 treatment with EXBRT 09/22 Code(s): C61 - Malignant neoplasm of prostate Category: Medical Plan: Under surveillance continue to follow-up with urology (4) Hypercholesterolemia: Code(s): E78.00 - Pure hypercholesterolemia, unspecified Category: Medical Plan: Avoid fried foods, chicken skin, eggs, butter margarine, pastries and meat. Be it pork or beef they have a lot of cholesterol (5) Right medial knee pain: Code(s): M25.561 - Pain in right knee Category: Medical Plan History of Present Illness The patient is a 69-year-old male presenting for a physical examination. His medical history is significant for a cervical fracture, benign prostatic hyperplasia (BPH), hypercholesterolemia, and prostate cancer diagnosed in March 2022. He is under surveillance for his prostate cancer and follows up with urology, with his last visit in July. Blood work from July 2024 revealed mild leukopenia but an otherwise normal blood count, electrolytes, renal function, and glucose. His liver function tests were normal, LDL cholesterol improved, and his PSA level was 0.91. Vitamin B12, folic acid, and thyroid levels were also within normal limits. The patient reports new onset of sharp pain in his right knee over the last 5-6 months, primarily on the medial side and exacerbated by descending stairs. He has a 20-year history of wearing a brace on his left knee due to weakness and swelling. He also has arthritis in his hips, which causes morning soreness that improves with activity; he occasionally takes ibuprofen for this. The patient had his first COVID-19 infection on December 27, with symptoms lasting about 10 days, the worst of which was a severe sore throat. For the past few months, he has noticed a gurgling or whirling sound in his left ear, particularly at night. His last colonoscopy was in 2015. He sees an instructor bridge every six months for monitoring the beginning stages of a condition, possibly glaucoma or cataracts. He is up to date on his shingles and pneumonia vaccinations. Health Maintenance The patient will receive his influenza shot today. He is due for a colonoscopy next year and will proceed with the screening. A request for routine blood work will be placed for six months from now, aligning with his usual schedule in July. Advised caution regarding circulating viruses such as influenza, COVID-19, and RSV. Social History - Alcohol Use: Reports drinking one to two glasses of wine or beer daily with or after dinner. - Tobacco Use: Former smoker, reports quitting on July 20, 2014. - Activity Level: Reports maintaining a good activity level. - Supplements: Takes vitamin D and a multivitamin. Review of Systems - Constitutional: Denies fever, passing out, or feeling dizzy. - HEENT: Ears: Reports a new gurgling or whirling sound in the left ear, especially at night, for the last few months. - HEENT: Hearing: States hearing is okay. - HEENT: Mouth/Throat: Denies problems with swallowing or coughing while eating. - Cardiovascular: Denies chest pains, heaviness, or discomfort. - Respiratory: Denies shortness of breath. - Gastrointestinal: Denies nausea, vomiting, or heartburn. - Gastrointestinal: Reports good bowel movements and denies blood in stool. - Genitourinary: Reports a slower urinary stream and waking up once per night to urinate. - Musculoskeletal: Reports arthritis in his hips with morning soreness that resolves with activity. - Musculoskeletal: Reports chronic left knee swelling and weakness requiring a brace for 20 years. - Musculoskeletal: Reports new, intermittent, sharp pain on the medial side of the right knee for 5-6 months, especially when going downstairs. Physical Exam General: Cooperative, healthy appearing, comfortable, no acute distress and well developed Orientation: Patient oriented x3 Limitations: No limitations Head: Normal to inspection Ears: Hearing grossly normal bilaterally, but patient reports a small gurgling or whirling sound in the left ear, especially at night. Nose: Normal external nose present Face and sinus: Normal facial exam Eyes: Appearance normal, both eyes and all related structures Neck: Normal visual inspection and Yes full ROM Respiratory: Normal respiratory effort and able to speak in complete sentences. Clear to auscultation bilaterally Cardiovascular: Regular rate and rhythm. Normal S1 and S2 GI: Normal to inspection. Soft to palpation and nontender Skin: No rashes or lesions noted Neuro: Patient oriented x3 Extremities: Normal to inspection, but patient reports arthritis in hips and new pain in the right knee, described as a sharp pain on the inside, especially when going downstairs. No redness or swelling noted. Results - Labs from July 2024: Mild leukopenia noted, with normal complete blood count otherwise. - Chemistry panel: Normal electrolytes, renal function, and glucose levels. - Liver Function Tests: Reported as good. - Lipid Panel: LDL cholesterol has improved. - Tumor Markers: Prostate-specific antigen (PSA) was 0.91. - Vitamin/Hormone Levels: Vitamin B12, folic acid, and thyroid levels were within normal limits. Plan Patient was informed and verbally consented to the use of an ambient scribe for clinic note documentation during this visit. 1. Prostate Cancer, Under Surveillance The patient is under surveillance for prostate cancer and will continue to follow up with his urologist. He has a blood draw scheduled on March 20 with urology, which will include a prostate-specific antigen (PSA) level check. 2. Hypercholesterolemia The patient's LDL cholesterol has shown improvement. A request for blood work will be placed for six months from now to continue monitoring. 3. Right Knee Pain The patient describes a new-onset sharp, intermittent pain on the medial side of his right knee, suspicious for tendinitis. The concept of tendinitis as inflammation of tendon attachments was explained. The plan is to monitor symptoms at this time. Discussion Notes I discussed the patient's physical exam findings with him, noting his overall good health and well-controlled blood pressure. We reviewed his new right knee pain, explaining that its location and character are suggestive of tendinitis, which is inflammation of the tendon attachments. We also discussed the new gurgling sound in his left ear, for which the physical exam was unremarkable. We agreed to defer lab work today, as he has a blood draw scheduled with his urologist on March 20, and I will place an order for his next routine labs in six months. The patient will receive his influenza vaccine today. We confirmed he is due for a colonoscopy next year, and he plans to schedule it. I advised him to be careful during the upcoming season due to the early circulation of influenza and other viruses like RSV and COVID. Patient Instructions - You will receive your flu shot today. - Please continue to follow up with your urology specialist for your prostate health. - Your next routine blood work will be in about six months. - It is recommended that you schedule a colonoscopy next year, as it will be due. - For the new pain in your right knee, continue to monitor your symptoms. - Take precautions during the holiday season, as flu, RSV, and COVID viruses are spreading. Orders: Orders Comprehensive Met. Panel 6 Months E78.00 - Pure hypercholesterolemia, unspecified Thyroid Stimulating Hormone 6 Months E78.00 - Pure hypercholesterolemia, unspecified Vitamin B12 and Folate 6 Months E78.00 - Pure hypercholesterolemia, unspecified Prostate Specific Antigen Scr 6 Months E78.00 - Pure hypercholesterolemia, unspecified Complete Blood Count Auto Diff 6 Months E78.00 - Pure hypercholesterolemia, unspecified Free T4 (Free Thyroxine) 6 Months E78.00 - Pure hypercholesterolemia, unspecified Lipid Panel 6 Months E78.00 - Pure hypercholesterolemia, unspecified Influenza 1040-0227 Immunization Today Z23 - Encounter for immunization
--- OUTSIDE RECORDS SUMMARY | 2025-02-10 16:14 | XMS_ITS | Data Portability ---
Author Organization [place] [facility], [address] Address [address] [place] [address] Assessment No assessment recorded. Plan of Treatment Reminders Order Date Submit Date Provider Last Modified By Organization Details Last Modified Time Details Appointments None recorded. Lab None recorded. Referral orthopedic surgeon referral - Partial subluxatio n of the first metacarpop halangeal joint. left thumb . need further evaluation and treatment. 2023 024 [facility], [address], [place], [address], 11:00:33 Procedures None recorded. Surgeries None recorded. Imaging XR, hand, 3 or more view 2023 024 [email or web address], [address] [place] [address], [address], 09:47:59 Medication Orders None recorded. Patient TargetsNo targets recorded. Patient Instructions Encounter Date Encounter Id Patient Instructions Last Modified By Organization Details Last Modified Time 10/25/2023 [id number] learning about rice (rest, ice, compression, and [...] record ed. chica [facility] [address] [place], [address], 10/25/2023 10:05:17 Result Notes None recorded. Problems Name Problem SNOMED Code Status Onset Date Resolution Date Notes Provider Name and Address Organization Details Recorded Time Pain in left thumb 5628661785650145 Active 2023 Raad Gibson, HOME CARE NURSE [address] , [place], [place], [address], [place] - [facility] 09:05:32 Problem [...] Heart rate Respiratory rate Body temperature Systolic And Diastolic Provider Name and Address Organization Details Last Updated DateTime 175.26 cm 23.9 kg/m2 33083.9 6 g 99 % 99 % 8 71 /min 18 /min 97.6 [degF] 146/93 mm[Hg] Jacinta Mendez [place] - [facility] 08:59:43 Social History Question Answer Notes LastModified by [employer] Details LastModified Time Tobacco Smoking Status Never Smoker Jacinta gonzalez [place] - [facility] 10/25/2023 09:01:16 Have You Had A Flu Shot This Season? Yes [email or web address] Information not available 10/25/2023 Are You Passively Exposed To Smoke? No [email or web address] Information not available 10/25/2023 Have You Recently Traveled Abroad? No [email or web address] Information not available 10/25/2023 Sex: Unknown Functional Status Question Answer Note LastModified by [employer] ion Details LastModified Time Do you use any illicit or recreational drugs? No Information not available 10/25/2023 Do you or have you ever used any other forms of tobacco or nicotine? No [email or web address] Information not available 10/25/2023 What is your level of alcohol consumption? Moderate [email or web address] Information not available 10/25/2023 Are you currently employed? Yes [email or web address] Information not available 10/25/2023 Mental Status None recorded. Family History Nothing Reported. Medical History No medical history recorded. Past Encounters Encounter ID Performer Location Encounter Start Date Encounter Closed Date Diagnosis/Indication Diagnosis SNOMED-CT Code Diagnosis ICD10 Code Diagnosis IMO Codes Diagnosis Note [id number] [address] [place] [address] 11/19/2021 09:20:42 11/19/2021 10:01:52 [id number] Raad Gibson HOME CARE NURSE [address] [place] [address] 10/25/2023 08:51:34 10/25/2023 09:47:58 Pain in left thumb [id number] M79.645 Thumb pain is a common complaint. The functional anatomy and examinatio n of the thumb are described in the text. The history should focus on the mechanism of injury, while the examinatio n should include assessment of all thumb movements and joint stability. Plain radiograph s, including anteropost erior or posteroant erior, lateral, and oblique views, are the initial studies obtained to assess thumb injuries. Ultrasound can be useful for dynamic assessment of ligament injuries or imaging of other soft tissue pathology. Computed tomography may be needed to evaluate complex fractures. Thumb trauma often results in soft tissue injury. A simple laceration can be repaired once an examinatio n is completed. Major skin and soft tissue wounds that extend to a fractured bone, lacerated tendons, or an open tendon sheath or joint capsule must be managed immediatel y, including referral to a hand surgeon. Obvious deformity of the thumb following trauma raises concern for fracture or dislocatio n. Fractures of either phalanx and dislocatio ns of the metacarpop halangeal joint are most common. Joint instabilit y following thumb trauma suggests a ligamentou s injury. Tears of the ulnar collateral ligament and mallet thumb are most common. Nontrauma tic thumb pain usually represents a chronic or acute-on-c hronic condition. Diagnoses to consider include stenosing flexor tenosynovi tis (Trigger thumb), de Quervain s tenosynov itis, arthritis, and carpal tunnel syndrome. Important elements [...] HOSPITAL (MEDICAID REPLACEMENT - O) Florian Medel [id number] Florian Medel Notes Date Note Type Note Provider Name and Address Organization Details Recorded Time 10/25/2023 text/html Finger PainRepor fabiola by PatientHistoryFor location, patient reportsmcp jointandproximal phalanxbut reportslocation: leftandthumb finger. For source of patient information, patient reportssource of patient information patient(breaking a dog fight and himself fell and now have left thumb pain .). For onset, patient reportsabrupt onsetandstarted after an event.Neurovascular StatusFor neurovascular status, patient reportsno numbness or tingling.SymptomsFor symptoms, patient reportspain with romandswelling.Treatme ntFor treatment, patient reportsrestandice. Raad Gibson NP [address] [place], [address], [place] - [facility] 10/25/2023 09:56:11
--- OUTSIDE RECORDS SUMMARY | 2025-02-10 16:14 | XMS_ITS | Clinical Summary ---
Author Organization [facility] Address [address] [place] [address] Care Team Providers Care Chainsaw Mechanic Name Role Phone Raquel Ugarte MD Primary Care Provider [phone] Allergies No known active allergies Medications finasteride [...] - - Pulse - - Temperature 36.1 C (96.9 F) 05/29/2022 2:31 PM EST Respiratory Rate - - Oxygen Saturation - - Inhaled Oxygen Concentration - - Weight 73.9 kg (163 lb) 05/29/2022 2:31 PM EST p er pt Height 175.3 cm (5' 9 ) 05/29/2022 2:31 PM EST p er pt Body Mass Index 24.07 05/29/2022 2:31 PM EST Plan of Treatment Health Maintenance Due Date Last Done Comments Advance Care Planning 1955 Hepatitis C Virus Screening 1955 COVID-19 Vaccine (#1) 11/02/1959 DTaP/Tdap/Td Vaccines (1 - Tdap) 1973 Pneumococcal Vaccines 50+ (1 of 2 - PCV) 1973 Zoster (Shingles) Vaccine (1 of 2) 1973 Colonoscopy 11/02/1999 Influenza Vaccine 10/31/2024 RSV Vaccine 50 years and old er and Patients (1 - 1-dose 75+ series) 2029 Hepatitis B Vaccines Aged Out No long er eligible based on patient's age to complete this topic Insurance [facility] MEDICARE Care Teams Chainsaw Mechanic Relationship Specialty Start Date End Date Raquel Ugarte MD [address] [place] [address] [place] [address] PCP - General Internal Medicine 05/09/22
--- OUTSIDE RECORDS SUMMARY | 2025-02-10 16:14 | XMS_ITS | Patient Health Record ---
Author Organization [facility] Address [address] [place] [address] Care Team Providers Care Examining Chair Assembler Name Role Phone Po Raquel THOMAS Primary Care Provider Hero Lemus Jr Unavailable Reason For Referral No Information Medications Medication SIG (Take, Route, Frequency, Duration) Notes Start Date End Date Status Minocycline HCl 100 MG Orally Active Multi Vitamin/Minerals Orally Active Colyte with Flavor Packs 240 GM As directed Orally Over the specified time.; Duration: 1 day(s) 09/23/2015 Active Problems Problem Type SNOMED Code ICD Code Onset Dates Problem Status W/U Status Risk Notes Problem Colon cancer screening (830062787) Colon cancer screening (Z12.11) Active confirmed Problem Slow transit constipation (46917386) Slow transit constipation (K59.01) Active confirmed Problem Diverticular disease of colon (840854061) Diverticulosis of large intestine without hemorrhage (K57.30) Active confirmed Plan Of Treatment Future Test Test Name Order Date COLONOSCOPY 09/03/2014 COLONOSCOPY 09/23/2015 Insurance Providers Payer Name Payer Address Payer Phone Subscriber Number Group Number Insured Name Patient Relationship to Insured Coverage Start Date Coverage End Date [employer] [facility] [place] [phone] [id number] YAIR MOON Self - patient is the insured Medical (General) History Medical History History ICD Code colonoscopy 08-18-2005 acne Denies [place],DM,CVA,Lung disease,renal dise ase Surgical History Surgery Date(Month/Year) broken nose surgery
== END 2025-02-10 16:03 | disposition home or self-care (01) ==
LOC: HO.HMCH 14:32
PROVIDERS: PCP Internal Medicine; Visit Provider Internal Medicine
DX: Z00.00 Encounter for general adult medical examination without abnormal findings (principal); S12.200A Unspecified displaced fracture of third cervical vertebra, initial encounter for closed fracture; C61 Malignant neoplasm of prostate; E78.00 Pure hypercholesterolemia, unspecified; M25.561 Pain in right knee; Z23 Encounter for immunization

== ENCOUNTER → 2025-02-10 14:31 | Outpatient (BNVA) | payer MEDICARE, SELFPAY | PROVIDERS: PCP Internal Medicine; Visit Provider Internal Medicine | DX: Z00.00 Encounter for general adult medical examination without abnormal findings (principal); S12.200A Unspecified displaced fracture of third cervical vertebra, initial encounter for closed fracture; E78.00 Pure hypercholesterolemia, unspecified; M25.561 Pain in right knee; Z23 Encounter for immunization; X58.XXXA Exposure to other specified factors, initial encounter; Y93.9 Activity, unspecified; Y92.9 Unspecified place or not applicable; Y99.9 Unspecified external cause status | CPT/HCPCS: 90471; 90656; 96127 ==

== ENCOUNTER 2025-02-17 07:36 | Outpatient (REF) | payer MEDICARE, SELFPAY ==
[2025-02-17 09:08] LABS: Prostate Specific Antigen 0.50 ng/mL (<0.05-4.0)
== END 2025-02-17 07:37 | disposition home or self-care (01) ==
LOC: HO.LAB 07:36
PROVIDERS: PCP Internal Medicine; Visit Provider Urology
DX: C61 Malignant neoplasm of prostate (principal); Z12.5 Encounter for screening for malignant neoplasm of prostate
CPT/HCPCS: 36415; 84153

== ENCOUNTER 2025-02-25 08:53 | Outpatient (AMB) | payer BC, SELFPAY ==
--- NOTE | 2025-02-25 09:02 | MHC.OFFVIS ---
Intake Visit Reasons: 6M PSA/PVR(set) Intake Note: Reason for Visit: PSA/PVR Follow Up Urology Meds: None Blood Thinners: None Labs: PSA 0.50(02/17/2025) Imaging: None Last PVR: None PVR: 256ml Symptoms: Patient reports it takes some time to start urination but its not that bad, Reports he gets up once during the night but no significant change Electrophonic Engineer Required: No Accompanied by: Self / Same As Patient Allergies No Known Allergies Allergy (Verified 02/25/25 09:06) HPI Comments Details: Florian is a very pleasant male. He is a patient of Dr. Morrison. He is seen for the following urologic conditions. - elevated PSA - lower urinary tract symptoms - prostate cancer PSA 02/22 <0.1 T 43, 06/23 <0.1, 11/23 1.2 T 850, 03/25 0.8, 08/24 0.9, 02/24 0.5 PSA stable Mild hesitancy on starting urination Non-small bladder diverticulum Six-month follow-up out to 5 years Prostate Cancer 03/2322 Grade group 3, Low Volume 09/22 EXBRT with short-term 6 month [facility] [address] George 20 fractions Diagnosed for PSA 4.1 Size at diagnosis 35 gm pT1c [place] score: 4+3=7 (right base lateral) 20% ; 3+3=6 (right mid lateral) 20% Tumor quantitation: Number cores positive: 2 Total number of cores: 12 % of tissue involved: = Less than 5% of all tissue examined Periprostatic fat inv.: Not identified Seminal vesicle inv.:Not identified Perineural inv.: Not identified LVI: Not identified Laboratory investigations include 02/18 4.5, 07/20 4.0, 01/19 3.6, 07/21 3.9, 01/20 4.8, 06/21 3.5, 01/21 4.1 14% Imaging 04/24 - MRI PI-RADS 3 0.7 cc organ contained Genetics - 04/24 Prolaris multimodal therapy [facility] Medical History Annual physical exam Annual physical exam Pain of left thumb Hypercholesterolemia BPH (benign prostatic hyperplasia) Dupuytren's contracture of right hand GERD (gastroesophageal reflux disease) Hiatal hernia Acne C3 cervical fracture Social History Housing: Apartment Alcohol intake: current Comment: daily wine 1.5 glass Patient Tobacco Use Status: Former Tobacco user Tobacco use type: Cigarette Years Smoked: stopped 07/2014 (intermittent 17 year 4-5 cigarettes ) e-Cigarette/Vaping Use: Never Used Second Hand Smoke Exposure: No service: No Current occupational status: retired Current occupation: right hand dominant Cognitive needs: No Hearing needs: No Vision needs: Yes Review of Systems Const Denies chills and Denies fever(s) Card Reports no additional complaints and Denies syncope Resp Denies cough GI Denies abdominal pain and Denies heartburn Reports as per HPI and Denies change in libido Neuro Denies syncope Psych Denies change in libido Endo Denies change in libido Physical Exam Const General: cooperative, healthy appearing, comfortable and no acute distress Orientation/consciousness: patient oriented x3 HEENT Face and sinus: Yes normal facial exam Mouth: moist mucous membranes Neck Neck: Yes normal visual inspection, Yes full ROM and Yes trachea midline Chest Chest palpation & inspection: normal inspection of the chest Resp Effort & Inspection: normal respiratory effort, able to speak in complete sentences and no respiratory distress GI Inspection: Yes normal to inspection Back/Spine/Pelvis Cervical Spine: normal cervical lordosis Thoracic/Lumbar Spine: thoracic and lumbar spine normal to inspection Skin General skin exam: no rashes or lesions noted Neuro General: patient oriented x3, gait normal, tone normal and moves all extremities Extrem General: Yes normal to inspection and Yes capillary refill normal Office Procedures Post Void Residual Post Residual Void Post Void Residual (PVR): 256 [id number] Void Residual by ultrasound Results AMB Urinalysis, Automated UA Leukoctes 0 Monalisa/uL Last Edit by EVANGELINA Cormier on 02/25/25 09:12 UA Nitrite Negative Last Edit by EVANGELINA Cormier on 02/25/25 09:12 UA Urobilinogen 0.2 mg/dL Last Edit by EVANGELINA Cormier on 02/25/25 09:12 UA Protein 15 mg/dL Last Edit by EVANGELINA Cormier on 02/25/25 09:12 UA pH 6.0 Last Edit by Jazz Soto, RMA on 02/25/25 09:12 UA Blood 0 Keaton/uL Last Edit by Jazz Soto, RMA on 02/25/25 09:12 UA Specific Wingate 1.020 Last Edit by Jazz Soto, RMA on 02/25/25 09:12 UA Ketone Negative Last Edit by Jazz Soto, RMA on 02/25/25 09:12 UA Bilirubin 0 mg/dL Last Edit by Jazz Soto, RMA on 02/25/25 09:12 UA Glucose 0 mg/dL Last Edit by Jazz Soto, RMA on 02/25/25 09:12 Results Reviewed Results Reviewed: Laboratory Last Values Urine pH (Auto) 6.0 02/25/25 09:11 Specific Wing[place] (Auto) 1.020 02/25/25 09:11 Urine Protein (Auto) 15 mg/dL 02/25/25 09:11 Glucose (UA)(Auto) 0 mg/dL 02/25/25 09:11 Urine Ketones (Auto) Negative 02/25/25 09:11 Urine Blood (Auto) 0 Keaton/uL 02/25/25 09:11 Urine Nitrite (Auto) Negative 02/25/25 09:11 Urine Bilirubin (Auto) 0 mg/dL 02/25/25 09:11 Urine Urobilinogen (Auto) 0.2 mg/dL 02/25/25 09:11 Leukocyte Esterase (Auto) 0 Monalisa/uL 02/25/25 09:11 Assessment & Plan Assessment & Plan (1) Prostate cancer: Comment: 03/23 unfavorable intermediate risk January 2022 treatment with EXBRT 09/22 Code(s): C61 - Malignant neoplasm of prostate Category: Medical Plan Six-month follow-up Orders: Orders AMB Urinalysis Automated Today N40.0 - Benign prostatic hyperplasia without lower urinary tract symptoms, Z13.9 - Encounter for screening, unspecified Prostate Specific Antigen 6 Months C61 - Malignant neoplasm of prostate AMB Post Void Residual by ultrasound Today N40.0 - Benign prostatic hyperplasia without lower urinary tract symptoms Patient Instructions: This note is constructed using voice recognition software. While every effort has been made to ensure accuracy physical education instructor errors may have been included. Imaging studies, laboratory and physical exam results were discussed and reviewed in detail. No major barriers to patient understanding were identified. An opportunity to ask questions regarding the treatment plan was provided. All questions were answered. The patient expressed understanding and agreement with the above treatment plan. The patient is aware they should contact our office by phone for worsening of their current condition or the appearance of new urologic symptoms. Compliance is encouraged with any medications and followup testing that is ordered. It is a privilege to participate in the urologic care of your patient. If you have any questions or concerns regarding treatment for the above conditions, or other urologic issues, please do not hesitate to contact me. The office telephone contact is [phone]. Sincerely, Dr Mario Heredia MD, [facility] - Urology Compassionate Specialist Care for the Genitourinary System Coding Level of Care Code Est Pt Level 3 (48716) Complex visit Add On G2211 Diagnoses Prostate cancer C61 CPT Codes Post Residual Void - PVR CPT Code: 43474-Ntgs Void Residual by ultrasound ([id number])
--- OUTSIDE RECORDS SUMMARY | 2025-02-25 09:27 | XMS_ITS | Patient Health Record ---
Author Organization [facility] Address [address] [place] [address] Care Team Providers Care Lay Out Inspector Name Role Phone Po Raquel THOMAS Primary Care Provider Hero Lemus Jr Unavailable Reason For Referral No Information Medications Medication SIG (Take, Route, Frequency, Duration) Notes Start Date End Date Status Minocycline HCl 100 MG Capsule Orally Active Multi Vitamin/Minerals Tablet Orally Active Colyte with Flavor Packs 240 GM Solution Reconstituted As directed Orally Over the specified time.; Duration: 1 day(s) 09/23/2015 Active Social History Social History Additional Details Category Social Info Options Details Miscellaneous: Marital status: 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 Problems Problem Type SNOMED Code ICD Code Onset Dates Problem Status W/U Status Risk Notes Problem Colon cancer screening (238738327) Colon cancer screening (Z12.11) Active confirmed Problem Slow transit constipation (37798578) Slow transit constipation (K59.01) Active confirmed Problem Diverticular disease of colon (106900336) Diverticulosis of large intestine without hemorrhage (K57.30) Active confirmed Plan Of Treatment Future Test Test Name Order Date COLONOSCOPY 09/03/2014 COLONOSCOPY 09/23/2015 Insurance Providers Payer Name Payer Address Payer Phone Subscriber Number Group Number Insured Name Patient Relationship to Insured Coverage Start Date Coverage End Date [employer] Plan [address] [place] [phone] [id number] YAIR MOON Self - patient is the insured Medical (General) History Medical History History ICD Code colonoscopy 08-18-2005 acne Denies CA,DM,CVA,Lung disease,renal dise ase Surgical History Surgery Date(Month/Year) broken nose surgery
--- OUTSIDE RECORDS SUMMARY | 2025-02-25 09:27 | XMS_ITS | Data Portability ---
Author Organization [place] [facility], [address] Address [address] [place] [address] Assessment No assessment recorded. Plan of Treatment Reminders Order Date Submit Date Provider Last Modified By Organization Details Last Modified Time Details Appointments None recorded. Lab None recorded. Referral orthopedic surgeon referral - Partial subluxatio n of the first metacarpop halangeal joint. left thumb . need further evaluation and treatment. 2023 024 [facility], [address], [place], [address], 11:00:33 Procedures None recorded. Surgeries None recorded. Imaging XR, hand, 3 or more view 2023 024 [email or web address], [address] [place] [address], [address], 09:47:59 Medication Orders None recorded. Patient TargetsNo targets recorded. Patient Instructions Encounter Date Encounter Id Patient Instructions Last Modified By Organization Details Last Modified Time 10/25/2023 [id number] learning about rice (rest, ice, compression, and [...] [facility] [address] [place], [address], 10/25/2023 10:05:17 Result Notes None recorded. Problems Name Problem SNOMED Code Status Onset Date Resolution Date Notes Provider Name and Address Organization Details Recorded Time Pain in left thumb [id number] Active 2023 Raad Gibson, VERTICAL CONTOUR BAND SAW OPERATOR [address] , [place], [place], [address], [place] - [facility] 09:05:32 Problem Notes None recorded. Medical Equipment None Reported. Medications Name Sig Start Date Stop Date Status Note LastModified by Organization Details LastModified Time finasteride 5 mg tablet TAKE 1 TABLET BY MOUTH DAILY active Not Available Not Available No t Available Vitals Date Recorded Body height Body mass index (BMI) Body weight Oxygen saturation Pain severity - 0-10 verbal numeric rating [Score] - Reported Heart rate Respiratory rate Body temperature Systolic And Diastolic Provider Name and Address Organization Details Last Updated DateTime 4 175.26 cm 23.9 kg/m2 15961.9 6 g 99 % 8 71 /min 18 /min 97.6 [degF] 146/93 mm[Hg] Jacinta Mendez PA - [facility] 4 08:59:43 Social History Question Answer Notes LastModified by [employer] Details LastModified Time Tobacco Smoking Status Never Smoker Jacinta gonzalez [place] - [facility] 10/25/2023 09:01:16 Have You Had A Flu Shot This Season? Yes [email or web address] Information not available 10/25/2023 Are You Passively Exposed To Smoke? No [email or web address] Information not available 10/25/2023 Have You Recently Traveled Abroad? No [email or web address] Information not available 10/25/2023 Sex: Unknown Functional Status Question Answer Note LastModified by [employer] Details LastModified Time Do you use any illicit or recreational drugs? No [email or web address] Information not available 10/25/2023 Do you or have you ever used any other forms of tobacco or nicotine? No [email or web address] Information not available 10/25/2023 What is your level of alcohol consumption? Moderate [email or web address] Information not available 10/25/2023 Are you currently employed? Yes [email or web address] Information not available 10/25/2023 Mental Status None recorded. Family History Nothing Reported. Medical History No medical history recorded. Past Encounters Encounter ID Performer Location Encounter Start Date Encounter Closed Date Diagnosis/Indication Diagnosis SNOMED-CT Code Diagnosis ICD10 Code Diagnosis IMO Codes Diagnosis Note [id number] [address] [place] [address] 11/19/2021 09:20:42 11/19/2021 10:01:52 [id number] Raad Gibson, VERTICAL CONTOUR BAND SAW OPERATOR [address] [place] [address] 10/25/2023 08:51:34 10/25/2023 09:47:58 Pain in left thumb [id number] M79.645 Thumb pain is a common complaint. [...] Rojas Member ID Guarantor Name 10/25/2023 1 [facility] (MEDICAID REPLACEMENT - O) Florian Medel [id number] Florian Medel Notes Date Note Type Note [...] treatment, patient reportsrestandice. Raad Gibson NP [address] [place], [address], [place] - [facility] 10/25/2023 09:56:11
--- OUTSIDE RECORDS SUMMARY | 2025-02-25 09:27 | XMS_ITS | Clinical Summary ---
Author Organization [facility] Address [address] [place] [address] Care Team Providers Care Special Effects Makeup Artist Name Role Phone Raquel Ugarte MD Primary Care Provider [phone] Allergies No known active allergies Medications finasteride [...] patient's age to complete this topic Insurance [facility] MEDICARE Care Teams Special Effects Makeup Artist Relationship Specialty Start Date End Date Raquel Ugarte MD [address] [place] [address] [place] [address] PCP - General Internal Medicine 05/09/22
--- OUTSIDE RECORDS SUMMARY | 2025-02-25 09:27 | XMS_ITS ---
Author Name [facility] Organization Unknown History of Medication Use Medication Directions Dispensed Refills Start Date End Date Stat us sildenafil (REVATIO) 20 MG tablet Take 3-5 tabs 1 hour before sex. Take 2 pills at bedtime if no sex that day. Maximum 5 pills a day. 05/29/2022 active finasteride (PROSCAR) 5 MG tablet Take 1 tablet (5 mg total) by mouth daily. 05/07/2022 active minocycline (MINOCIN) 100 MG capsule TAKE 1 CAPSULE BY MOUTH TWICE A DAY WITH FOOD 02/25/2022 active No known medications No known medications active Problems Problem Status Onset Date Problem Type Date of Resoluti on Source Prostate cancer active 2022-05-29 ProblemAct CCT Encounters Encounter Type Encounter Reason Primary Diagnosis Location Date Ambulatory Prostatic adenocarcinoma [facility] 06/06/2022 Ambulatory Malignant neopla sm of prostate [facility] 05/29/2022 Care Team Organization Name Specialty Phone Email Start Date End Da mary [facility] ROSELINE RODRIGUEZ Primary Care 05/29/2022 05/29/2022 [facility] ROSELINE RODRIGUEZ Primary Care 05/29/2022
--- OUTSIDE RECORDS SUMMARY | 2025-02-25 09:27 | XMS_ITS | Clinical Summary ---
Author Organization [facility] Address [address] [place] [address] Care Team Providers Care Magnetic Healer Name Role Phone Raquel Ugarte MD Primary Care Provider [phone] Social History Tobacco Use Types Packs/Day Years Used Date Smoking Tobacco: Never Assessed Sex and Gender Information Value Date Recorded Sex Assigned at Not on file Legal Sex Male 1:11 PM EST Gender Identity Not on file Sexual Orientation Not on file Plan of Treatment Health Maintenance Due Date Last Done Comments Colorectal Cancer Screening: Colonoscopy 1954 DTaP,Tdap,and Td Vaccines (1 - Tdap) 1973 Pneumococcal Vaccine: 50+ Years (1 of 1 - PCV) 2004 Zoster Vaccines (1 of 2) 2004 Abdominal Aortic Aneurysm (AAA) Screen 02/28/2022 Cholesterol Screening (Lipid Panel) 02/28/2022 Falls Risk Assessment 02/28/2022 Hepatitis C Screening 02/28/2022 Social Influencers of Health Screening 02/28/2022 Depression Screening 04/02/2024 COVID-19 Vaccine (1 - 2024-2 6 season) 2024 Influenza Vaccine (#1) 2024 9, 12/31/2016 RSV Immunization Adult Patients (1 - [...] age to complete this topic Care Teams Magnetic Healer Relationship Specialty Start Date End Date Raquel Ugarte MD [address] [place] [address] Dr [address] [facility] [place] [address] PCP - General Internal Medicine 11/21/19
== END 2025-02-25 09:44 | disposition home or self-care (01) ==
LOC: HO.HUSH 08:54
PROVIDERS: PCP Internal Medicine; Visit Provider Urology
DX: Z13.9 Encounter for screening, unspecified (principal); N40.0 Benign prostatic hyperplasia without lower urinary tract symptoms; C61 Malignant neoplasm of prostate
CPT/HCPCS: 99213

== ENCOUNTER → 2025-02-25 08:53 | Outpatient (BNVA) | payer BC, SELFPAY | PROVIDERS: PCP Internal Medicine; Visit Provider Urology | DX: C61 Malignant neoplasm of prostate (principal); N40.1 Benign prostatic hyperplasia with lower urinary tract symptoms; R39.11 Hesitancy of micturition | CPT/HCPCS: 51798; 81003 ==